=== PATIENT | male | born 1970 | race Caucasian/White ===

== ENCOUNTER 2017-08-25 15:09 | Inpatient (IN) | payer MEDICAID, SELFPAY ==
[2017-08-25] VITALS (14 sets, daily range): BP systolic 84–156; BP diastolic 52–144; PULSE 76–102; RESP 11–27; TEMP 37.2–39.5; O2SAT 93–99; BMI 23.8; BMI 21.6
--- NOTE | 2017-08-25 15:23 | EKG12_ITS ---
Test Reason : REPEAT Blood Pressure : / mmHG Vent. Rate : 080 BPM Atrial Rate : 080 BPM P-R Int : 170 ms QRS Dur : 086 ms QT Int : 336 ms P-R-T Axes : 059 023 054 degrees QTc Int : 387 ms Normal sinus rhythm Normal ECG Confirmed by TEAGAN CHO, ALKA ([id number]), manuscript editor MARGOTH ALVAREZ ([id number]) on 08/26/2017 12:57:05 PM Referred By: ABI Confirmed By:ALKA CANDELARIA MD
--- NOTE | 2017-08-25 15:25 | RAD_ITS ---
STUDY: X-RAY CHEST REASON FOR EXAM: Male, 46 years old. Chest pain. TECHNIQUE: Single AP portable view of the chest. COMPARISON: None. FINDINGS: There are monitoring devices. There are lower lung linear and groundglass opacities. There is no demonstrated pleural abnormality. Normal size heart. Normal mediastinum and loyda. Normal visualized pulmonary arteries. Normal visualized aortic arch and descending thoracic aorta. There is a dextroscoliosis of the thoracic spine. Normal visualized ribs, clavicles, and shoulders. There is no demonstrated abnormality of the visualized soft tissue structures of the upper abdomen. RAD/Chest 1 View (Portable) IMPRESSION: Lower lung infiltrates or atelectasis. Electronically Signed: Nik Khan MD at 16:05 EDT , Service support ,
[2017-08-25] MEDS: 0.9% Normal Saline 1,000 ML 150 ML IV (15:51)
[2017-08-25 16:17] LABS: Absolute Lymphocyte Count 0.95 X10^3/ul (0.83-4.51); Absolute Neutrophil Count 8.8 X10^3/uL (2.0-7.7); Basophil# 0.02 X10^3/uL; Basophil% 0.2 % (0-1); Eosinophil# 0.38 X10^3/uL; Eosinophils% 3.3 % (0-5); Hematocrit 38.8 % (40-54); Hemoglobin 12.7 g/dl (13.0-16.5); Lymphocyte # 0.95 X10^3/ul (4.0); Lymphocyte % 8.2 % (19-41); Mean Corp Hgb Conc 32.7 g/gl (32-36); Mean Corpuscular Hgb 29.3 pg (27.0-32.0); Mean Corpuscular Volume 89.4 fL (80-94); Mean Platelet Vol. 9.4 fl (6.2-12.0); Monocyte# 1.37 X10^3/uL; Monocyte% 11.8 % (0-10); Neutrophil # 8.82 X10^3/uL (2.7-7.7); Neutrophil % 76.2 % (47-70); Platelet Count 172 K/mm3 (150-450); RBC Distribution Width CV 13.9 % (11.6-14.6); RBC Distribution Width SD 45.8 fl (35.1-43.9); Red Blood Count 4.34 M/mm3 (4.6-6.2); White Blood Count 11.6 K/mm3 (4.4-11.0)
[2017-08-25 16:18] LABS: POSITIVE COUNT NO; POSITIVE DIFFERENTIAL NO; POSITIVE MORPHOLOGY NO
[2017-08-25 16:37] LABS: Anion Gap 4 (5-15); BUN 13 mg/dL (7-18); BUN/Creat Ratio 16.7 RATIO (10-20); Calcium,Total 8.8 mg/dL (8.5-10.1); Chloride 101 mmol/L (98-107); Creatinine, Serum 0.78 mg/dL (0.70-1.30); EST Glomerular Filtration Rate 113 mL/min (>60); Est Glom Filt Rate - Afr Amer 137 mL/min (>60); Estimated Creatinine Clearance 90.42 ml/min; Glucose 90 mg/dL (74-106); Lipase 76 U/L (73-393); Potassium 4.2 mmol/L (3.5-5.1); Sodium Level 135 mmol/L (136-145)
--- NOTE | 2017-08-25 16:57 | CT_ITS ---
STUDY: CT CHEST WITHOUT CONTRAST REASON FOR EXAM: Male, 46 years old. Left-sided chest pain. Shortness of breath. RADIATION DOSAGE (If Supplied By Facility): CTDIvol = ( 11.22 ) mGy, DLP = ( 356.00 ) mGycm TECHNIQUE: Transaxial imaging was performed without the administration of intravenous contrast material. Multiplanar coronal and sagittal images were reformatted. Individualized dose optimization techniques were used for this CT. COMPARISON: Chest x-ray FINDINGS: There are lower lung groundglass and linear increased opacities on the left more than the right. There is no demonstrated pleural abnormality. Normal heart and pericardium. Normal mediastinum. Normal hilar regions. Normal unenhanced pulmonary arteries. Normal aorta arch and descending thoracic aorta. There are multi-level degenerative changes of the thoracic spine. There is dextroscoliosis. There is no demonstrated abnormality of the visualized upper abdomen. CT/Chest without Contrast IMPRESSION: Lower lung edema or infiltrates. Electronically Signed: Nik Khan MD at 17:56 EDT , Service support ,
--- NOTE | 2017-08-25 17:02 | ED.DCSUM_ITS ---
- ER Visit Summary Date of Service: 08/25/17 Chief Complaint: [Chest pain] History of Present Illness: The patient is a 46 M [presents to the emergency department complaint of chest pain that started this afternoon around 2:30 PM. Patient was sitting and relaxing and when he got up he stated that he had pain in his chest and flexible he was rubbing his heart out. Patient did feel short of breath with it and described pain radiating down his left arm. Patient department states that he continues to have pain however he is a very poor informant as he does have a history of cognitive impairment/MR. Patient has a hard time describing the pain or word is located. Patient denies any recent illness. He denies fever or cough. Patient denies any abdominal pain. He denies recent travel or surgery. Patient does have a history of hypothyroidism and bipolar disorder.] Physical Examination: [HEENT-PERRLA, EOMI. Cranial nerves II through XII grossly intact. TMs clear. Mucous membranes moist. No adenopathy. Cardiovascular-regular rate and rhythm without murmur or ectopy Lungs-clear to auscultation, chest wall stable without crepitus or subcu emphysema Abdomen-normoactive bowel sounds, soft, nontender, no rebound or rigidity, no peritoneal signs. Skin exam-no rashes noted Extremities-intact ?4, normal range of motion, normal pulses, atraumatic] Test Results: [EKG obtained on arrival showed sinus rhythm with a ventricular rate of 94 bpm with no significant ST changes noted. CBC with differential showed a slightly elevated white blood cell count of 11.6, hemoglobin 12.7, hematocrit 39, platelets 172. Chemistries unremarkable. Troponin was less than 0.015. D-dimer was 0.40. Chest x-ray was read by radiology as left lower lobe infiltrate versus atelectasis due to increased markings in the left lower lobe.] Emergency Department Course and Treatment: [Patient received aspirin and nitroglycerin in the emergency department which did improve his pain. I did order blood cultures and lactate which is pending. Patient was started on Rocephin and Zithromax given his elevated temperature, tachypnea, and chest x- ray findings.] I discussed case with Dr. Bry Crowder who asked that we obtain a CT scan without contrast of the patient's chest to further evaluate for the pneumonia. Treatment Plan: [Admit for further workup and evaluation] Disposition: [Admit] Impression: [Chest pain Pneumonia Sepsis syndrome] This note was generated with [employer] dictation software. It may contain incorrect words, spelling, and punctuation that were not noted in review of the chart prior to signing ED Disposition - Plan for ED Patient: Chief Complaint: Chest Other Referrals: Bry Duran MD [Primary Care Provider] -
[2017-08-25] MEDS: Ceftriaxone 1 GM/50 ML BAG IV (17:09)
[2017-08-25 17:10] LABS: Lactic Acid 2.6 mmol/L (0.4-2.0)
[2017-08-25 19:03] LABS: Mucous, Urine 0 SEEN /hpf (<or=2+)
[2017-08-25 19:20] LABS: Color, Urine Yellow (Yellow); Glucose, Dipstick Normal (Normal); Ketone-Dipstick Negative (Negative); Leukocyte Esterase-Dipstick 500 /ul (Negative); Nitrite-Dipstick Positive (Negative); Occult Blood-Urine 25 /ul (Negative); Protein-Dipstick 15 mg/dl (Negative); Urine Bilirubin Dipstick Negative (Negative); Urine Clarity Cloudy (Clear); Urine Urobilinogen Normal (Normal)
--- NOTE | 2017-08-25 19:30 | EKG12_ITS ---
Test Reason : CP Blood Pressure : / mmHG Vent. Rate : 094 BPM Atrial Rate : 094 BPM P-R Int : 148 ms QRS Dur : 082 ms QT Int : 330 ms P-R-T Axes : 059 050 057 degrees QTc Int : 412 ms Normal sinus rhythm with sinus arrhythmia ST elevation consider inferior injury or acute infarct Abnormal ECG Confirmed by TEAGAN CHO, ALKA ([id number]), order editor MARGOTH ALVAREZ ([id number]) on 08/26/2017 12:57:31 PM Referred By: ABI Confirmed By:ALKA CANDELARIA MD
[2017-08-25 19:35] LABS: Bacteria 2+ /hpf (None Seen); Red Blood Cells-Urine 0-5 SEEN /hpf (0-5); Squamous Epithelial Cells - UA 0-5 SEEN /hpf (0-5); White Blood Cells 50-100 SEEN /hpf (0-5)
--- NOTE | 2017-08-25 19:57 | HP.PCM_ITS ---
Problem List (1) Chest pain Status: Acute Qualifiers: Chest pain type: precordial pain Qualified Code(s): R07.2 - Precordial pain History of Present Illness Date of Admission: 08/25/17 Chief Complaint: Chest pain The patient is a 46 year old M was seen in the emergency room at [facility] after being brought in by family members due to complaints of chest pain. Patient has a history of bipolar disorder, MRDD, and schizophrenia and was unable to provide a review of systems to this examiner, family members and the patient's nurse were present in the room during my examination and aided and obtaining a history from the patient. According to family members, patient stated that his chest pain started this afternoon and it was located over the left side of his chest, patient denied to family members that it radiated anywhere such as into the neck or down the arm. According to family members, patient was not complaining of chills or fever, he had no complaints of cough or sputum production. Evaluation in the emergency room included an EKG which showed a normal sinus rhythm without evidence of ischemic changes, patient's cardiac enzymes were unremarkable, patient's white blood cell count was 11.6, his temp was 100.4, patient's d-dimer was normal. Patient had an elevated lactic acid at 2.6. Chest x-ray revealed bibasilar infiltrates, I requested to the emergency room physician that a CAT scan be obtained and this CAT scan showed the presence of bibasilar infiltrates worse on the left. Patient was given IV antibiotics for community-acquired pneumonia, pulse ox on room air was not below 90%. Patient will be admitted to PCU for severe sepsis from bilateral community-acquired pneumonia, IV Rocephin and Zithromax will be continued, patient will receive aerosol treatments, cardiac enzymes will be cycled and repeat EKG will be obtained in the morning. Past Medical History Past Medical History (Chronic Problems): Chronic Problems Schizophrenia (Chronic) Mental retardation (Chronic) Celiac disease (Chronic) Bacterial pneumonia (Chronic) Bipolar disorder (Chronic) Allergies gluten Adverse Reaction (Verified 08/25/17 15:11) Other Home Medications: Ambulatory Orders Medication Instructions Recorded Acetaminophen [Tylenol] 650 mg PO Q8H PRN PRN 08/25/17 Benztropine [Cogentin] 2 mg PO QHS 08/25/17 Diclofenac [Voltaren] 75 mg PO BIDCM 08/25/17 Divalproex Sodium [Depakote ER] 250 mg PO TID 08/25/17 Levothyroxine Sodium [Synthroid] 50 mcg PO DAILY 08/25/17 Quetiapine Fumarate [Seroquel] 100 mg PO DAILY 08/25/17 Quetiapine Fumarate [Seroquel] 300 tab PO QHS 08/25/17 Valproic Acid 1,250 mg PO QHS 08/25/17 Valproic Acid 250 mg PO LUNCH 08/25/17 Valproic Acid 750 mg PO DAILY 08/25/17 Surgical History: herniorrhaphy, - - 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 Psychiatric History: Bipolar, Schizophrenia, - - MRDD Lives: With Family Smoking Status: Never smoker Tobacco Use: Non-smoker Alcohol: None Drugs: None - *Family History Maternal History Items: No pertinent history Paternal History Items: No pertinent history Review of Systems Comment: Review of systems was unobtainable from the patient due to schizophrenia, bipolar disorder, and mental retardation, history was obtained from family members present at the time of examination VTE Information - Inpt Only VTE Present on Admission: No VTE Mechan Device Prophylaxis: None VTE Pharm Prophylaxis ordered?: No Reason prophylaxis not ordered:: Treatment Not Indicated - low risk for VTE Patient Problems: Active and Suspected Problems Chest pain (Acute) - Physical Exam General: Alert, Cooperative, No apparent distress HEENT: Atraumatic, PERRLA, EOMI, Normocephalic Oral: Moist Mucosa Neck: Supple, No JVD, Negative Carotid Bruits, No Nuchal Rigidity, Trachea Midline, Thyroid Normal Size and Texture Lungs: Clear to auscultation, Normal air movement, No rhonchi, No wheeze, No rales Cardiovascular: Regular rate, Regular Rhythm, Normal S1, Normal S2, No murmurs, No Ectopic Activity, PMI Normal, No rub noted, No Gallop Abdomen: Bowel Sounds Present, Soft, Non Tender, Non-Distended, No hernias noted Extremities: No clubbing, No cyanosis, No edema, Capillary Refill Less than 3 Seconds Skin: No rashes, No breakdown Musculoskeletal: No Tenderness to Palpation of Joints or Extremities Neurological: Cranial nerves II-XII grossly intact, Neuro grossly intact, Sensory exam intact to light touch and pain Psych/Mental Status: Flat Affect, - - Obvious signs of cognitive impairment were noted Vital Signs Temp Pulse Resp BP Pulse Ox 100.4 F H 78 16 121/56 H 95 08/25/17 15:11 08/25/17 18:55 08/25/17 16:10 08/25/17 16:28 08/25/17 16:10 Laboratory Tests Past 24 Hrs 08/25/17 08/25/17 08/25/17 18:50 19:13 19:13 Lactic Acid Pending Troponin I Pending Urine Color Yellow Urine Clarity Cloudy Urine pH 7.0 Ur Specific [place] 1.010 Urine Protein 15 H Urine Glucose (UA) Normal Urine Ketones Negative Urine Occult Blood 25 H Urine Nitrite Positive H Urine Bilirubin Negative Urine Urobilinogen Normal Ur Leukocyte Esterase 500 H Urine RBC 0-5 SEEN Urine WBC 50-100 SEEN Ur Squamous Epith Cells 0-5 SEEN Urine Bacteria 2+ Urine Mucus 0 SEEN Assessment/Plan All Active Problems Chest pain (Acute) #1 Severe sepsis secondary to bilateral community-acquired pneumonia believed to be bacterial in nature-patient will be admitted to PCU, IV antibiotics will be continued, patient will be placed on aerosol treatments, follow-up labs will be obtained, urine will be obtained for Legionella and strep. Patient is not currently coughing or producing any sputum. Lactic acid will be repeated #2 bilateral community-acquired pneumonia-refer to #1 for treatment #3 bipolar disorder-patient will remain on his present medications #4 chest pain-believed to be pleuritic in nature, cardiac enzymes will be cycled , EKG will be repeated in the morning #5 schizophrenia #6 MRDD Code Visit Inpatient E&M: 03649 Init Hosp L3
[2017-08-25 20:16] LABS: Lactic Acid 1.5 mmol/L (0.4-2.0)
[2017-08-25] MEDS: Acetaminophen 325 MG Tablet 650 MG PO (20:21)
[2017-08-25 20:52] LABS: Reflex Lactate? Y
[2017-08-25] MEDS: QUEtiapine 100 MG Tablet 300 MG PO (21:03)
[2017-08-25] MEDS: 0.9% Normal Saline 1,000 ML 125 ML IV (21:03)
[2017-08-25] MEDS: Albuterol 2.5 MG/3 ML VIAL.NEB. INHALATION (23:56)
[2017-08-26] VITALS (16 sets, daily range): BP systolic 87–134; BP diastolic 56–68; PULSE 70–90; RESP 12–18; TEMP 36.6–37.3; O2SAT 93–100
[2017-08-26] MEDS: 0.9% Normal Saline 1,000 ML 999 ML IV ×2 (01:14→07:30)
[2017-08-26] MEDS: 0.9% Normal Saline 1,000 ML 125 ML IV (02:25)
[2017-08-26] MEDS: Acetaminophen 325 MG Tablet 650 MG PO (02:25)
[2017-08-26] MEDS: oxyCODONE 5 MG Tablet PO (03:22)
--- NOTE | 2017-08-26 05:55 | EKG12_ITS ---
Test Reason : AM EKG Blood Pressure : / mmHG Vent. Rate : 083 BPM Atrial Rate : 083 BPM P-R Int : 160 ms QRS Dur : 102 ms QT Int : 376 ms P-R-T Axes : 038 -02 016 degrees QTc Int : 441 ms Normal sinus rhythm Normal ECG When compared with ECG of 25-AUG-2017 19:35, MANUAL COMPARISON REQUIRED, DATA IS UNCONFIRMED Confirmed by CYNTHIA STAHL ([id number]), supervising editor trailer MARGOTH ALVAREZ ([id number]) on 08/30/2017 2:00:54 PM Referred By: DR DEL CID Confirmed By:CYNTHIA STAHL
[2017-08-26] MEDS: Levothyroxine 50 MCG Tablet PO (06:18)
--- NOTE | 2017-08-26 07:01 | NURSING ---
1L NS BOLUS STARTED @ 0701. NEW BAG NOT SCANNED AT THIS TIME. INFUSING CURRENT BAG OF NS FOR INITIAL 425 ML.
[2017-08-26 07:07] LABS: Absolute Lymphocyte Count 3.38 X10^3/ul (0.83-4.51); Absolute Neutrophil Count 7.5 X10^3/uL (2.0-7.7); Basophil# 0.02 X10^3/uL; Basophil% 0.2 % (0-1); Eosinophil# 0.47 X10^3/uL; Eosinophils% 3.6 % (0-5); Hematocrit 32.5 % (40-54); Hemoglobin 10.9 g/dl (13.0-16.5); Lymphocyte # 3.38 X10^3/ul (4.0); Lymphocyte % 25.9 % (19-41); Mean Corp Hgb Conc 33.5 g/gl (32-36); Mean Corpuscular Hgb 29.9 pg (27.0-32.0); Mean Platelet Vol. 8.9 fl (6.2-12.0); Monocyte# 1.67 X10^3/uL; Monocyte% 12.8 % (0-10); Neutrophil # 7.48 X10^3/uL (2.7-7.7); Neutrophil % 57.3 % (47-70); Platelet Count 161 K/mm3 (150-450); Red Blood Count 3.65 M/mm3 (4.6-6.2)
[2017-08-26 07:11] LABS: Differential Indicated SCAN CRITERIA MET; POSITIVE COUNT NO; POSITIVE DIFFERENTIAL YES; POSITIVE MORPHOLOGY NO
[2017-08-26 07:26] LABS: Lactic Acid 2.1 mmol/L (0.4-2.0)
[2017-08-26] MEDS: Albuterol 2.5 MG/3 ML VIAL.NEB. INHALATION ×3 (07:49→18:59)
--- NOTE | 2017-08-26 08:20 | PCM.PROGNOTE ---
Patient Problems: Active and Suspected Problems Chest pain (Acute) Subjective: Mr. Farah is a 46-year-old male with a past medical history of schizophrenia, mental retardation, celiac disease, hypothyroidism and bipolar disorder who presented to the emergency department at [facility] on 08/25/2017 complaining of chest pain. He is a very poor historian and history was provided by family. Vital signs at presentation to the emergency room were temperature 100.4, pulse rate 102, blood pressure 156/144 (recheck was 111/77), respiratory rate of 24 and he was 94% saturated on room air. White blood cell count was elevated at 11.6 with a left shift. Hemoglobin was low at 12.7 and platelets were within normal limits. Sodium was mildly decreased at 135 and the BUN was 13 with a creatinine of 0.78. Lactic acid was 2.6 and troponin was less than 0.015. UA showed 50-100 WBCs per high-power field with 2+ bacteria and positive nitrites. Chest x-ray showed lower lung linear and groundglass opacities. A CT of the chest was done and showed once again lower lung groundglass and linear opacities, left greater than right.. His family stated he had not been coughing and on physical examination the lungs were clear to auscultation. He was admitted to the hospital with a diagnosis of severe sepsis secondary to bilateral pneumonia and urinary tract infection. I suspect the changes in the lungs may be secondary to bacteremic spread from a urinary tract infection. He was started on Rocephin. 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 He has not been having a problem with incontinence. T-max 103.1?F Blood pressure dropped to 84/52 following admission and the patient was bolused with IV fluids with improvement. Blood pressure this a.m. was 87/56 and he was again bolused and current blood pressure is 98/64. Pulse ox is 100% on room air today. Legionella and streptococcal antigens in the urine were negative. Blood cultures are pending. White blood cell count today is 13.0 with an unremarkable differential. Hemoglobin is 10.9 and platelets are within normal limits. Lactic acid was 1.5 on a recheck from the emergency room but today is up to 2.1 again. - Physical Exam General: Alert, Cooperative, No apparent distress, - - he is able to converse with me today and he is appropriate. He tells me he had a mild cough but it has resolved. He says that it vazquez when he uruinates Oral: Moist Mucosa Neck: Supple, No Nodes, Trachea Midline Lungs: Clear to auscultation Cardiovascular: Regular rate, Regular Rhythm, Normal S1, Normal S2, No murmurs, No rub noted, No Gallop Abdomen: Bowel Sounds Present, Soft, Non-Distended, Tender - in the suprapubic area with palpation Extremities: No clubbing, No cyanosis, No edema, Peripheral Pulses Normal Skin: No rashes Psych/Mental Status: Appropriate Vital Signs Temp Pulse Resp BP Pulse Ox 97.8 F 72 16 98/64 100 08/26/17 07:55 08/26/17 07:55 08/26/17 07:55 08/26/17 07:55 08/26/17 07:55 Oxygen Flow Rate (L/min) 2 Oxygen Delivery Method Room Air Weight: 118 lb 6.212 oz Body Mass Index (BMI) 21.6 Intake and Output for Last 24 Hours 08/24/17 08/25/17 08/26/17 23:59 23:59 23:59 Intake Total 1236 / 1236 1779 / 1779 Output Total 425 / 425 250 / 250 Balance 811 / 811 1529 / 1529 Microbiology Past 72 Hours 08/25/17 18:50 Streptococcus pneumoniae Antigen (M - Final Urine, Clean Catch 08/25/17 18:50 Legionella Antigen - Final Urine, Clean Catch Laboratory Tests Past 24 Hrs 08/25/17 08/25/17 08/25/17 18:50 19:13 19:13 WBC RBC Hgb Hct MCV MCH MCHC RDW RDW Differential Plt Count MPV Immature Gran % (Auto) Neut % (Auto) Lymph % (Auto) [place] % (Auto) Eos % (Auto) Baso % (Auto) Absolute Neuts (auto) Absolute Lymphs (auto) Total Counted Lactic Acid 1.5 Troponin I < 0.015 Urine Color Yellow Urine Clarity Cloudy Urine pH 7.0 Ur Specific [place] 1.010 Urine Protein 15 H Urine Glucose (UA) Normal Urine Ketones Negative Urine Occult Blood 25 H Urine Nitrite Positive H Urine Bilirubin Negative Urine Urobilinogen Normal Ur Leukocyte Esterase 500 H Urine RBC 0-5 SEEN Urine WBC 50-100 SEEN Ur Squamous Epith Cells 0-5 SEEN Urine Bacteria 2+ Urine Mucus 0 SEEN 08/25/17 08/26/17 08/26/17 22:03 06:40 06:40 WBC 13.0 H RBC 3.65 L Hgb 10.9 L Hct 32.5 L MCV 89.0 MCH 29.9 MCHC 33.5 RDW 14.0 RDW Differential 45.0 H Plt Count 161 MPV 8.9 Immature Gran % (Auto) 0.200 Neut % (Auto) 57.3 Lymph % (Auto) 25.9 Swisher % (Auto) 12.8 H Eos % (Auto) 3.6 Baso % (Auto) 0.2 Absolute Neuts (auto) 7.5 Absolute Lymphs (auto) 3.38 Total Counted Not Reportable Lactic Acid 2.1 H Troponin I < 0.015 Urine Color Urine Clarity Urine pH Ur Specific [place] Urine Protein Urine Glucose (UA) Urine Ketones Urine Occult Blood Urine Nitrite Urine Bilirubin Urine Urobilinogen Ur Leukocyte Esterase Urine RBC Urine WBC Ur Squamous Epith Cells Urine Bacteria Urine Mucus Medical Necessity - Tobacco Use Smoking Status: Never smoker Tobacco Use: Non-smoker Assessment/Plan All Active Problems Chest pain (Acute) Impressions 1. severe sepsis due to UTI and PNA - suspect the PNA may be due to bacteremic spread 2. schizophrenia 3. Mental retardation 4. Celiac disease 5. Hypothyroidism 6. Bipolar disorder 7. Normochromic normocytic anemia 8. Borderline hyponatremia Add Levaquin and DC the Azithromycin Order a urine culture Increase the IV rate Check a TSH and valproic acid level Check a liver panel PA and lateral chest x-ray today Recheck lab in the a.m. Code Visit Inpatient E&M: 85022 Subs Hosp L3
--- NOTE | 2017-08-26 08:43 | PN_ITS ---
Patient Problems: Active and Suspected Problems Chest pain (Acute) Subjective: Mr. Farah is a 46-year-old male with a past medical history of schizophrenia, mental retardation, celiac disease, hypothyroidism and bipolar disorder who presented to the emergency department at [facility] on 08/25/2017 complaining of chest pain. He is a very poor historian and history was provided by family. Vital signs at presentation to the emergency room were temperature 100.4, pulse rate 102, blood pressure 156/144 ( recheck was 111/77), respiratory rate of 24 and he was 94% saturated on room air. White blood cell count was elevated at 11.6 with a left shift. Hemoglobin was low at 12.7 and platelets were within normal limits. Sodium was mildly decreased at 135 and the BUN was 13 with a creatinine of 0.78. Lactic acid was 2.6 and troponin was less than 0.015. UA showed 50-100 WBCs per high- power field with 2+ bacteria and positive nitrites. Chest x-ray showed lower lung linear and groundglass opacities. A CT of the chest was done and showed once again lower lung groundglass and linear opacities, left greater than right.. His family stated he had not been coughing and on physical examination the lungs were clear to auscultation. He was admitted to the hospital with a diagnosis of severe sepsis secondary to bilateral pneumonia and urinary tract infection. I suspect the changes in the lungs may be secondary to bacteremic spread from a urinary tract infection. He was started on Rocephin. 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 He has not been having a problem with incontinence. T-max 103.1?F Blood pressure dropped to 84/52 following admission and the patient was bolused with IV fluids with improvement. Blood pressure this a.m. was 87/56 and he was again bolused and current blood pressure is 98/64. Pulse ox is 100% on room air today. Legionella and streptococcal antigens in the urine were negative. Blood cultures are pending. White blood cell count today is 13.0 with an unremarkable differential. Hemoglobin is 10.9 and platelets are within normal limits. Lactic acid was 1.5 on a recheck from the emergency room but today is up to 2.1 again. - Physical Exam General: Alert, Cooperative, No apparent distress, - - he is able to converse with me today and he is appropriate. He tells me he had a mild cough but it has resolved. He says that it vazquez when he uruinates Oral: Moist Mucosa Neck: Supple, No Nodes, Trachea Midline Lungs: Clear to auscultation Cardiovascular: Regular rate, Regular Rhythm, Normal S1, Normal S2, No murmurs, No rub noted, No Gallop Abdomen: Bowel Sounds Present, Soft, Non-Distended, Tender - in the suprapubic area with palpation Extremities: No clubbing, No cyanosis, No edema, Peripheral Pulses Normal Skin: No rashes Psych/Mental Status: Appropriate Vital Signs Temp Pulse Resp BP Pulse Ox 97.8 F 72 16 98/64 100 08/26/17 07:55 08/26/17 07:55 08/26/17 07:55 08/26/17 07:55 08/26/17 07:55 Oxygen Flow Rate (L/min) 2 Oxygen Delivery Method Room Air Weight: 118 lb 6.212 oz Body Mass Index (BMI) 21.6 Intake and Output for Last 24 Hours 08/24/17 08/25/17 08/26/17 23:59 23:59 23:59 Intake Total 1236 / 1236 1779 / 1779 Output Total 425 / 425 250 / 250 Balance 811 / 811 1529 / 1529 Microbiology Past 72 Hours 08/25/17 18:50 Streptococcus pneumoniae Antigen (M - Final Urine, Clean Catch 08/25/17 18:50 Legionella Antigen - Final Urine, Clean Catch Laboratory Tests Past 24 Hrs 08/25/17 08/25/17 08/25/17 18:50 19:13 19:13 WBC RBC Hgb Hct MCV MCH MCHC RDW RDW Differential Plt Count MPV Immature Gran % (Auto) Neut % (Auto) Lymph % (Auto) [place] % (Auto) Eos % (Auto) Baso % (Auto) Absolute Neuts (auto) Absolute Lymphs (auto) Total Counted Lactic Acid 1.5 Troponin I < 0.015 Urine Color Yellow Urine Clarity Cloudy Urine pH 7.0 Ur Specific [place] 1.010 Urine Protein 15 H Urine Glucose (UA) Normal Urine Ketones Negative Urine Occult Blood 25 H Urine Nitrite Positive H Urine Bilirubin Negative Urine Urobilinogen Normal Ur Leukocyte Esterase 500 H Urine RBC 0-5 SEEN Urine WBC 50-100 SEEN Ur Squamous Epith Cells 0-5 SEEN Urine Bacteria 2+ Urine Mucus 0 SEEN 08/25/17 08/26/17 08/26/17 22:03 06:40 06:40 WBC 13.0 H RBC 3.65 L Hgb 10.9 L Hct 32.5 L MCV 89.0 MCH 29.9 MCHC 33.5 RDW 14.0 RDW Differential 45.0 H Plt Count 161 MPV 8.9 Immature Gran % (Auto) 0.200 Neut % (Auto) 57.3 Lymph % (Auto) 25.9 [place] % (Auto) 12.8 H Eos % (Auto) 3.6 Baso % (Auto) 0.2 Absolute Neuts (auto) 7.5 Absolute Lymphs (auto) 3.38 Total Counted Not Reportable Lactic Acid 2.1 H Troponin I < 0.015 Urine Color Urine Clarity Urine pH Ur Specific [place] Urine Protein Urine Glucose (UA) Urine Ketones Urine Occult Blood Urine Nitrite Urine Bilirubin Urine Urobilinogen Ur Leukocyte Esterase Urine RBC Urine WBC Ur Squamous Epith Cells Urine Bacteria Urine Mucus Medical Necessity - Tobacco Use Smoking Status: Never smoker Tobacco Use: Non-smoker Assessment/Plan All Active Problems Chest pain (Acute) Impressions 1. severe sepsis due to UTI and PNA - suspect the PNA may be due to bacteremic spread 2. schizophrenia 3. Mental retardation 4. Celiac disease 5. Hypothyroidism 6. Bipolar disorder 7. Normochromic normocytic anemia 8. Borderline hyponatremia Add Levaquin and DC the Azithromycin Order a urine culture Increase the IV rate Check a TSH and valproic acid level Check a liver panel PA and lateral chest x-ray today Recheck lab in the a.m. Code Visit Inpatient E&M: [id number] Subs Hosp L3
[2017-08-26 09:09] LABS: Valproic Acid (Depakene) Level 121 ug/mL (50-100)
[2017-08-26 09:16] LABS: AST(SGOT) 17 U/L (15-37); Alanine Aminotransfer ALT/SGPT 12 U/L (16-61); Albumin, Serum 2.6 g/dL (3.2-5.0); Alkaline Phosphatase 48 U/L (45-117); Bilirubin, Direct 0.09 mg/dL (0.00-0.30); Globulin 3.7 g/dL (2.2-4.2); Protein, Total 6.3 g/dL (6.4-8.2); Thyroid Stim Hormone (TSH) 2.25 uIU/mL (0.358-3.74)
[2017-08-26] MEDS: Ceftriaxone 1 GM/50 ML BAG IV (09:45)
[2017-08-26] MEDS: 0.9% Normal Saline 1,000 ML 200 ML IV ×2 (09:45→16:32)
[2017-08-26] MEDS: levoFLOXacin IV 750 MG/150 ML BAG 100 MG IV (09:45)
[2017-08-26] MEDS: QUEtiapine 100 MG Tablet PO (09:47)
[2017-08-26 10:50] LABS: Reflex Lactate? Y
[2017-08-26 11:40] LABS: Lactic Acid 1.1 mmol/L (0.4-2.0)
--- NOTE | 2017-08-26 12:59 | CASEMGMT ---
This RN CM to room to complete CM assessment and there is no family in room at this time. Pt is alert to person only and unable to answer questions appropriately at this time. This RN CM will attempt again later. SStmaria fernanda RN CM
--- NOTE | 2017-08-26 14:57 | CASEMGMT ---
Face to Face with patient for initial transition planning/care coordination assessment. ROOPA PETERSEN introduced self and role at [facility], pt's CM, Nickie Skaggs, voices understanding and consents to assessment at this time. Pt is sitting up in bed in no distress at this time. Pt is alert to self but unable to answer questions for self at this time. Care providers, pharmacy, and demographics verified. See attached link. CM voices no further concerns/needs except to know physician's plan of care. Dr. Sal states she will be down to speak with CM before she has to leave in the next hour. PLAN: [place] w/ family [place] ROOP[place] PETERSEN
[2017-08-26] MEDS: QUEtiapine 100 MG Tablet 300 MG PO (21:52)
[2017-08-27] VITALS (13 sets, daily range): BP systolic 102–108; BP diastolic 65–77; PULSE 71–97; RESP 16–18; TEMP 36.6–36.9; O2SAT 95–100
[2017-08-27] MEDS: 0.9% Normal Saline 1,000 ML 150 ML IV (01:00)
[2017-08-27] MEDS: Albuterol 2.5 MG/3 ML VIAL.NEB. INHALATION ×3 (01:08→20:02)
[2017-08-27] MEDS: Levothyroxine 50 MCG Tablet PO (06:39)
[2017-08-27 06:54] LABS: Absolute Lymphocyte Count 2.45 X10^3/ul (0.83-4.51); Absolute Neutrophil Count 4.1 X10^3/uL (2.0-7.7); Basophil# 0.03 X10^3/uL; Basophil% 0.4 % (0-1); Eosinophils% 7.4 % (0-5); Hematocrit 33.7 % (40-54); Hemoglobin 11.3 g/dl (13.0-16.5); Lymphocyte # 2.45 X10^3/ul (4.0); Lymphocyte % 30.4 % (19-41); Mean Corp Hgb Conc 33.5 g/gl (32-36); Mean Corpuscular Volume 89.4 fL (80-94); Mean Platelet Vol. 9.1 fl (6.2-12.0); Monocyte# 0.82 X10^3/uL; Monocyte% 10.2 % (0-10); Neutrophil # 4.14 X10^3/uL (2.7-7.7); Neutrophil % 51.2 % (47-70); Platelet Count 172 K/mm3 (150-450); RBC Distribution Width CV 14.3 % (11.6-14.6); RBC Distribution Width SD 46.2 fl (35.1-43.9); Red Blood Count 3.77 M/mm3 (4.6-6.2); White Blood Count 8.1 K/mm3 (4.4-11.0)
[2017-08-27 07:15] LABS: Anion Gap 5 (5-15); BUN 5 mg/dL (7-18); BUN/Creat Ratio 8.3 RATIO (10-20); Calcium,Total 8.3 mg/dL (8.5-10.1); Chloride 112 mmol/L (98-107); EST Glomerular Filtration Rate 153 mL/min (>60); Est Glom Filt Rate - Afr Amer 185 mL/min (>60); Glucose 86 mg/dL (74-106); Phosphorus 2.6 mg/dL (2.5-4.9); Potassium 3.8 mmol/L (3.5-5.1); Sodium Level 143 mmol/L (136-145)
[2017-08-27 07:19] LABS: POSITIVE COUNT NO; POSITIVE DIFFERENTIAL NO; POSITIVE MORPHOLOGY NO
[2017-08-27] MEDS: Ceftriaxone 1 GM/50 ML BAG IV (09:36)
[2017-08-27] MEDS: levoFLOXacin IV 750 MG/150 ML BAG 100 MG IV (09:36)
[2017-08-27] MEDS: QUEtiapine 100 MG Tablet PO (09:37)
--- NOTE | 2017-08-27 13:16 | PCM.PN.HOSP ---
Patient Problems: Active and Suspected Problems Chest pain (Acute) Subjective: Patient is a 46-year-old male with a history of schizophrenia, mental retardation, hypothyroidism, hype bipolar disorder and celiac disease. He was admitted on 08/25/2017 with complaint of chest pain. He was a very poor historian and history was taken from his family. Not much information could be given about chest pain. Vitals in the ED with temperature of 100.4 with pulse rate of 102 respiratory rate of 24 and saturating of 94% on room air with blood pressure of [id number] for recheck of 111/77. UA showed elevated white cell count and 2+ bacteria and positive nitrites. Lactic acid was 2.6 and troponin was normal. Chest x-ray done showed lower lung linear and groundglass opacities in the CT of the chest showed groundglass opacities and linear opacities greater on the left than the right. He has been managed for sepsis due to bilateral pneumonia and UTI. He was started on IV Rocephin. Subsequently temperature went up to 103.1 and blood pressure dropped to 84/52 which responded to IV fluids. Urine antigens for Legionella and strep were negative. Is on IV Rocephin. Patient seen and examined. He was just mumbling to himself and not able to answer any questions. He as alert. Unable to do review of systems. Vitals/I&O's: Vital Signs Temp Pulse Resp BP Pulse Ox 98.1 F 81 16 105/70 100 08/27/17 09:34 08/27/17 11:29 08/27/17 09:34 08/27/17 09:34 08/27/17 09:34 Oxygen Flow Rate (L/min) 2 Oxygen Delivery Method Room Air Weight: 118 lb 6.212 oz Body Mass Index (BMI) 21.6 Intake and Output for Last 24 Hours 08/25/17 08/26/17 08/27/17 23:59 23:59 23:59 Intake Total 1236 / 1236 5299 / 5299 900 / 900 Output Total 425 / 425 250 / 250 700 / 700 Balance 811 / 811 5049 / 5049 200 / 200 General: Alert, Cooperative, No apparent distress HEENT: Atraumatic, PERRLA, EOMI, Normocephalic Oral: Moist Mucosa Neck: Supple, No JVD, Negative Carotid Bruits Lungs: - - decreased breath sounds bibasally. Cardiovascular: Regular rate, Regular Rhythm, Normal S1, Normal S2, No murmurs Abdomen: Bowel Sounds Present, Soft, Non Tender, Non-Distended, No Hepato-splenomegaly Extremities: No clubbing, No cyanosis, No edema, Capillary Refill Less than 3 Seconds Skin: No rashes, No breakdown Musculoskeletal: No Tenderness to Palpation of Joints or Extremities Lymphatic: No Cervical, Supraclavicular, or Inguinal Adenopathy Neurological: Cranial nerves II-XII grossly intact Psych/Mental Status: Impulsive Microbiology Past 72 Hours 08/25/17 18:50 Urine, Random Urine Culture - Preliminary Gram negative dayna 08/26/17 11:00 Mucosa - Nose Respiratory Panel (PCR) - Final 08/25/17 18:50 Urine, Clean Catch Streptococcus pneumoniae Antigen (M - Final 08/25/17 18:50 Urine, Clean Catch Legionella Antigen - Final Laboratory Results 08/27/17 06:38: WBC 8.1, RBC 3.77 L, Hgb 11.3 L, Hct 33.7 L, MCV 89.4, MCH 30.0, MCHC 33.5, RDW 14.3, RDW Differential 46.2 H, Plt Count 172, MPV 9.1, Immature Gran % (Auto) 0.400, Neut % (Auto) 51.2, Lymph % (Auto) 30.4, [place] % (Auto) 10.2 H, Eos % (Auto) 7.4 H, Baso % (Auto) 0.4, Absolute Neuts (auto) 4.1, Absolute Lymphs (auto) 2.45, Total Counted Not Reportable 08/27/17 06:38: Sodium 143, Potassium 3.8, Chloride 112 H, Carbon Dioxide 26.0, Anion Gap 5, BUN 5 L, Creatinine 0.60 L, Estim Creat Clear Calc 115.60, Est GFR (MDRD) Af Amer 185, Est GFR (MDRD) Non-Af 153, BUN/Creatinine Ratio 8.3 L, Glucose 86, Calcium 8.3 L, Phosphorus 2.6, Magnesium 2.0 Current Medications Acetaminophen (Tylenol) 650 mg PO Q6H PRN PRN PRN Reason: Mild Pain (1-3)/Temp > 100.7 F Last Admin: 08/26/17 02:25 Dose: 650 mg Albuterol Sulfate (Ventolin Aerosols) 2.5 mg INHALATION Q6H.RT [facility] Last Admin: 08/27/17 07:12 Dose: 2.5 mg Ceftriaxone Sodium (Rocephin) 1 gm in 50 mls @ 100 mls/hr IV Q24 [facility] Last Admin: 08/27/17 09:36 Dose: 100 mls/hr Levofloxacin (Levaquin Iv) 750 mg in 150 mls @ 100 mls/hr IV Q24 [facility] Last Admin: 08/27/17 09:36 Dose: 100 mls/hr Sodium Chloride () 1,000 mls @ 150 mls/hr IV .Q6H40M [facility] Last Admin: 08/27/17 01:00 Dose: 150 mls/hr Levothyroxine Sodium (Synthroid) 50 mcg PO DAILY@0600 [facility] Last Admin: 08/27/17 06:39 Dose: 50 mcg Nutritional Formula (Lactose Free) (Ensure Enlive) 120 ml PO 4X/DAY [facility] Last Admin: 08/27/17 09:37 Dose: 120 ml Quetiapine Fumarate (Seroquel) 300 mg PO QHS [facility] Last Admin: 08/26/17 21:52 Dose: 300 mg Quetiapine Fumarate (Seroquel) 100 mg PO DAILY [facility] Last Admin: 08/27/17 09:37 Dose: 100 mg Sodium Chloride () 5 - 30 ml IV UD PRN PRN Reason: SALINE FLUSH Valproic Acid (Depakene) 250 mg PO LUNCH [facility] Last Admin: 08/27/17 09:37 Dose: 250 mg Valproic Acid (Depakene) 750 mg PO DAILY@0700 [facility] Last Admin: 08/27/17 06:39 Dose: 750 mg Valproic Acid (Depakene) 1,250 mg PO QHS [facility] Last Admin: 08/26/17 21:53 Dose: 1,250 mg Medical Necessity - Tobacco Use Smoking Status: Never smoker Tobacco Use: Non-smoker Assessment/Plan All Active Problems Chest pain (Acute) 1. Severe sepsis due to UTI and pneumonia fever has resolved. SIRS criteria is 0/4 leucoytosis has resolved. blood cultures pending. on IV ceftriaxone and IV levofloxacin. Will continue. urine cultured gram negative rods 2. Normocytic, normochromic anemia Hb is 11.3. stable. Will monitor 3. Hypothyroidism: on synthroid. TSH is 2.25. Will monitor 4. Bipolar disorder, schizophrenia and mental retardation on seroquel and valproic acid 5. DVT prophylaxis: will start heparin. SCDs Code Visit Inpatient E&M: 73937 Subs Hosp L3
--- NOTE | 2017-08-27 13:26 | PN_ITS ---
Patient Problems: Active and Suspected Problems Chest pain (Acute) Subjective: Patient is a 46-year-old male with a history of schizophrenia, mental retardation, hypothyroidism, hype bipolar disorder and celiac disease. He was admitted on 08/25/2017 with complaint of chest pain. He was a very poor historian and history was taken from his family. Not much information could be given about chest pain. Vitals in the ED with temperature of 100.4 with pulse rate of 102 respiratory rate of 24 and saturating of 94% on room air with blood pressure of [id number] for recheck of 111/77. UA showed elevated white cell count and 2+ bacteria and positive nitrites. Lactic acid was 2.6 and troponin was normal. Chest x-ray done showed lower lung linear and groundglass opacities in the CT of the chest showed groundglass opacities and linear opacities greater on the left than the right. He has been managed for sepsis due to bilateral pneumonia and UTI. He was started on IV Rocephin. Subsequently temperature went up to 103.1 and blood pressure dropped to 84/52 which responded to IV fluids. Urine antigens for Legionella and strep were negative. Is on IV Rocephin. Patient seen and examined. He was just mumbling to himself and not able to answer any questions. He as alert. Unable to do review of systems. Vitals/I&O's: Vital Signs Temp Pulse Resp BP Pulse Ox 98.1 F 81 16 105/70 100 08/27/17 09:34 08/27/17 11:29 08/27/17 09:34 08/27/17 09:34 08/27/17 09:34 Oxygen Flow Rate (L/min) 2 Oxygen Delivery Method Room Air Weight: 118 lb 6.212 oz Body Mass Index (BMI) 21.6 Intake and Output for Last 24 Hours 08/25/17 08/26/17 08/27/17 23:59 23:59 23:59 Intake Total 1236 / 1236 5299 / 5299 900 / 900 Output Total 425 / 425 250 / 250 700 / 700 Balance 811 / 811 5049 / 5049 200 / 200 General: Alert, Cooperative, No apparent distress HEENT: Atraumatic, PERRLA, EOMI, Normocephalic Oral: Moist Mucosa Neck: Supple, No JVD, Negative Carotid Bruits Lungs: - - decreased breath sounds bibasally. Cardiovascular: Regular rate, Regular Rhythm, Normal S1, Normal S2, No murmurs Abdomen: Bowel Sounds Present, Soft, Non Tender, Non-Distended, No Hepato- splenomegaly Extremities: No clubbing, No cyanosis, No edema, Capillary Refill Less than 3 Seconds Skin: No rashes, No breakdown Musculoskeletal: No Tenderness to Palpation of Joints or Extremities Lymphatic: No Cervical, Supraclavicular, or Inguinal Adenopathy Neurological: Cranial nerves II-XII grossly intact Psych/Mental Status: Impulsive Microbiology Past 72 Hours 08/25/17 18:50 Urine, Random Urine Culture - Preliminary Gram negative dayna 08/26/17 11:00 Mucosa - Nose Respiratory Panel (PCR) - Final 08/25/17 18:50 Urine, Clean Catch Streptococcus pneumoniae Antigen (M - Final 08/25/17 18:50 Urine, Clean Catch Legionella Antigen - Final Laboratory Results 08/27/17 06:38: WBC 8.1, RBC 3.77 L, Hgb 11.3 L, Hct 33.7 L, MCV 89.4, MCH 30.0 , MCHC 33.5, RDW 14.3, RDW Differential 46.2 H, Plt Count 172, MPV 9.1, Immature Gran % (Auto) 0.400, Neut % (Auto) 51.2, Lymph % (Auto) 30.4, [place] % ( Auto) 10.2 H, Eos % (Auto) 7.4 H, Baso % (Auto) 0.4, Absolute Neuts (auto) 4.1, Absolute Lymphs (auto) 2.45, Total Counted Not Reportable 08/27/17 06:38: Sodium 143, Potassium 3.8, Chloride 112 H, Carbon Dioxide 26.0, Anion Gap 5, BUN 5 L, Creatinine 0.60 L, Estim Creat Clear Calc 115.60, Est GFR (MDRD) Af Amer 185, Est GFR (MDRD) Non-Af 153, BUN/Creatinine Ratio 8.3 L, Glucose 86, Calcium 8.3 L, Phosphorus 2.6, Magnesium 2.0 Current Medications Acetaminophen (Tylenol) 650 mg PO Q6H PRN PRN PRN Reason: Mild Pain (1-3)/Temp > 100.7 F Last Admin: 08/26/17 02:25 Dose: 650 mg Albuterol Sulfate (Ventolin Aerosols) 2.5 mg INHALATION Q6H.RT REPLACED BY [facility] Last Admin: 08/27/17 07:12 Dose: 2.5 mg Ceftriaxone Sodium (Rocephin) 1 gm in 50 mls @ 100 mls/hr IV Q24 REPLACED BY [facility] Last Admin: 08/27/17 09:36 Dose: 100 mls/hr Levofloxacin (Levaquin Iv) 750 mg in 150 mls @ 100 mls/hr IV Q24 REPLACED BY [facility] Last Admin: 08/27/17 09:36 Dose: 100 mls/hr Sodium Chloride () 1,000 mls @ 150 mls/hr IV .Q6H40M REPLACED BY [facility] Last Admin: 08/27/17 01:00 Dose: 150 mls/hr Levothyroxine Sodium (Synthroid) 50 mcg PO DAILY@0600 REPLACED BY [facility] Last Admin: 08/27/17 06:39 Dose: 50 mcg Nutritional Formula (Lactose Free) (Ensure Enlive) 120 ml PO 4X/DAY REPLACED BY [facility] Last Admin: 08/27/17 09:37 Dose: 120 ml Quetiapine Fumarate (Seroquel) 300 mg PO QHS REPLACED BY [facility] Last Admin: 08/26/17 21:52 Dose: 300 mg Quetiapine Fumarate (Seroquel) 100 mg PO DAILY REPLACED BY [facility] Last Admin: 08/27/17 09:37 Dose: 100 mg Sodium Chloride () 5 - 30 ml IV UD PRN PRN Reason: SALINE FLUSH Valproic Acid (Depakene) 250 mg PO LUNCH REPLACED BY [facility] Last Admin: 08/27/17 09:37 Dose: 250 mg Valproic Acid (Depakene) 750 mg PO DAILY@0700 REPLACED BY [facility] Last Admin: 08/27/17 06:39 Dose: 750 mg Valproic Acid (Depakene) 1,250 mg PO QHS REPLACED BY [facility] Last Admin: 08/26/17 21:53 Dose: 1,250 mg Medical Necessity - Tobacco Use Smoking Status: Never smoker Tobacco Use: Non-smoker Assessment/Plan All Active Problems Chest pain (Acute) 1. Severe sepsis due to UTI and pneumonia * fever has resolved. SIRS criteria is 0/4 * leucoytosis has resolved. * blood cultures pending. * on IV ceftriaxone and IV levofloxacin. Will continue. * urine cultured gram negative rods 2. Normocytic, normochromic anemia * Hb is 11.3. stable. Will monitor * 3. Hypothyroidism: on synthroid. TSH is 2.25. Will monitor 4. Bipolar disorder, schizophrenia and mental retardation * on seroquel and valproic acid 5. DVT prophylaxis: will start heparin. SCDs Code Visit Inpatient E&M: 39082 Subs Hosp L3
[2017-08-27] MEDS: Heparin Injection (Vial) 5,000 UNIT/ML VIAL 5000 UNIT SC (22:57)
[2017-08-27] MEDS: QUEtiapine 100 MG Tablet 300 MG PO (22:57)
[2017-08-28] VITALS (10 sets, daily range): BP systolic 100–110; BP diastolic 62–70; PULSE 78–97; RESP 16–19; TEMP 36.8–37.1; O2SAT 95–96
[2017-08-28] MEDS: Albuterol 2.5 MG/3 ML VIAL.NEB. INHALATION ×3 (01:00→19:47)
[2017-08-28] MEDS: Levothyroxine 50 MCG Tablet PO (06:27)
[2017-08-28 06:52] LABS: Absolute Lymphocyte Count 2.64 X10^3/ul (0.83-4.51); Absolute Neutrophil Count 2.9 X10^3/uL (2.0-7.7); Basophil# 0.03 X10^3/uL; Basophil% 0.4 % (0-1); Eosinophil# 0.83 X10^3/uL; Eosinophils% 11.4 % (0-5); Hematocrit 36.8 % (40-54); Hemoglobin 12.3 g/dl (13.0-16.5); Lymphocyte # 2.64 X10^3/ul (4.0); Lymphocyte % 36.2 % (19-41); Mean Corp Hgb Conc 33.4 g/gl (32-36); Mean Corpuscular Hgb 29.9 pg (27.0-32.0); Mean Corpuscular Volume 89.3 fL (80-94); Mean Platelet Vol. 9.5 fl (6.2-12.0); Monocyte# 0.85 X10^3/uL; Monocyte% 11.7 % (0-10); Neutrophil # 2.88 X10^3/uL (2.7-7.7); Neutrophil % 39.5 % (47-70); Platelet Count 172 K/mm3 (150-450); RBC Distribution Width CV 14.4 % (11.6-14.6); RBC Distribution Width SD 46.6 fl (35.1-43.9); Red Blood Count 4.12 M/mm3 (4.6-6.2); White Blood Count 7.3 K/mm3 (4.4-11.0)
[2017-08-28 06:58] LABS: POSITIVE COUNT NO; POSITIVE DIFFERENTIAL NO; POSITIVE MORPHOLOGY NO
[2017-08-28 07:04] LABS: Anion Gap 8 (5-15); BUN 9 mg/dL (7-18); BUN/Creat Ratio 11.7 RATIO (10-20); Calcium,Total 9.1 mg/dL (8.5-10.1); Chloride 106 mmol/L (98-107); Creatinine, Serum 0.77 mg/dL (0.70-1.30); EST Glomerular Filtration Rate 115 mL/min (>60); Est Glom Filt Rate - Afr Amer 139 mL/min (>60); Estimated Creatinine Clearance 90.08 ml/min; Glucose 88 mg/dL (74-106); Potassium 4.2 mmol/L (3.5-5.1); Sodium Level 142 mmol/L (136-145)
[2017-08-28] MEDS: 0.9% NaCl Peripheral Flush Adult/Peds IV (09:35)
[2017-08-28] MEDS: Heparin Injection (Vial) 5,000 UNIT/ML VIAL 5000 UNIT SC (09:39)
[2017-08-28] MEDS: Ceftriaxone 1 GM/50 ML BAG IV (09:39)
[2017-08-28] MEDS: QUEtiapine 100 MG Tablet PO (09:39)
[2017-08-28] MEDS: levoFLOXacin IV 750 MG/150 ML BAG 100 MG IV (10:52)
--- NOTE | 2017-08-28 11:28 | PCM.DC.SUM ---
Discharge Date and Diagnosis - Problem List Patient Problems: Active and Suspected Problems Chest pain (Acute) Date of Admission: 08/25/17 Date of Discharge: 08/28/17 - Primary Discharge Diagnosis Active and Suspected Problems Chest pain (Acute) - Secondary Discharge Diagnosis Chronic Problems Schizophrenia (Chronic) Mental retardation (Chronic) Celiac disease (Chronic) Bacterial pneumonia (Chronic) Bipolar disorder (Chronic) Hospital Course and Treatment Imaging Results: Microbiology Past 72 Hours 08/25/17 18:50 Urine Culture - Final Urine, Random Klebsiella pneumoniae sp pneum 08/25/17 16:45 Blood Culture - Preliminary Blood Culture (Wb) - Left Hand No growth in 48 hours. 08/25/17 15:56 Blood Culture - Preliminary Blood Culture (Wb) - Left Forearm No growth in 48 hours. 08/26/17 11:00 Respiratory Panel (PCR) - Final Mucosa - Nose 08/25/17 18:50 Streptococcus pneumoniae Antigen (M - Final Urine, Clean Catch 08/25/17 18:50 Legionella Antigen - Final Urine, Clean Catch Laboratory Tests Past 24 Hrs 08/28/17 08/28/17 06:22 06:22 WBC 7.3 RBC 4.12 L Hgb 12.3 L Hct 36.8 L MCV 89.3 MCH 29.9 MCHC 33.4 RDW 14.4 RDW Differential 46.6 H Plt Count 172 MPV 9.5 Immature Gran % (Auto) 0.800 Neut % (Auto) 39.5 L Lymph % (Auto) 36.2 [place] % (Auto) 11.7 H Eos % (Auto) 11.4 H Baso % (Auto) 0.4 Absolute Neuts (auto) 2.9 Absolute Lymphs (auto) 2.64 Total Counted Not Reportable Sodium 142 Potassium 4.2 Chloride 106 Carbon Dioxide 28.0 Anion Gap 8 BUN 9 Creatinine 0.77 Estim Creat Clear Calc 90.08 Est GFR (MDRD) Af Amer 139 Est GFR (MDRD) Non-Af 115 BUN/Creatinine Ratio 11.7 Glucose 88 Calcium 9.1 Diagnostic Data Chest X-Ray 08/25/17 15:25 IMPRESSION: Lower lung infiltrates or atelectasis. Electronically Signed: Nik Khan MD at 16:05 EDT , Service support , Chest CT 08/25/17 16:57 IMPRESSION: Lower lung edema or infiltrates. Electronically Signed: Nik Khan MD at 17:56 EDT , Service support , Operations: None Procedures: None Summary of Care Provided: Patient is a 46-year-old male with a history of schizophrenia, mental retardation, hypothyroidism, hype bipolar disorder and celiac disease. He was admitted on 08/25/2017 with complaint of chest pain. He was a very poor historian and history was taken from his family. Not much information could be given about chest pain. Vitals in the ED with temperature of 100.4 with pulse rate of 102 respiratory rate of 24 and saturating of 94% on room air with blood pressure of [id number] for recheck of 111/77. UA showed elevated white cell count and 2+ bacteria and positive nitrites. Lactic acid was 2.6 and troponin was normal. Chest x-ray done showed lower lung linear and groundglass opacities in the CT of the chest showed groundglass opacities and linear opacities greater on the left than the right. He has been managed for sepsis due to bilateral pneumonia and UTI. He was started on IV Rocephin and azithromycin; azithromycin was subsequently dced and levofloxacin was added. Subsequently temperature went up to 103.1 and blood pressure dropped to 84/52 which responded to IV fluids. Urine antigens for Legionella and strep were negative. He was put on IV Rocephin. Blood pressure normalized with IV fluids and IV fluids were subsequently stopped. Urine culture Klebsiella. Urine for strep pneumonia antigen was negative and urine for Legionella antigen was also negative. Blood cultures were negative respiratory panel was also negative. Patient remained stable and was discharged home on 08/28/2017 on p.o. amoxicillin clavulanic acid for 5 day course. Patient seen and examined prior to discharge. He really had no complaints but was unable to do complains of review of exam as patient just kept mumbling really could not answer questions. Vitals and labs were reviewed and were pretty normal. On examination. General: Alert, Cooperative, No apparent distress HEENT: Atraumatic, PERRLA, EOMI, Normocephalic Oral: Moist Mucosa Neck: Supple, No JVD, Negative Carotid Bruits Lungs: - - decreased breath sounds bibasally. Cardiovascular: Regular rate, Regular Rhythm, Normal S1, Normal S2, No murmurs Abdomen: Bowel Sounds Present, Soft, Non Tender, Non-Distended, No Hepato-splenomegaly Extremities: No clubbing, No cyanosis, No edema, Capillary Refill Less than 3 Seconds Skin: No rashes, No breakdown Musculoskeletal: No Tenderness to Palpation of Joints or Extremities Lymphatic: No Cervical, Supraclavicular, or Inguinal Adenopathy Neurological: Cranial nerves II-XII grossly intact Plan as stated above. He is to follow-up with his PCP in 1 week. [] Discharge Diet: No Restrictions Discharge Activity: Return to Normal Activity Weight Bearing Status: Weight bearing as tolerated Call your doctor if you observe: Fever of 101 or Higher, Shortness of breath Home Medications: Medications to take at Discharge Acetaminophen [Tylenol] 650 mg PO Q8H PRN PRN 08/25/17 Benztropine [Cogentin] 2 mg PO QHS 08/25/17 Diclofenac [Voltaren] 75 mg PO BIDCM 08/25/17 Divalproex Sodium [Depakote ER] 250 mg PO TID 08/25/17 Levothyroxine Sodium [Synthroid] 50 mcg PO DAILY 08/25/17 Quetiapine Fumarate [Seroquel] 100 mg PO DAILY 08/25/17 Quetiapine Fumarate [Seroquel] 300 tab PO QHS 08/25/17 Valproic Acid 1,250 mg PO QHS 08/25/17 Valproic Acid 250 mg PO LUNCH 08/25/17 Valproic Acid 750 mg PO DAILY 08/25/17 Amoxicillin/Potassium Clav [Augmentin 875-125 Tablet] 1 ea PO BID #10 tab 08/28/17 Following Prescrptions Were Given to Patient: Amoxicillin/Potassium Clav [Augmentin 875-125 Tablet] 1 ea PO BID #10 tab Primary Care Physician: Bry Duran MD [Primary Care Provider] - Please follow up with your Primary Care Physician in: one week Disposition: Home Minutes spent on discharge:: 35 Patient Condition:: Stable Medical Necessity - Tobacco Use Smoking Status: Never smoker Tobacco Use: Non-smoker Meaningful Use Info Meaningful Use Diagnoses (Choose all that apply): None applicable Code Visit Inpatient E&M: 35448 Disch Hosp
--- NOTE | 2017-08-28 11:34 | PCM.DC ---
- Discharge Diagnoses Current Active Problems: Current Active and Chronic Problems Chest pain (Acute) You will use the following diet at home:: No restrictions Your food should be the consistency of: Regular Your liquids should be the consistency of: Regular/Thin Discharge Activity: Return to Normal Activity Weight Bearing Status: Weight bearing as tolerated Call your doctor if you observe: Fever of 101 or Higher, Shortness of breath, Chest pain Allergies/Adverse Reactions: Allergies gluten Adverse Reaction (Verified 08/25/17 15:11) Other Medications to take at Discharge Acetaminophen [Tylenol] 650 mg PO Q8H PRN PRN 08/25/17 Benztropine [Cogentin] 2 mg PO QHS 08/25/17 Diclofenac [Voltaren] 75 mg PO BIDCM 08/25/17 Divalproex Sodium [Depakote ER] 250 mg PO TID 08/25/17 Levothyroxine Sodium [Synthroid] 50 mcg PO DAILY 08/25/17 Quetiapine Fumarate [Seroquel] 100 mg PO DAILY 08/25/17 Quetiapine Fumarate [Seroquel] 300 tab PO QHS 08/25/17 Valproic Acid 1,250 mg PO QHS 08/25/17 Valproic Acid 250 mg PO LUNCH 08/25/17 Valproic Acid 750 mg PO DAILY 08/25/17 Amoxicillin/Potassium Clav [Augmentin 875-125 Tablet] 1 ea PO BID #10 tab 08/28/17 The following prescriptions were given: Amoxicillin/Potassium Clav [Augmentin 875-125 Tablet] 1 ea PO BID #10 tab Primary Care Physician: Bry Duran MD [Primary Care Provider] - Please follow up with your Primary Care Physician in: one week Test Results: Test results from this visit will be discussed in further detail at your follow-up appointment, if applicable. Proposed Discharge Date: 08/28/17
--- NOTE | 2017-08-28 11:40 | DCINST_ITS ---
- Discharge Diagnoses Current Active Problems: Current Active and Chronic Problems Chest pain (Acute) You will use the following diet at home:: No restrictions Your food should be the consistency of: Regular Your liquids should be the consistency of: Regular/Thin Discharge Activity: Return to Normal Activity Weight Bearing Status: Weight bearing as tolerated Call your doctor if you observe: Fever of 101 or Higher, Shortness of breath, Chest pain Allergies/Adverse Reactions: Allergies gluten Adverse Reaction (Verified 08/25/17 15:11) Other Medications to take at Discharge Acetaminophen [Tylenol] 650 mg PO Q8H PRN PRN 08/25/17 Benztropine [Cogentin] 2 mg PO QHS 08/25/17 Diclofenac [Voltaren] 75 mg PO BIDCM 08/25/17 Divalproex Sodium [Depakote ER] 250 mg PO TID 08/25/17 Levothyroxine Sodium [Synthroid] 50 mcg PO DAILY 08/25/17 Quetiapine Fumarate [Seroquel] 100 mg PO DAILY 08/25/17 Quetiapine Fumarate [Seroquel] 300 tab PO QHS 08/25/17 Valproic Acid 1,250 mg PO QHS 08/25/17 Valproic Acid 250 mg PO LUNCH 08/25/17 Valproic Acid 750 mg PO DAILY 08/25/17 Amoxicillin/Potassium Clav [Augmentin 875-125 Tablet] 1 ea PO BID #10 tab The following prescriptions were given: Amoxicillin/Potassium Clav [Augmentin 875-125 Tablet] 1 ea PO BID #10 tab Primary Care Physician: Bry Duran MD [Primary Care Provider] - Please follow up with your Primary Care Physician in: one week Test Results: Test results from this visit will be discussed in further detail at your follow- up appointment, if applicable. Proposed Discharge Date: 08/28/17
== END 2017-08-28 18:53 | disposition home or self-care (01) | DRG 416 ==
LOC: ED 16:37 → PCU 18:28
PROVIDERS: Hospitalist; Internal Medicine; Admitting Provider Internal Medicine; Emergency Provider Emergency Medicine; Family Provider Family Medicine; PCP Family Medicine; Visit Provider Student in an Organized Health Care Education/Training Program
DX: A41.9 Sepsis, unspecified organism (principal); J15.9 Unspecified bacterial pneumonia; N30.00 Acute cystitis without hematuria; F20.9 Schizophrenia, unspecified; R65.20 Severe sepsis without septic shock; B96.89 Other specified bacterial agents as the cause of diseases classified elsewhere; G31.84 Mild cognitive impairment of uncertain or unknown etiology; F79 Unspecified intellectual disabilities; E03.9 Hypothyroidism, unspecified; F31.9 Bipolar disorder, unspecified; K90.0 Celiac disease; D64.9 Anemia, unspecified; Z79.899 Other long term (current) drug therapy
CPT/HCPCS: 36415; 71045; 71250; 80048; 80076; 80164; 81001; 83605; 83690; 83735; 84100; 84443; 84484; 85025; 85379; 87040; 87077; 87086; 87088; 87186; 87449; 87633; 93005; 94640; 99285; J7030; A4216

== ENCOUNTER 2018-02-14 14:54 | Emergency (ER) | payer MEDICAID, SELFPAY ==
[2018-02-14 14:55] VITALS: BP 118/61; PULSE 99; RESP 16; TEMP 37.6; O2SAT 95; BMI 21.4
[2018-02-14 15:06] VITALS: BP 118/61; PULSE 99; RESP 15; TEMP 37.6; O2SAT 95
[2018-02-14 15:26] VITALS: PULSE 96; RESP 20
[2018-02-14] MEDS: Ipratropium/Albuterol Sulfate 3 ML AMPUL.NEB INHALATION (15:26)
--- NOTE | 2018-02-14 15:38 | RAD_ITS ---
STUDY: X-RAY CHEST REASON FOR EXAM: Male, 47 years old. Fever. TECHNIQUE: PA and lateral views of the chest. COMPARISON: Comparison is made with prior study dated August 25, 2017. FINDINGS: EKG electrodes are seen. Increased markings are seen in the posterior medial segment of the left lower lobe suggestive of a focal infiltrate. There is no demonstrated pleural abnormality. Normal size heart. Normal mediastinum and loyda. Normal visualized pulmonary arteries. Normal visualized aortic arch and descending thoracic aorta. Normal visualized thoracic spine. Normal visualized ribs, clavicles, and shoulders. There is no demonstrated abnormality of the visualized soft tissue structures of the upper abdomen. RAD/Chest PA and Lateral IMPRESSION: Findings suggestive of focal left lower lobe infiltrate. Electronically Signed: Jose Rosales MD at 15:55 EST Tel [phone], Service support ,
[2018-02-14 15:41] LABS: Absolute Neutrophil Count 11.4 X10^3/uL (2.0-7.7); Basophil# 0.02 X10^3/uL; Basophil% 0.2 % (0-1); Eosinophil# 0.09 X10^3/uL; Eosinophils% 0.7 % (0-5); Hematocrit 36.2 % (40-54); Hemoglobin 11.8 g/dl (13.0-16.5); Mean Corp Hgb Conc 32.6 g/gl (32-36); Mean Corpuscular Hgb 29.4 pg (27.0-32.0); Mean Platelet Vol. 8.4 fl (6.2-12.0); Monocyte# 0.95 X10^3/uL; Monocyte% 7.1 % (0-10); Neutrophil # 11.41 X10^3/uL (2.7-7.7); Neutrophil % 85.7 % (47-70); Platelet Count 275 K/mm3 (150-450); RBC Distribution Width CV 14.5 % (11.6-14.6); Red Blood Count 4.02 M/mm3 (4.6-6.2); White Blood Count 13.3 K/mm3 (4.4-11.0)
[2018-02-14 15:49] LABS: Anion Gap 8 (5-15); BUN 17 mg/dL (7-18); BUN/Creat Ratio 18.1 RATIO (10-20); Calcium,Total 8.8 mg/dL (8.5-10.1); Chloride 107 mmol/L (98-107); Creatinine, Serum 0.94 mg/dL (0.70-1.30); EST Glomerular Filtration Rate 91 mL/min (>60); Est Glom Filt Rate - Afr Amer 110 mL/min (>60); Estimated Creatinine Clearance 74.61 ml/min; Glucose 134 mg/dL (74-106); Potassium 3.9 mmol/L (3.5-5.1); Sodium Level 140 mmol/L (136-145)
[2018-02-14 15:51] LABS: POSITIVE COUNT NO; POSITIVE DIFFERENTIAL NO; POSITIVE MORPHOLOGY NO
[2018-02-14 16:13] VITALS: BP 104/79; PULSE 82; RESP 15; TEMP 37.8; O2SAT 95
--- NOTE | 2018-02-14 16:25 | ED.VISSUMM ---
- ER Visit Summary Date of Service: 02/14/18 Chief Complaint: Fever History of Present Illness: The patient is a 47 M who presents with a fever and headache that was noticed today. Caregiver states that the patient had a fever of 102 earlier today. Patient went to an urgent care and was referred to the emergency department because he had abnormal lung sounds. Patient is currently being treated for urinary tract infection with Cipro. Patient states he is having pain over the right lateral chest area. Patient states pain is worse with movement. Patient admits to some mild shortness of breath. Patient also admits to headache and neck pain. Patient has a history of MRDD. Physical Examination: Vital signs are stable. Patient is afebrile. Patient is in no acute distress. Oral mucosa is pink and moist. Neck is supple. Trachea is midline. There is no JVD noted. Heart was regular rate and rhythm. Lungs showed bibasilar rales. There is good respiratory effort noted. There are no retractions. Abdomen is soft and nontender. Cranial nerves II through XII are intact. There are no focal motor or sensory deficits noted. The remaining physical exam is within normal limits. Test Results: PA and lateral chest x-ray was obtained. There is a left basilar infiltrate. CBC shows a mild leukocytosis of 13.3. Basic metabolic profile is within normal limits. Emergency Department Course and Treatment: Patient was given a dose of Levaquin here. Patient was given a prescription for Levaquin to take instead of Cipro. She was instructed to follow-up with his primary care physician in 5-7 days. Patient and caregiver understood and were agreeable with the plan. All questions were answered. Disposition: Discharge home Impression: Pneumonia This note was generated with [employer] dictation software. It may contain incorrect words, spelling, and punctuation that were not noted in review of the chart prior to signing ED Disposition - Plan for ED Patient: Disposition: Home or Assisted Living Chief Complaint: Fever Diagnosis: Pneumonia Instructions: ED Pneumonia Adult Prescriptions: Levofloxacin [Levaquin] 750 mg PO DAILY #7 tab Referrals: Bry Duran MD [Primary Care Provider] -
[2018-02-14] MEDS: levoFLOXacin 750 MG Tablet PO (16:47)
[2018-02-14 16:51] VITALS: BP 102/68; PULSE 84; RESP 18; O2SAT 99
== END 2018-02-14 16:51 | disposition home or self-care (01) ==
PROVIDERS: Emergency Provider Emergency Medicine; Family Provider Family Medicine; PCP Family Medicine
DX: J18.9 Pneumonia, unspecified organism (principal); F79 Unspecified intellectual disabilities; F31.9 Bipolar disorder, unspecified; E03.9 Hypothyroidism, unspecified; K90.0 Celiac disease; Z79.899 Other long term (current) drug therapy
CPT/HCPCS: 71046; 80048; 85025; 94640; 99285; A4216

== ENCOUNTER → 2018-03-02 12:35 | Outpatient (CLI) | payer MEDICAID, SELFPAY ==
[2018-02-14 14:55] VITALS: BMI 21.4
--- NOTE | 2018-03-02 12:41 | RAD_ITS ---
STUDY: SWALLOWING STUDY REASON FOR EXAM: Male, 47 years old. Elevated risk for aspiration. TECHNIQUE: The examination was performed with Speech Pathology in attendance. Under fluoroscopic observation, the patient ingested thin barium, thick barium, barium pudding, and barium coated cracker. FLUOROSCOPY TIME: 2:39 minutes/seconds. 2297 fluoroscopic images were obtained. RADIOLOGIST INVOLVEMENT: Radiologist was present and providing direct supervision. COMPARISON: None. FINDINGS: The following was observed during swallowing of the various mixtures of barium: Thin Barium: Silent aspiration with thin liquids. Thick Barium: Silent aspiration with nectar thickened liquids and honey thickened liquids. Barium Pudding: There was no evidence of aspiration or laryngeal penetration. Barium Coated Cracker: There was no evidence of aspiration or laryngeal penetration. RAD/Swallowing Function w/Video IMPRESSION: Silent aspiration with thin liquids, nectar thickened liquids and honey thickened liquids. The swallow study findings were discussed with the patient by the speech pathologist at the conclusion of the examination. Please see speech pathology report for more information and recommendations. Electronically Signed: Jose Rosales MD at 15:49 EST , Service support ,
--- NOTE | 2018-03-02 13:00 | SP.MBSS_ITS ---
PRIMARY / SECONDARY DIAGNOSIS: Bacterial Pneumonia; at increased risk for aspiration REFERRING PHYSICIAN: Jeri Farley CNP; Dr. Duran CURRENT DIET: regular textures/thin liquids DENTITION: has poorly fitting upper/lower dentures; did not have dentures for this examination MENTAL STATUS: able to sufficiently follow commands for participation in MBS RESPIRATORY STATUS: oxygenating on room air PREVIOUS MODIFIED BARIUM SWALLOW STUDY: n/a REASON FOR REFERRAL: recurrently pneumonia 2x w/in the past 12 months; pocketing of food MEDICAL HISTORY: mental retardation, Bipolar 1 Disorder, hypothyroidism, celiac disease, recurrent UTIs STUDY FINDINGS: Patient participated in a Modified Barium Swallow (MBS) study on 03/02/2018. Dr. Rosales was the radiologist present for this evaluation. This study was recorded in the lateral view and images were sent to PACs for storage. The following consistencies were presented to this patient for analysis of oropharyngeal swallow function: thin liquid, nectar thickened liquid, honey thickened liquid, pudding, and a regular texture bologna mixed w/ barium (cookie not used d/t celiac disease). Results of the MBS are as follows: PENETRATION / ASPIRATION SCALE (CARRANZA): 1 = does not enter airway 2 = enters airway/above vocal folds/ejected 3 = enters airway/above vocal folds/not ejected 4 = enters airway/contacts vocal folds/ejected 5 = enters airway/contacts vocal folds/not ejected 6 = enters airway/below vocal folds/ejected 7 = enters airway/below vocal folds/not ejected despite effort 8 = enters airway/below vocal folds/no effort PENETRATION / ASPIRATION SCALE (SCORE): 1.Thin liquid teaspoon: 2 = enters airway/above vocal folds/ejected 2.Thin liquid teaspoon: 4 = enters airway/contacts vocal folds/ejected 3.Thin liquid cup: 8 = enters airway/below vocal folds/no effort 4.Thin liquid cup chin tuck: could not view 5.Thin liquid cup chin tuck: 8 = enters airway/below vocal folds/no effort 6.Puddin = does not enter airway 7.Bologna mixed w/ barium: 1 = does not enter airway 8.Ronald thickened liquid cup: 8 = enters airway/below vocal folds/no effort 9.Honey thickened liquid cup: 1 = does not enter airway 10.Ronald thickened liquid teaspoon: 1 = does not enter airway 11.Ronald thickened liquid teaspoon: 8 = enters airway/below vocal folds/no effort IMPRESSION ORAL PHASE CHARACTERIZED BY: LABIAL SEAL: escape progressing to mid-chin TONGUE CONTROL DURING BOLUS MANIPULATION: posterior escape of less than half of bolus BOLUS PREPARATION / MASTICATION: slow prolonged chewing/mashing with complete recollection BOLUS TRANSPORT / LINGUAL MOTION: delayed initiation of tongue motion ORAL RESIDUE: residue collection on oral structures PHARYNGEAL PHASE CHARACTERIZED BY: INITIATION OF PHARYNGEAL SWALLOW: bolus head in pyriforms at first hyoid excursion SOFT PALATE ELEVATION: no bolus between soft palate and pharyngeal wall LARYNGEAL ELEVATION: partial superior movement of thyroid cartilage/partial approximation of arytenoids cartilage to epiglottic petiole ANTERIOR HYOID EXCURSION: partial anterior movement EPIGLOTTIC MOVEMENT: complete epiglottic inversion LARYNGEAL VESTIBULE CLOSURE AT HEIGHT OF SWALLOW: incomplete laryngeal vestibule closure with narrow column of air/contrast in laryngeal vestibule PHARYNGEAL STRIPPING WAVE: pharyngeal stripping wave present / complete PHARYNGOESOPHAGEAL SEGMENT OPENING: partial distension and partial duration; partial obstruction of flow TONGUE BASE RETRACTION: narrow column of contrast between tongue base and posterior pharyngeal wall PHARYNGEAL RESIDUE: collection of residue within or on pharyngeal structures ESOPHAGEAL PHASE CHARACTERIZED BY: ESOPHAGEAL BOLUS CLEARANCE IN THE UPRIGHT POSITION: esophageal retention EFFECTS OF TREATMENT STRATEGIES ATTEMPTED: Chin tuck posture = not effective Cued expectoration = not effective Reduced rate of intake (NTL via tsp) = not effective ? INTERPRETATION OF RESULTS: Patient presents with mild oral dysphagia (R13.11) and moderate to severe pharyngeal dysphagia (R13.13). Oral phase is primarily marked by mild mastication inefficiency d/t lack of dentiton at time of examination w/ reduced lingual control resulting in oral residue retention post deglutition. Oral phase swallow onset delay (premature pharyngeal bolus entry) noted. Pharyngeal phase primarily marked by delayed pharyngeal swallow onset timing resulting in suboptimal bolus location upon swallow onset (bolus head in pyriforms) resulting in penetration/aspiration during the swallow. Reduced closure of the airway during deglutition attributed to incomplete reduced laryngeal elevation and anterior hyoid excursion resulting in poor laryngeal vestibule closure/pressure. Aspiration w/ thin and nectar thickened liquids was SILENT. Significantly decreased/weak and ineffective pressure achieved w/ cued cough that was insufficient to eject aspirate from the trachea/laryngeal vestibule. Compensatory strategies (chin tuck, limiting liquid bolus volume via teaspoon) were ineffective to ameliorate aspiration. Esophageal retention of contrast noted w/ cervical osteophyte at C-6 w/ noted accumulation of contrast below osteophyte (? Diverticulum), although this did not impact swallow function. RECOMMENDATIONS: DIET: Mechanical soft textures, honey thickened liquids COMPENSATORY STRATEGIES RECOMMENDED: Reduced bolus volume, reduced rate of intake, seated upright at 90 degrees during PO intake, NEED FOR ADDITIONAL SKILLED SPEECH THERAPY SERVICES TARGETING DYSPAHGIA: Recommend a referral for HOME HEALTH SPEECH THERAPY, as this patient requires intensive skilled speech-language intervention targeting patient/family education re: diet texture/liquid consistency preparation, oropharyngeal strengthening exercises to facilitate improved swallow function/reduced aspiration risk, and education/implementation of the [place] Free Water Protocol (FFWP), as this patient has had recurrent UTIs and would benefit from the ability to consume water. Would consider implementation of the [place] Free Water Protocol (FFWP) following Patient and family education ONLY if the family demonstrated sufficient comprehension and the Patient has an adequate level of supervision at home. ADDITIONAL COMMENTS/RECOMMENDATIONS: Results and recommendations were discussed with the Patient, brother (POA) and nurse who accompanied him to this appointment immediately following MBS completion. Additional time was spent following MBS completion reviewing images w/ POA to facilitate improved comprehension of silent aspiration, the importance of consistent honey thickened liquid use to reduce risks associated w/ recurrent pneumonia and how to properly thicken liquids. Samples were provided to ensure the ability to immediately implement HTL recommendation w/ instruction on where/how to obtain additional thickener. POA verbalized understanding and agreement w/ all education and recommendations provided. IMAGE COUNT: [id number] G-CODES: SWALLOWING [id number] Current Status: CL SWALLOWING G8997 Goal Status: CJ SWALLOWING G8998 Discharge Status: CJ
== END ==
PROVIDERS: Family Provider Family Medicine; PCP Family Medicine
DX: J15.9 Unspecified bacterial pneumonia (principal); Z91.89 Other specified personal risk factors, not elsewhere classified
CPT/HCPCS: 74230; 92611

== ENCOUNTER 2023-01-26 17:05 | Emergency (ER) | payer MEDICAID, SELFPAY ==
[2023-01-26 17:07] VITALS: BP 109/70; PULSE 87; RESP 22; TEMP 36.7; O2SAT 95; BMI 24.8
--- NOTE | 2023-01-26 17:27 | EX.ED.DYSGE1 ---
HPI History of Present Illness Chief Complaint: Mental Status Change Informant: family Onset/Context/Timing Onset: Days Context: Gradual Onset Timing: Continuous Worsened by: Nothing Relieved by: Nothing Narrative Narrative: Patient presents with abnormal behavior that has been getting worse over the past few days. Family states patient is more agitated than usual. Family states that the patient has acted like this in the past when he has had an infection. Family states he has not had an infection for the past several years. Family denies any fevers or chills. Family denies any nausea or vomiting. EMS reported the patient was complaining of some pain with urination. [facility] Medical History (Updated 01/26/23 @ 20:[address] Dm Patino DO) Bipolar disorder Celiac disease Mental retardation Schizophrenia Home Medications acetaminophen 325 mg tablet (Tylenol) 650 mg PO Q8H PRN PRN Pain 08/25/17 [History Last Taken Unknown] benztropine 2 mg tablet 2 mg PO Q MENTAL HEALTH 08/25/17 [History Last Taken 08/24/17] levothyroxine 50 mcg tablet (Synthroid) 50 mcg PO DAILY THYROID 08/25/17 [History Last Taken 08/25/17] quetiapine 100 mg tablet 100 mg PO DAILY MENTAL HEALTH 08/25/17 [History Last Taken 08/25/17] quetiapine 300 mg tablet (Seroquel) 300 tab PO QHS MENTAL HEALTH 08/25/17 [History Last Taken 08/24/17] divalproex 500 mg tablet,delayed release 500 mg PO BID 02/14/18 [History Last Taken Unknown] docusate sodium 100 mg capsule (DOK) 100 mg PO BID 02/14/18 [History Last Taken Unknown] haloperidol decanoate 100 mg/mL intramuscular solution 75 mg IM QMONTH 02/14/18 [History Last Taken Unknown] tamsulosin 0.4 mg capsule 0.4 mg PO DAILY 02/14/18 [History Last Taken Unknown] cephalexin 500 mg capsule 500 mg PO Q6 #20 CAPSULES 01/26/23 [Rx Last Taken Unknown] Allergy/AdvReac Type Severity Reaction Status Date / Time gluten AdvReac Other Verified 02/14/18 14:58 Surgical History no surgical history no surgical history Social History Smoking Status: Never smoker ROS ROS ED Review of Systems ROS Unobtainable: due to mental condition EXAM Physical Exam Const Vital Signs: 01/26/23 17:07 Temperature 98.1 F Temperature Source Temporal Pulse Rate 87 Respiratory Rate 22 H Blood Pressure 109/70 Blood Pressure Mean 83 Pulse Ox 95 Oxygen Delivery Method Room Air Positive well nourished and well developed General Appearance ED: well developed and NAD HEENT Reports moist mucous membranes Neck supple and no JVD Resp normal respiratory effort GI non-distended Palpation: soft Extremity normal to inspection Neuro CN's II-XII intact bilaterally and no sensory deficits noted Motor Exam: strength 5/5 throughout Psych Attitude: agitated MDM MDM MDM Narrative Medical decision making narrative: Differential diagnosis includes urinary tract infection, pneumonia, sepsis, electrolyte abnormality, and schizophrenia. CBC will be obtained to assess for leukocytosis and anemia. Basic metabolic profile will be obtained to assess for electrolyte abnormality and renal function. Urinalysis will be obtained to assess for urinary tract infection and hematuria. Lactate will be obtained to assess for sepsis. Chest x-ray will be obtained to assess for pneumonia. Lab Data Attestation: I reviewed the patient's lab results. Lab results narrative: CBC was reviewed and was within normal limits. Basic metabolic profile was reviewed and was within normal limits. Urine cyst was reviewed. Leukocyte esterase was 100 with positive nitrates. There was 10-25 white blood cells and 2+ bacteria. Serum alcohol level was reviewed and was negative. Urine tox screen was reviewed and was negative. Labs: Laboratory Results - last 24 hr 01/26/23 01/26/23 17:46 17:55 WBC 7.0 RBC 4.45 L Hgb 13.3 Hct 39.2 L MCV 88.1 MCH 29.9 MCHC 33.9 RDW Std Deviation 43.1 RDW Coeff of Jonathon 13.2 Plt Count 270 MPV 8.8 Immature Gran % (Auto) 0.400 Neut % (Auto) 54.5 Lymph % (Auto) 29.8 [place] % (Auto) 12.3 H Eos % (Auto) 2.6 Baso % (Auto) 0.4 Absolute Neuts (auto) 3.8 Absolute Lymphs (auto) 2.08 Nucleated RBC % 0 Sodium 141 Potassium 3.9 Chloride 112 H Carbon Dioxide 25.0 Anion Gap 4 L BUN 24 H Creatinine 0.81 Estim Creat Clear Calc 91.74 Est GFR (MDRD) Af Amer 128 Est GFR (MDRD) Non-Af 106 BUN/Creatinine Ratio 29.6 H Glucose 103 Calcium 9.4 Urine Color Yellow Urine Clarity Sl. Cloudy Urine pH 6.5 Ur Specific [place] 1.020 Urine Protein 15 H Urine Glucose (UA) Normal Urine Ketones 5 H Urine Occult Blood 10 H Urine Nitrite Positive H Urine Bilirubin Negative Urine Urobilinogen Normal Ur Leukocyte Esterase 100 H Urine RBC 0 SEEN Urine WBC 10-25 SEEN Ur Squamous Epith Cells 0 SEEN Urine Bacteria 2+ Urine Mucus 0 SEEN Urine Opiates Screen NEGATIVE Urine Methadone Screen NEGATIVE Ur Barbiturates Screen NEGATIVE Ur Phencyclidine Scrn NEGATIVE Ur Amphetamines Screen NEGATIVE MDMA (Ecstasy) Screen NEGATIVE U Benzodiazepines Scrn NEGATIVE Urine Cocaine Screen NEGATIVE U Cannabinoids Screen NEGATIVE Ur Drug Screen Comment Ethyl Alcohol < 3.0 Radiography Diagnostic Testing: Clinical Impression(s) from Imaging Studies Chest X-Ray 01/26/23 18:12 IMPRESSION: No acute cardiopulmonary disease. Electronically Signed: Nelda Ramirez MD at 18:56 EST , Portable 1 view chest x-ray was obtained. On my independent interpretation, lung khan are clear. There is normal cardiac silhouette. Bony thorax is normal. There is no acute process noted. Radiologist also interpreted the x-ray and agrees. Treatment and Re-Evaluation :: Patient was given a dose of Ativan. Patient is sleeping on reevaluation. Family was advised of the findings. Family is comfortable taking patient home. Patient was given a dose of Keflex here. Patient was given a prescription for Keflex. Family was instructed to follow-up with the patient's primary care physician in 3 to 5 days. Family was instructed return if worse in any way. Family understands and is agreeable with the plan. All questions were answered. Discharge Plan Triage Chief Complaint: Mental Status Change ED Provider: Dm Patino Dx/Rx/DC Orders Clinical Impression: Urinary tract infection, Celiac disease, Schizophrenia Instructions: ED Bladder Infection, Male (Adult) Prescriptions: New cephalexin [cephalexin] 500 mg capsule 500 mg PO Q6 Qty: 20 0RF No Action quetiapine [Seroquel] 300 MG tablet 300 tab PO QHS quetiapine 100 MG tablet 100 mg PO DAILY levothyroxine [Synthroid] 50 MCG tablet 50 mcg PO DAILY benztropine 2 MG tablet 2 mg PO QHS acetaminophen [Tylenol] 325 MG tablet 650 mg PO Q8H PRN PRN (Reason: Pain) divalproex 500 MG tablet,delayed release (DR/EC) 500 mg PO BID Rx Instructions: ONE TAB IN MORNING, TWO TABS AT NIGHTTIME. tamsulosin 0.4 MG capsule 0.4 mg PO DAILY Patient Comments: Take 1 capsule by mouth daily at bedtime. haloperidol decanoate 100 MG/ML solution 75 mg IM QMONTH docusate sodium [DOK] 100 MG capsule 100 mg PO BID Primary Care Provider: Bry Duran Referrals: Bry Duran MD [Primary Care Provider] - 3-5 Days Disposition Disposition: Home, Self Care
[2023-01-26] MEDS: LORazepam 2 MG/ML Syringe IM (17:37)
--- NOTE | 2023-01-26 17:40 | ED.RN ---
Unable to keep patient in bed. pt. constantly attempting to get out of bed and patient is not oriented.
[2023-01-26 17:56] LABS: Absolute Lymphocyte Count 2.08 X10^3/uL (0.83-4.51); Absolute Neutrophil Count 3.8 X10^3/uL (2.0-7.7); Basophil# 0.03 X10^3/uL; Basophil% 0.4 % (0-1); Eosinophil# 0.18 X10^3/uL; Eosinophils% 2.6 % (0-5); Hematocrit 39.2 % (40-54); Hemoglobin 13.3 g/dL (13.0-16.5); Lymphocyte # 2.08 X10^3/ul (0.83-4.51); Lymphocyte % 29.8 % (19-41); Mean Corp Hgb Conc 33.9 g/dL (32-36); Mean Corpuscular Hgb 29.9 pg (27.0-32.0); Mean Corpuscular Volume 88.1 fL (80-94); Mean Platelet Vol. 8.8 fl (6.2-12.0); Monocyte# 0.86 X10^3/uL; Monocyte% 12.3 % (0-10); NRBC Flagged by Analyzer 0 % (0-5); Neutrophil % 54.5 % (47-70); Platelet Count 270 K/mm3 (150-450); RBC Distribution Width CV 13.2 % (11.6-14.6); RBC Distribution Width SD 43.1 fl (35.1-43.9); Red Blood Count 4.45 M/mm3 (4.6-6.2)
[2023-01-26 18:09] LABS: Anion Gap 4 (5-15); BUN 24 mg/dL (7-18); BUN/Creat Ratio 29.6 RATIO (10-20); Calcium,Total 9.4 mg/dL (8.5-10.1); Chloride 112 mmol/L (98-107); Creatinine, Serum 0.81 mg/dL (0.70-1.30); EST Glomerular Filtration Rate 106 mL/min (>60); Est Glom Filt Rate - Afr Amer 128 mL/min (>60); Estimated Creatinine Clearance 91.74 ml/min; Glucose 103 mg/dL (74-106); Potassium 3.9 mmol/L (3.5-5.1); Sodium Level 141 mmol/L (136-145)
--- NOTE | 2023-01-26 18:12 | RAD_ITS ---
STUDY: X-RAY CHEST REASON FOR EXAM: Male, 52 years old. Cough TECHNIQUE: Single AP portable view of the chest. COMPARISON: 02/14/2018. FINDINGS: The lungs are clear and expanded. There is no demonstrated pleural abnormality. Normal size heart. Normal mediastinum and loyda. Normal visualized pulmonary arteries. Normal visualized aortic arch and descending thoracic aorta. Normal visualized thoracic spine. Normal visualized ribs, clavicles, and shoulders. There is no demonstrated abnormality of the visualized soft tissue structures of the upper abdomen. RAD/Chest 1 View (Portable) IMPRESSION: No acute cardiopulmonary disease. Electronically Signed: Nelda Ramirez MD at 18:56 EST ,
[2023-01-26 18:13] LABS: Color, Urine Yellow (Yellow); Glucose, Dipstick Normal (Normal); Ketone-Dipstick 5 mg/dl (Negative); Leukocyte Esterase-Dipstick 100 /ul (Negative); Mucous, Urine 0 SEEN /hpf (<or=2+); Nitrite-Dipstick Positive (Negative); Occult Blood-Urine 10 /ul (Negative); Protein-Dipstick 15 mg/dl (Negative); Red Blood Cells-Urine 0 SEEN /hpf (0-5); Squamous Epithelial Cells - UA 0 SEEN /hpf (0-5); Urine Bilirubin Dipstick Negative (Negative); Urine Clarity Sl. Cloudy (Clear); Urine Urobilinogen Normal (Normal); Urine pH 6.5 (5.0 - 8.0)
[2023-01-26 18:28] LABS: Alcohol, Blood (Medical)-Serum < 3.0 mg/dL
[2023-01-26 18:29] LABS: Amphetamine Urine VISTA NEGATIVE (<1000 ng/mL); Barbiturate Urine VISTA NEGATIVE (< 200 ng/mL); Benzodiazepine Urine VISTA NEGATIVE (< 200 ng/mL); Cocaine Urine VISTA NEGATIVE (< 300 ng/mL); Ecstacy Urine VISTA NEGATIVE (< 500 ng/mL); Methadone Urine VISTA NEGATIVE (< 300 ng/mL); PCP Urine VISTA NEGATIVE (< 25 ng/mL); THC Urine VISTA NEGATIVE (< 50 ng/mL); Vista UDS pH Range 6
[2023-01-26 18:33] LABS: Bacteria 2+ /hpf (None Seen); White Blood Cells 10-25 SEEN /hpf (0-5)
[2023-01-26] MEDS: Cephalexin 500 MG Capsule PO (19:37)
[2023-01-26 20:06] VITALS: RESP 15
[2023-01-26 20:42] VITALS: BP 109/70; PULSE 87; O2SAT 95
== END 2023-01-26 21:24 | disposition home or self-care (01) ==
PROVIDERS: Emergency Provider Emergency Medicine; PCP Family Medicine; Visit Provider Emergency Medicine
DX: N39.0 Urinary tract infection, site not specified (principal); F20.9 Schizophrenia, unspecified; K90.0 Celiac disease; Z79.899 Other long term (current) drug therapy
CPT/HCPCS: 71045; 80048; 80307; 81001; 82077; 85025; 87077; 87086; 87088; 87186; 96372; 99282

== ENCOUNTER 2023-03-11 09:40 | Inpatient (IN) | payer MEDICAID, SELFPAY ==
[2023-03-11] VITALS (8 sets, daily range): BP systolic 110–135; BP diastolic 71–86; PULSE 50–65; RESP 11–21; TEMP 35.6–36.6; O2SAT 98–100; BMI 22.9; BMI 20.2
--- NOTE | 2023-03-11 10:30 | EX.ED.DYSGE1 ---
HPI History of Present Illness Chief Complaint: Hypotension Informant: other Narrative Narrative: Patient presents via EMS secondary to decreased level of consciousness. Information is provided by staff from [facility] which is at bedside. Patient reportedly was picked up by the shuttle this morning and seemed his normal self. He slept on the shuttle on the way to workshop. When getting off the shuttle patient was doubled over and appeared pale. They state that he was staggering. They state that he had a slight bluish tent to his skin. After getting into the workshop he continued to be more lethargic and to the point of being unresponsive at 1 point. EMS gave IV fluids and did state the patient had perked up by the time they arrived at the ED. Staff does state the patient was complaining of shoulder pain and they note that he has a Band-Aid on his upper arm. He does get a monthly Haldol shot and they believe that was given yesterday. He does have a history of frequent UTIs, but states he typically gets more hyper and combative when he gets an infection. [facility] Medical History Bipolar disorder Celiac disease Hypothyroidism Mental retardation Recurrent UTI Schizophrenia Unsteady gait Home Medications acetaminophen 325 mg tablet (Tylenol) 650 mg PO Q8H PRN PRN Pain 08/25/17 [History Last Taken Unknown] benztropine 2 mg tablet 2 mg PO QHS MENTAL HEALTH 08/25/17 [History Last Taken 08/24/17] levothyroxine 50 mcg tablet (Synthroid) 50 mcg PO DAILY THYROID 08/25/17 [History Last Taken 08/25/17] quetiapine 100 mg tablet 100 mg PO DAILY MENTAL HEALTH 08/25/17 [History Last Taken 08/25/17] quetiapine 300 mg tablet (Seroquel) 300 tab PO QHS MENTAL HEALTH 08/25/17 [History Last Taken 08/24/17] divalproex 500 mg tablet,delayed release 500 mg PO BID 02/14/18 [History Last Taken Unknown] docusate sodium 100 mg capsule (DOK) 100 mg PO BID 02/14/18 [History Last Taken Unknown] haloperidol decanoate 100 mg/mL intramuscular solution 75 mg IM QMONTH 02/14/18 [History Last Taken Unknown] tamsulosin 0.4 mg capsule 0.4 mg PO DAILY 02/14/18 [History Last Taken Unknown] Allergy/AdvReac Type Severity Reaction Status Date / Time gluten AdvReac Other Verified 03/11/23 09:49 Social History Smoking Status: Never smoker ROS ROS ED Review of Systems ROS Unobtainable: due to mental condition Constitutional Constitutional ED: Denies chills or fever(s) ENT ENT ED: Denies sore throat Cardiovascular Cardiovascular: Denies chest pain Respiratory/Chest Respiratory/Chest: Denies cough or dyspnea Gastrointestinal Gastrointestinal: Denies abdominal pain Integumentary Denies Abrasions or rash Neurologic Neurologic: Reports weakness EXAM Physical Exam Const Vital Signs: 03/11/23 09:42 03/11/23 09:51 03/11/23 10:41 Temperature 96.0 F L Temperature Source Temporal Pulse Rate 59 L 61 Respiratory Rate 16 16 Respiratory Effort Normal Non-Labored Respiratory Pattern Normal Blood Pressure 121/72 H 110/71 Blood Pressure Mean 88 84 Pulse Ox 100 98 Oxygen Delivery Method Room Air Room Air 03/11/23 11:00 03/11/23 12:25 Temperature Temperature Source Pulse Rate 54 L 57 L Respiratory Rate 16 21 H Respiratory Effort Respiratory Pattern Blood Pressure 126/81 H 129/80 H Blood Pressure Mean 96 96 Pulse Ox 98 Oxygen Delivery Method Room Air Positive well developed General Appearance ED: well developed HEENT Reports moist mucous membranes Eyes PERRL and EOMs intact bilaterally Chest Wall inspection of chest normal and palpation of chest normal Resp normal respiratory effort and clear to auscultation bilaterally Cardio regular rate and regular rhythm GI non-tender Auscultation: hypoactive bowel sounds Palpation: soft Extremity normal to inspection Neuro Neuro Narrative: Patient alert to voice. Moving all 4 extremities. Limited verbal responses. Skin no rashes or lesions noted MDM MDM MDM Narrative Medical decision making narrative: Patient placed on classroom monitor. IV line initiated. EKG obtained to evaluate for cardiac arrhythmia/ischemia. Labwork obtained to evaluate for leukocytosis, anemia, and electrolyte derangement. Urinalysis obtained to evaluate for infection/hematuria. Chest x-ray obtained to evaluate for acute lung pathology, cardiac size, or mediastinal abnormality. Swab for COVID, influenza, RSV will be obtained. History & Record Review Discussion w/independent historian: EMS personnel, Patient, Family and Other Additional record(s) reviewed:: Prior labs Lab Data Attestation: I reviewed the patient's lab results. Labs: Laboratory Results - last 24 hr 03/11/23 03/11/23 10:40 11:00 WBC 6.4 RBC 4.25 L Hgb 12.4 L Hct 38.2 L MCV 89.9 MCH 29.2 MCHC 32.5 RDW Std Deviation 45.8 H RDW Coeff of Jonathon 14.1 Plt Count 309 MPV 8.6 Immature Gran % (Auto) 1.100 H Neut % (Auto) 42.4 L Lymph % (Auto) 41.5 H [place] % (Auto) 9.9 Eos % (Auto) 4.5 Baso % (Auto) 0.6 Absolute Neuts (auto) 2.7 Absolute Lymphs (auto) 2.65 Nucleated RBC % 0 D-Dimer Quant (PE/DVT) 0.58 H* Sodium 142 Potassium 3.8 Chloride 111 H Carbon Dioxide 28.0 Anion Gap 3 L BUN 16 Creatinine 0.93 Estim Creat Clear Calc 79.91 Est GFR (MDRD) Af Amer 109 Est GFR (MDRD) Non-Af 90 BUN/Creatinine Ratio 17.2 Glucose 84 Calcium 9.3 Total Bilirubin 0.40 Direct Bilirubin 0.11 AST 23 ALT 50 Alkaline Phosphatase 74 Troponin I High Sens < 3 L Total Protein 7.7 Albumin 3.2 Globulin 4.5 H Urine Color Yellow Urine Clarity Sl. Cloudy Urine pH 6.0 Ur Specific [place] 1.015 Urine Protein 15 H Urine Glucose (UA) Normal Urine Ketones 5 H Urine Occult Blood 10 H Urine Nitrite Positive H Urine Bilirubin Negative Urine Urobilinogen 1 H Ur Leukocyte Esterase 500 H Urine RBC 0-5 SEEN Urine WBC 25-50 SEEN Ur Squamous Epith Cells 0-5 SEEN Urine Bacteria 2+ Urine Mucus 0 SEEN Radiography Chest X-Ray - ED: 1 View, Read by ED Physician and No Infiltrates Diagnostic Testing: Clinical Impression(s) from Imaging Studies Chest X-Ray 03/11/23 11:20 IMPRESSION: Normal x-ray examination of the chest. Electronically Signed: Jose Rosales MD at 12:00 EST , Chest CTA 03/11/23 11:30 IMPRESSION: Limited examination due to patient motion artifact. No evidence of pulmonary embolism. Findings suggestive of mild atelectasis at the lung bases. Electronically Signed: Jose Rosales MD at 12:07 EST , EKG Initial EKG: Attestation: I personally reviewed and interpreted this EKG as follows: Interpretation: Sinus Bradycardia (Sinus bradycardia 54 bpm with no acute ischemia.) Treatment and Re-Evaluation :: CBC was normal white count at 6.4 with normal differential. Hemoglobin is 12.4. Chemistry studies unremarkable. Glucose is 84. LFTs unremarkable. Troponin is less than 3. Urinalysis does reveal evidence of UTI with positive nitrites, 25-50 white cells, and 2+ bacteria. D-dimer is slightly elevated at 0.58. Portable chest x-ray per my interpretation reveals no acute findings. Radiology interpretation is reviewed and agrees. CTA of the chest was obtained given the elevated D-dimer. No obvious pulmonary embolism noted. Patient is given a dose of IV Rocephin for UTI and urine culture is sent. Patient continues to be rather sleepy. Parents have now arrived at bedside and states they think he may have taken a double dose of his medications. I am also told that the patient went a week without his medications, but had them refilled a day or 2 ago and is now back on his regular schedule. Discharge Plan Triage Chief Complaint: Hypotension Other Complaint: General Illness ED Provider: Jennifer Klein Dx/Rx/DC Orders Clinical Impression: UTI (urinary tract infection), Weakness Prescriptions: No Action quetiapine [Seroquel] 300 MG tablet 300 tab PO QHS quetiapine 100 MG tablet 100 mg PO DAILY levothyroxine [Synthroid] 50 MCG tablet 50 mcg PO DAILY benztropine 2 MG tablet 2 mg PO QHS acetaminophen [Tylenol] 325 MG tablet 650 mg PO Q8H PRN PRN (Reason: Pain) divalproex 500 MG tablet,delayed release (DR/EC) 500 mg PO BID Rx Instructions: ONE TAB IN MORNING, TWO TABS AT NIGHTTIME. tamsulosin 0.4 MG capsule 0.4 mg PO DAILY Patient Comments: Take 1 capsule by mouth daily at bedtime. haloperidol decanoate 100 MG/ML solution 75 mg IM QMONTH docusate sodium [DOK] 100 MG capsule 100 mg PO BID Primary Care Provider: Bry Duran Referrals: Bry Duran MD [Primary Care Provider] - Disposition Disposition: Acute Care Hospital [facility]
[2023-03-11 10:50] LABS: Absolute Lymphocyte Count 2.65 X10^3/uL (0.83-4.51); Absolute Neutrophil Count 2.7 X10^3/uL (2.0-7.7); Basophil# 0.04 X10^3/uL; Basophil% 0.6 % (0-1); Eosinophil# 0.29 X10^3/uL; Eosinophils% 4.5 % (0-5); Hematocrit 38.2 % (40-54); Hemoglobin 12.4 g/dL (13.0-16.5); Lymphocyte # 2.65 X10^3/ul (0.83-4.51); Lymphocyte % 41.5 % (19-41); Mean Corp Hgb Conc 32.5 g/dL (32-36); Mean Corpuscular Hgb 29.2 pg (27.0-32.0); Mean Corpuscular Volume 89.9 fL (80-94); Mean Platelet Vol. 8.6 fl (6.2-12.0); Monocyte# 0.63 X10^3/uL; Monocyte% 9.9 % (0-10); NRBC Flagged by Analyzer 0 % (0-5); Neutrophil # 2.71 X10^3/uL (2.7-7.7); Neutrophil % 42.4 % (47-70); Platelet Count 309 K/mm3 (150-450); RBC Distribution Width CV 14.1 % (11.6-14.6); RBC Distribution Width SD 45.8 fl (35.1-43.9); Red Blood Count 4.25 M/mm3 (4.6-6.2); White Blood Count 6.4 K/mm3 (4.4-11.0)
[2023-03-11 11:05] LABS: Mucous, Urine 0 SEEN /hpf (<or=2+)
[2023-03-11 11:05] LABS: AST(SGOT) 23 U/L (15-37); Alanine Aminotransfer ALT/SGPT 50 U/L (16-61); Albumin, Serum 3.2 g/dL (3.2-5.0); Alkaline Phosphatase 74 U/L (45-117); Anion Gap 3 (5-15); BUN 16 mg/dL (7-18); BUN/Creat Ratio 17.2 RATIO (10-20); Bilirubin, Direct 0.11 mg/dL (0.00-0.30); Calcium,Total 9.3 mg/dL (8.5-10.1); Chloride 111 mmol/L (98-107); Creatinine, Serum 0.93 mg/dL (0.70-1.30); EST Glomerular Filtration Rate 90 mL/min (>60); Est Glom Filt Rate - Afr Amer 109 mL/min (>60); Estimated Creatinine Clearance 79.91 ml/min; Globulin 4.5 g/dL (2.2-4.2); Glucose 84 mg/dL (74-106); Potassium 3.8 mmol/L (3.5-5.1); Protein, Total 7.7 g/dL (6.4-8.2); Sodium Level 142 mmol/L (136-145); Troponin-I HS < 3 pg/mL (3.0-78.0)
[2023-03-11] MEDS: 0.9% Normal Saline (1000mL) 1,000 ML 150 ML IV ×3 (11:06→23:15)
--- NOTE | 2023-03-11 11:20 | RAD_ITS ---
STUDY: X-RAY CHEST REASON FOR EXAM: Male, 52 years old. sob TECHNIQUE: Single AP portable view of the chest. COMPARISON: Comparison is made with prior study dated October 27, 2022. FINDINGS: EKG electrodes are seen. The lungs are clear and expanded. There is no demonstrated pleural abnormality. Normal size heart. Normal mediastinum and loyda. Normal visualized pulmonary arteries. Normal visualized aortic arch and descending thoracic aorta. Normal visualized thoracic spine. Normal visualized ribs, clavicles, and shoulders. There is no demonstrated abnormality of the visualized soft tissue structures of the upper abdomen. RAD/Chest 1 View (Portable) IMPRESSION: Normal x-ray examination of the chest. Electronically Signed: Jose Rosales MD at 12:00 EST ,
[2023-03-11 11:25] LABS: Color, Urine Yellow (Yellow); Glucose, Dipstick Normal (Normal); Ketone-Dipstick 5 mg/dl (Negative); Leukocyte Esterase-Dipstick 500 /ul (Negative); Nitrite-Dipstick Positive (Negative); Occult Blood-Urine 10 /ul (Negative); Protein-Dipstick 15 mg/dl (Negative); Specific Gravity, Urine 1.015 (1.002-1.030); Urine Bilirubin Dipstick Negative (Negative); Urine Clarity Sl. Cloudy (Clear); Urine Urobilinogen 1 mg/dl (Normal)
[2023-03-11 11:27] LABS: D-Dimer Quantitative (DVT/PE) 0.58 FEU/ug/m (0.27-0.49)
--- NOTE | 2023-03-11 11:30 | CT_ITS ---
STUDY: CTA CHEST REASON FOR EXAM: Male, 52 years old. Sob, elevated d-dimer RADIATION DOSAGE (If Supplied By Facility): CTDIvol = ( 8.86 ) mGy, DLP = ( 212.76 ) mGycm TECHNIQUE: The examination was performed with the intravenous administration of IV 75mL [id number]. Post-processing of the angiographic images was performed, with multiplanar reformation and 3D reconstruction. Individualized dose optimization techniques were used for this CT. COMPARISON: None. FINDINGS: Limited study due to patient motion artifact. Normal enhancement of the main pulmonary artery and right and left pulmonary arteries. Normal enhancement of the bilateral peripheral pulmonary arteries. There is no demonstrated pulmonary embolism. There is a mild degree of atherosclerotic calcification of the aortic arch with tortuosity. There is no demonstrated aortic dissection. Normal heart and pericardium. Normal mediastinum. Normal hilar regions. Normal visualized trachea and bronchi. The lungs are well expanded. Mild increased markings at the lung bases suggestive of atelectasis. Normal pleura. Normal chest wall structures. Normal osseous structures. Normal visualized upper abdomen. CT/CTA Chest W/WO Contrast IMPRESSION: Limited examination due to patient motion artifact. No evidence of pulmonary embolism. Findings suggestive of mild atelectasis at the lung bases. Electronically Signed: Jose Rosales MD at 12:07 EST ,
[2023-03-11 11:52] LABS: Bacteria 2+ /hpf (None Seen); Red Blood Cells-Urine 0-5 SEEN /hpf (0-5); White Blood Cells 25-50 SEEN /hpf (0-5)
[2023-03-11 11:53] LABS: Squamous Epithelial Cells - UA 0-5 SEEN /hpf (0-5)
[2023-03-11] MEDS: Ceftriaxone 1 GM/50 ML BAG IV (12:21)
--- OUTSIDE RECORDS SUMMARY | 2023-03-11 13:20 | XMS RPT_ITS | CCD ---
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 Laborer Name Role Phone Vini Pradhan MD Primary Care Provider Asim Brown Attending Unavailable Asim Brown Referring Unavailable VINI PRADHAN Primary Care Unavailable GRACE BHATT Attending Unavailable AILYN GARCÍA Referring VINI Kim Primary Care Unavailable VINI PRADHAN Primary Care Unavailable KASSIDY JANG Attending Unavailable VINI PRADHAN Primary Care Unavailable KASSIDY JANG Attending Unavailable VINI PRADHAN Primary Care Unavailable JUAN NGUYEN Referring Unavailable VINI PRADHAN Primary Care Unavailable JUAN NGUYEN Attending Unavailable Allergies Allergy Classification Reported Allergen(s) Allergy Type Date of Onset Reaction(s) Facility (12 sources) Wheat gluten extract; Translations: [GLUTEN] Drug Allergy 11-05-2010 Other: See Comments [facility] Medications Completed/Discontinued Medications Medication Drug Class(es) Dates Sig (Normalized) Sig (Original) 8 hr acetaminophen 650 mg extended release oral tablet (11 sources) Start: 11-05-2010 take 1 tablet by mouth every eight hours as needed acetaminophen 650 mg CR tablet Take 1 tablet by mouth every 8 hours as needed. 0 11/05/2010 Active Problems Active Problems Problem Classification Problem Date Documented Da te Episodic/Chronic Developmental disorders (15 sources) Intellectual disability; Translations: [Unspecified intellectual disabilities] Onset: 11-06-2010 08-01-2018 Chronic Diabetes mellitus without complication (2 sources) Increased glucose level; Translations: [Other abnormal glucose] Onset: 12-13-2022 Episodic Disorders of lipid metabolism (1 source) Mixed hyperlipidemia; Translations: [Mixed hyperlipidemia] Onset: 12-13-2022 Chronic Hyperplasia of prostate (2 sources) Benign prostatic hyperplasia; Translations: [Benign prostatic hyperplasia without lower urinary tract symptoms] Chronic Mood disorders (15 sources) Bipolar I disorder; Translations: [Bipolar disorder, unspecified] Onset: 11-06-2010 11-06-2010 Chronic Other aftercare (1 source) Encounter for follow-up examination after completed treatment for conditions other than malignant neoplasm; Translations: [Hospital discharge follow-up] Onset: 02-16-2023 Episodic Other aftercare (1 source) Other director long term care (current) drug therapy; Translations: [Encounter for long-term (current) drug use] Onset: 12-13-2022 Episodic Other gastrointestinal disorders (11 sources) Celiac disease; Translations: [Celiac disease] Onset: 11-06-2010 11-06-2010 Chronic Other male genital disorders (2 sources) H/O: male genital disorder; Translations: [Personal history of other diseases of male genital organs] Episodic Other nervous system disorders (1 source) Impairment of balance; Translations: [Other abnormalities of gait and mobility] Episodic Other nervous system disorders (1 source) Abnormal gait; Translations: [Unspecified abnormalities of gait and mobility] 09-27-2022 Episodic Other screening for suspected conditions (not mental disorders or infectious disease) (1 source) Patient encounter status; Translations: [Encounter for screening for lipoid disorders] Episodic Paralysis (3 sources) Cerebral palsy; Translations: [Cerebral palsy, unspecified] Onset: 09-27-2022 09-27-2022 Chronic Thyroid disorders (16 sources) Hypothyroidism; Translations: [Hypothyroidism, unspecified] Onset: 11-06-2010 11-06-2010 Chronic Urinary tract infections (12 sources) Recurrent urinary tract infection; Translations: [Urinary tract infection, site not specified] Onset: 02-01-2018 02-01-2018 Episodic Past or Other Problems Problem Classification Problem Date Documented Date Episodic/Chronic Other nervous system disorders (1 source) Unspecified abnormalities of gait and mobility; Translations: [Gait difficulty] Onset: 09-27-2022 Episodic Viral infection (2 sources) Viral disease; Translations: [Viral infection, unspecified] Onset: 09-27-2022 09-27-2022 Episodic Results Test Name Value Interpretation Reference Range Facil ity Vital Signs Date Time Vital Sign Value Performing Clinician Sendy oscar 01-11-2023 12:54-0500 Body height 156.2 cm Juan Rambo METALIZING SUPERVISOR.SCRAP SHEAR OPERATOR Work Phone: [facility] 01-11-2023 12:54-0500 Body temperature 96.91 [degF] Juan Rambo METALIZING SUPERVISOR.SCRAP SHEAR OPERATOR Work Phone: [facility] 01-11-2023 12:54-0500 Body weight 54.61 kg Juan Rambo METALIZING SUPERVISOR.SCRAP SHEAR OPERATOR Work Phone: [facility] 01-11-2023 12:54-0500 Diastolic blood pressure 73 mm[Hg] Juan Rambo METALIZING SUPERVISOR.SCRAP SHEAR OPERATOR Work Phone: [facility] 01-11-2023 12:54-0500 Heart rate 84 /min Juan Rambo METALIZING SUPERVISOR.SCRAP SHEAR OPERATOR Work Phone: [facility] 01-11-2023 12:54-0500 Respiratory rate 16 /min Juan Rambo METALIZING SUPERVISOR.SCRAP SHEAR OPERATOR Work Phone: [facility] 01-11-2023 12:54-0500 SaO2% (BldA) [Mass fraction] 97 % Juan Rambo METALIZING SUPERVISOR.SCRAP SHEAR OPERATOR Work Phone: [facility] 01-11-2023 12:54-0500 Systolic blood pressure 107 mm[Hg] Juan Rambo METALIZING SUPERVISOR.SCRAP SHEAR OPERATOR Work Phone: [facility] 12-28-2022 10:03-0500 Body height 152.4 cm Grace Bhatt PA-C Work Phone: [facility] 12-28-2022 10:03-0500 Body temperature 98.01 [degF] Grace Bhatt PA-C Work Phone: [facility] 12-28-2022 10:03-0500 Body weight 54.7 kg Grace Bhatt PA-C Work Phone: [facility] 12-28-2022 10:03-0500 Diastolic blood pressure 78 mm[Hg] Grace Bhatt PA-C Work Phone: [facility] 12-28-2022 10:03-0500 Heart rate 84 /min Grace Bhatt PA-C Work Phone: [facility] 12-28-2022 10:03-0500 Respiratory rate 14 /min Grace Bhatt PA-C Work Phone: [facility] 12-28-2022 10:03-0500 SaO2% (BldA) [Mass fraction] 98 % Grace Bhatt PA-C Work Phone: [facility] 12-28-2022 10:03-0500 Systolic blood pressure 102 mm[Hg] Grace Bhatt PA-C Work Phone: [facility] 09-27-2022 12:41-0400 Body temperature 97.2 [degF] Kassiyd Tannhof METALIZING SUPERVISOR.SCRAP SHEAR OPERATOR Work Phone: [facility] 09-27-2022 12:41-0400 Body weight 50.8 kg Kassidy Tannhof METALIZING SUPERVISOR.SCRAP SHEAR OPERATOR Work Phone: [facility] 09-27-2022 12:41-0400 Diastolic blood pressure 60 mm[Hg] Kassidy Tannhof METALIZING SUPERVISOR.SCRAP SHEAR OPERATOR Work Phone: [facility] 09-27-2022 12:41-0400 Heart rate 77 /min Kassidy Tannhof METALIZING SUPERVISOR.SCRAP SHEAR OPERATOR Work Phone: [facility] 09-27-2022 12:41-0400 Respiratory rate 16 /min Kassidy Tannhof METALIZING SUPERVISOR.SCRAP SHEAR OPERATOR Work Phone: [facility] 09-27-2022 12:41-0400 SaO2% (BldA) [Mass fraction] 94 % Kassidy Tannhof METALIZING SUPERVISOR.SCRAP SHEAR OPERATOR Work Phone: [facility] 09-27-2022 12:41-0400 Systolic blood pressure 90 mm[Hg] Kassidy Tannhof METALIZING SUPERVISOR.SCRAP SHEAR OPERATOR Work Phone: [facility] 12-22-2021 11:06-0500 Body height 149.9 cm Grace Bhatt PA-C Work Phone: [facility] 12-22-2021 11:06-0500 Body temperature 96.91 [degF] Grace Bhatt PA-C Work Phone: [facility] 12-22-2021 11:06-0500 Body weight 53.52 kg Grace Bhatt PA-C Work Phone: [facility] 12-22-2021 11:06-0500 Diastolic blood pressure 70 mm[Hg] Grace Bhatt PA-C Work Phone: [facility] 12-22-2021 11:06-0500 Heart rate 86 /min Grace Bhatt PA-C Work Phone: [facility] 12-22-2021 11:06-0500 Respiratory rate 14 /min Grace Bhatt PA-C Work Phone: [facility] 12-22-2021 11:06-0500 SaO2% (BldA) [Mass fraction] 99 % Grace Bhatt PA-C Work Phone: [facility] 12-22-2021 11:06-0500 Systolic blood pressure 104 mm[Hg] Grace Bhatt PA-C Work Phone: [facility] 12-14-2021 10:02-0500 Body height 152 cm Kassidy Tannhof METALIZING SUPERVISOR.SCRAP SHEAR OPERATOR Work Phone: [facility] 12-14-2021 10:02-0500 Body weight 53.07 kg Kassidy Tannhof METALIZING SUPERVISOR.SCRAP SHEAR OPERATOR Work Phone: [facility] 12-14-2021 10:02-0500 Diastolic blood pressure 70 mm[Hg] Kassidy Tannhof METALIZING SUPERVISOR.SCRAP SHEAR OPERATOR Work Phone: [facility] 12-14-2021 10:02-0500 Heart rate 78 /min Kassidy Tannhof METALIZING SUPERVISOR.SCRAP SHEAR OPERATOR Work Phone: [facility] 12-14-2021 10:02-0500 Respiratory rate 16 /min Kassidy Tannhof METALIZING SUPERVISOR.SCRAP SHEAR OPERATOR Work Phone: [facility] 12-14-2021 10:02-0500 SaO2% (BldA) [Mass fraction] 98 % Kassidy Tannhof METALIZING SUPERVISOR.SCRAP SHEAR OPERATOR Work Phone: [facility] 12-14-2021 10:02-0500 Systolic blood pressure 100 mm[Hg] Kassidy Jang APRN.CNP Work Phone: [facility] Encounters Encounter Date Encounter Type Care Provider Facility Start: 02-16-2023 End: 02-17-2023 ambulatory VINI PRADHAN Facility:[facility] Start: 01-12-2023 Telephone encounter Juan rosa APRN.CNP Work Phone: [facility] Procedures Date Procedure Procedure Detail Performing Clinician Start: 12-29-2022 Haloperidol decanoate inj Asim Brown Start: 12-29-2022 Psysoc rehab svc, pe r 15 min Asim Brown Start: 12-13-2022 Lipid 1996 panel - S miguel or Plasma Juan Nguyen APRN.SCRAP SHEAR OPERATOR Work Phone: Start: 08-01-2018 Adult depression scr eening assessment Vini Pradhan MD Work Phone: Plan of Treatment Date Care Activity Detail Author Start: 12-14-2027 Lipid 1996 panel - S miguel or Plasma Lipid Screening [facility] Start: 08-12-2026 LIPID SCREEN LIPID SCREEN [facility] Start: 12-13-2025 Diabetes Screening Diabetes Screenin g [facility] Start: 05-15-2025 LIPID SCREEN LIPID SCREEN [facility] Start: 08-12-2024 DIABETES SCREEN DIABETES SCREEN [facility] Start: 01-12-2024 Annual PCP Team Distribution Lead inge Disease Visit Annual PCP Team Chronic Disease Visit [facility] Start: 01-12-2024 Covid-19 Vaccine (#1) Covid-19 Vacci ne (#1) [facility] Immunizations Immunization Date Immunization Notes Care Provider Fa cilimolly 12-08-2017 influenza, injectabl e, quadrivalent, contains preservative Vini Pradhan MD Work Phone: [facility] 12-08-2017 influenza virus vaccine, unspecified formulation Juan Nguyen APRN.SCRAP SHEAR OPERATOR Work Phone: [facility] Payers Date Payer Category Payer [place] [id number] 2012-Present [phone] [address] [place] [address] Medicaid [id number] 2012 [place] [id number] 2012-Present [phone] [address] [place] [id number] Medicaid [id number] 2012 Medicaid [id number] 1970 Unknown [id number] Social History Date Type Detail Facility Start: 05-02-2017 End: 12-14-2021 Tobacco smoking status NHIS Never smoked tobacco [facility] Start: 08-13-2020 End: 09-27-2022 Alcohol intake Current non-drinker of alcohol (finding) [facility] Start: 1970 Sex Assigned At Not on file [facility] Start: 05-02-2017 End: 12-14-2021 Tobacco use and exposure Smokeless tobacco non-user [facility] Start: 12-04-2021 End: 12-22-2021 Exposure to SARS-CoV-2 (event) Not sure [facility] Start: 09-27-2022 End: 01-11-2023 History of Social function [facility] Start: 09-27-2022 End: 01-11-2023 Tobacco use panel [facility] Adult Depression Scr eening Assessment 0 [facility] Start: 12-28-2022 End: 01-11-2023 Alcohol intake Ex-drinker (finding) [facility] Clinical Notes 07-23-2021 to 02-16-2023 Telephone Encounter - Tram Suarez RN - 01/12/2023 8:56 AM ESTTelephone Encounter - Juan Nguyen APRN.CNP - 01/12/2023 8:25 AM Juan Arriola APRN.SCRAP SHEAR OPERATOR - 01/11/2023 1:00 PM EST Note Date & Type Note Facility 01-10-2024 Note HNO ID: [id number] Author: KASSIDY JANG APRN.SCRAP SHEAR OPERATOR Service: ? Author Type: Nurse Practitioner Type: Progress Notes Filed: 02/16/2023 11:02 Note Text: This is a 52 year old male who presents today with: Patient presents with: Follow Up: Hospital follow up HISTORY OF PRESENT ILLNESS: Saad Alvarez is a 52 year old male. 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 Testing done: CBC, BMP normal. UA, leukocyte Estrace and nitrates were present. +2 bacteria. Serum alcohol was negative. Urine tox screen was negative. Chest x-ray was normal. Treatment given: Ativan and 1 dose of Keflex. Given prescription for Keflex. Current symptoms: Symptoms resolved, behavior now normal. Refers that prior to UTI RX Flomax was sent to wrong pharmacy. No dysuria, hematuria, abdominal pain, or fever. Staying well hydrated. Follows with urology annually. Over all feels well. PAST MEDICAL HISTORY: PAST MEDICAL HISTORY Diagnosis Date Bipolar 1 disorder (HCC) Celiac disease Mental retardation Unspecified hypothyroidism PAST SURGICAL HISTORY Procedure Laterality Date CYSTOSCOPY 2005 EXC CSTIC HYGROMA AX/CRV W/O DP NEUROVASC DSJ 1971 Left cheek RPR 1ST INGUN HRNA AGE 4 YRS/> REDUCIBLE Hernia repair, inguinal ALLERGIES Gluten MEDICATIONS Current Outpatient Medications Medication Sig levothyroxine (SYNTHROID) 50 mcg tablet Take 1 tablet by mouth every morning. tamsulosin (FLOMAX) 0.4 mg Take 1 capsule by mouth daily at bedtime. maltodextrin-xanthan gum (THICKEN UP CLEAR) powd Use with any liquids docusate sodium (COLACE) 100 mg capsule Take 1 capsule by mouth twice daily as needed for Constipation. QUEtiapine 100 mg tablet Take 1 tablet by mouth once daily. quetiapine (SEROQUEL) 300 mg ORAL tablet Take 1 tablet by mouth daily at bedtime. divalproex DR 500 mg ORAL EC tablet Take one tablet in the AM, two tablets in the evening benztropine 2 mg ORAL tablet Take 1 tablet by mouth daily at bedtime. haloperidol decanoate (HALDOL DECANOATE) 100 mg/mL INTRAMUSC. injection 0.75 mg every 4 weeks acetaminophen 650 mg CR tablet Take 1 tablet by mouth every 8 hours as needed. No current facility-administered medications for this visit. FAMILY HISTORY Problem Relation Age of Onset Heart Mother Colon Cancer Father No Known Problems Sister Developmental problem Brother Developmental problem Brother Social History Tobacco Use Smoking status: Never Smokeless tobacco: Never Vaping Use Vaping Use: Never used Substance Use Topics Alcohol use: Not Currently Drug use: Never REVIEW OF SYSTEMS GENERAL: No weight loss, malaise or fevers/chills HEENT: Negative for frequent or significant headaches, No changes in hearing or vision. NECK: Negative for lumps, goiter, pain and significant neck swelling RESPIRATORY: Negative for cough, hemoptysis, wheezing, dyspnea or shortness of breath CARDIOVASCULAR: Negative for chest pain, leg swelling, orthopnea, or palpitations GI: No nausea, vomiting, or diarrhea/constipation. No hematochezia/melena. No heartburn or reflux symptoms. : No history of dysuria, frequency or incontinence MUSCULOSKELETAL: Negative for joint pain or swelling. SKIN: Negative for lesions, rash, and itching ENDOCRINE: Negative for cold or heat intolerance, polyuria, polydipsia and goiter NEURO: No history of headaches, syncope, paralysis, seizures or tremors MOOD: Negative for depression, anxiety, or suicidal ideation. EXAM: BP 100/76 Pulse 76 Resp 16 Wt 53.5 kg (118 lb) SpO2 97% BMI 21.93 kg/m? PHYSICAL EXAM: General Appearance: Well appearing, alert, in no acute distress, well-hydrated, well nourished. Skin: Skin color, texture, turgor normal, no suspicious rashes or lesions. Head: Normocephalic, no masses, lesions, tenderness or abnormalities. Eyes: Anicteric sclera. Extraocular movements are intact. Lungs: Lungs clear to auscultation. No wheezing, rhonchi, rales. Heart: RRR without murmur, gallop, or rubs. No ectopy. Abdomen: Normal abdominal exam, Abdomen soft, non-tender. Bowel sounds normal. No masses, organomegaly, Negative CVA tenderness. Extremities: No deformities, edema, skin discoloration, clubbing or cyanosis. Good capillary refill. Peripheral Pulses: Normal, Capillary refill <2secs, strong peripheral pulses, Pulses palpable. Neurologic: Gait normal. Sensation grossly intact. ASSESSMENT/PLAN: 1. Hospital discharge follow-up - ICD9: V67.59, ICD10: Z09 (primary diagnosis) - Doing well since hospital discharge. 2. Acute cystitis without hematuria - ICD9: 595.0, ICD10: N30.00 - Resolved - Instructed to stay well hydrated - Follow up if urinary or behavioral changes are noted. Follow-up as needed Discussed treatment plan and (more content not included)... [facility] 01-12-2023 Miscellaneous Notes Pts director employee communications Mikie was called and is notified of providers results and instructions. She voices understanding. Tram Suarez RN Please let the patient/caregiver know that his TSH was normal. I sent in a refill of his levothyroxine for a year. Juan Nguyen APRN.LUIS MANUEL documented in this encounter [facility] 01-11-2023 Note HNO ID: [id number] Author: Juan Nguyen APRN.LUIS MANUEL Service: ? Author Type: Nurse Practitioner Type: Progress Notes Filed: 01/11/2023 1:15 PM Note Text: Chief Complaint Patient presents with: Physical HPI Saad Alvarez is a 52 year old male who presents here today for extensive exam. Patient here with caregiver. History of mental retardation, bipolar 1 disorder, celiac disease, hypothyroidism, and cerebral palsy. Following with psych for bipolar disorder. Prescribed levothyroxine 50 mcg once daily for hypothyroidism. Uses thickened up powder for all liquids. Following with urology for BPH. Recent encounter on 12/28. Had labs completed recently in December. TSH was not drawn. Glucose was normal. Hemoglobin A1c was normal. Cholesterol panel was okay. He is of healthy weight. 10 point ROS is negative. Depression Screening PHQ-2 Score 01/11/2023 0 Depression screening tool completed and reviewed. Based on score and interview, patient is not at risk for depression. Screening tool discussed with patient, and I recommended no further intervention at this time Past medical history, appointments, medications, allergies reviewed. Previous Medical History PAST MEDICAL HISTORY Diagnosis Date Bipolar 1 disorder (HCC) Celiac disease Mental retardation Unspecified hypothyroidism Previous Surgical History PAST SURGICAL HISTORY Procedure Laterality Date CYSTOSCOPY 2005 EXC CSTIC HYGROMA AX/CRV W/O DP NEUROVASC DSJ 1971 Left cheek RPR 1ST INGUN HRNA AGE 4 YRS/> REDUCIBLE Hernia repair, inguinal Family History FAMILY HISTORY Problem Relation Age of Onset Heart Mother Colon Cancer Father No Known Problems Sister Developmental problem Brother Developmental problem Brother Patient Allergies ALLERGIES Allergen Reactions Gluten Other: See Comments Celiac disease Current Medications Current Outpatient Medications on File Prior to Visit Medication Sig tamsulosin (FLOMAX) 0.4 mg Take 1 capsule by mouth daily at bedtime. levothyroxine (SYNTHROID) 50 mcg tablet Take 1 tablet by mouth every morning. maltodextrin-xanthan gum (THICKEN UP CLEAR) powd Use with any liquids docusate sodium (COLACE) 100 mg capsule Take 1 capsule by mouth twice daily as needed for Constipation. QUEtiapine 100 mg tablet Take 1 tablet by mouth once daily. quetiapine (SEROQUEL) 300 mg ORAL tablet Take 1 tablet by mouth daily at bedtime. divalproex DR 500 mg ORAL EC tablet Take one tablet in the AM, two tablets in the evening benztropine 2 mg ORAL tablet Take 1 tablet by mouth daily at bedtime. haloperidol decanoate (HALDOL DECANOATE) 100 mg/mL INTRAMUSC. injection 0.75 mg every 4 weeks acetaminophen 650 mg CR tablet Take 1 tablet by mouth every 8 hours as needed. No current facility-administered medications on file prior to visit. Social History Social History Tobacco Use Smoking status: Never Smokeless tobacco: Never Vaping Use Vaping Use: Never used Substance Use Topics Alcohol use: Not Currently Drug use: Never REVIEW OF SYSTEMS: as above Reviewed relevant PMHx, PSHx, Social Hx, current medications and allergies. EXAM: BP 107/73 Pulse 84 Temp 36.1 ?C (96.9 ?F) (Left Tympanic) Resp 16 Ht 156.2 cm (5' 1.5 ) Wt 54.6 kg (120 lb 6.4 oz) SpO2 97% BMI 22.38 kg/m? General Appearance: Well appearing, alert, in no acute distress, well-hydrated, well nourished.. Head: Normocephalic, no masses, lesions, tenderness or abnormalities. Eyes: Anicteric sclera. Pupils are equally round and reactive to light. Extraocular movements are intact. . Ears: External ears normal, canals clear. Nose/Sinuses: Nares normal, septum midline, mucosa normal, no drainage or sinus tenderness. Oropharynx: Lips, mucosa, and tongue normal, teeth and gums normal, oropharynx normal. Neck: Supple, no adenopathy; thyroid symmetric, normal size Lungs: Lungs clear to auscultation. No wheezing, rhonchi, rales.. Heart: RRR without murmur, gallop, or rubs. No ectopy. Extremities: No deformities, edema Health Maintenance List Hepatitis B Vaccine(1 of 3 - 3-dose series) Never done Covid-19 Vaccine(1) Never done Hepatitis C Screening Never done HIV Screening Never done DTaP,Tdap,Td Vaccine(1 - Tdap) Never done Colorectal Cancer Screening Never done Shingrix Vaccine(1 of 2) Never done Depression Assessment Never done Influenza Vaccine(1) due on 10/08/2022 Annual PCP Team Chronic Disease Visit due on 09/28/2023 Diabetes Screening due on 12/13/2025 Lipid Screening due on 12/14/2027 Data reviewed Component Latest Ref Rng AND Units 12/13/2022 Protein, Total 6.3 - 8.0 g/dL 7.8 Albumin 3.9 - 4.9 g/dL 4.1 Calcium 8.5 - 10.2 mg/dL 9.9 Bilirubin, Total 0.2 - 1.3 mg/dL 0.5 Alkaline Phosphatase 38 - 113 U/L 61 AST 14 - 40 U/L 35 ALT 10 - 54 U/L 13 Glucose 74 - 99 mg/dL 78 BUN 9 - 24 mg/dL 15 Creatinine 0.73 - 1.22 mg/dL 0.68 (L) Sodium 136 - 144 mmol/L (more content not included)... [facility] 01-11-2023 History of Presen t illness Narrative Chief Complaint Patient presents with: Physical HPI Saad Alvarez is a 52 year old male who presents here today for extensive exam. Patient here with caregiver. History of mental retardation, bipolar 1 disorder, celiac disease, hypothyroidism, and cerebral palsy. Following with psych for bipolar disorder. Prescribed levothyroxine 50 mcg once daily for hypothyroidism. Uses thickened up powder for all liquids. Following with urology for BPH. Recent encounter on 12/28. Had labs completed recently in December. TSH was not drawn. Glucose was normal. Hemoglobin A1c was normal. Cholesterol panel was okay. He is of healthy weight. 10 point ROS is negative. Depression Screening PHQ-2 Score 01/11/2023 0 Depression screening tool completed and reviewed. Based on score and interview, patient is not at risk for depression. Screening tool discussed with patient, and I recommended no further intervention at this time Past medical history, appointments, medications, allergies reviewed. Previous Medical History PAST MEDICAL HISTORY Diagnosis Date Bipolar 1 disorder (HCC) Celiac disease Mental retardation Unspecified hypothyroidism Previous Surgical History PAST SURGICAL HISTORY Procedure Laterality Date CYSTOSCOPY 2005 EXC CSTIC HYGROMA AX/CRV W/O DP NEUROVASC DSJ 1971 Left cheek RPR 1ST INGUN HRNA AGE 4 YRS/> REDUCIBLE Hernia repair, inguinal Family History FAMILY HISTORY Problem Relation Age of Onset Heart Mother Colon Cancer Father No Known Problems Sister Developmental problem Brother Developmental problem Brother Patient Allergies ALLERGIES Allergen Reactions Gluten Other: See Comments Celiac disease Current Medications Current Outpatient Medications on File Prior to Visit Medication Sig tamsulosin (FLOMAX) 0.4 mg Take 1 capsule by mouth daily at bedtime. levothyroxine (SYNTHROID) 50 mcg tablet Take 1 tablet by mouth every morning. maltodextrin-xanthan gum (THICKEN UP CLEAR) powd Use with any liquids docusate sodium (COLACE) 100 mg capsule Take 1 capsule by mouth twice daily as needed for Constipation. QUEtiapine 100 mg tablet Take 1 tablet by mouth once daily. quetiapine (SEROQUEL) 300 mg ORAL tablet Take 1 tablet by mouth daily at bedtime. divalproex DR 500 mg ORAL EC tablet Take one tablet in the AM, two tablets in the evening benztropine 2 mg ORAL tablet Take 1 tablet by mouth daily at bedtime. haloperidol decanoate (HALDOL DECANOATE) 100 mg/mL INTRAMUSC. injection 0.75 mg every 4 weeks acetaminophen 650 mg CR tablet Take 1 tablet by mouth every 8 hours as needed. No current facility-administered medications on file prior to visit. Social History Social History Tobacco Use Smoking status: Never Smokeless tobacco: Never Vaping Use Vaping Use: Never used Substance Use Topics Alcohol use: Not Currently Drug use: Never REVIEW OF SYSTEMS: as above Reviewed relevant PMHx, PSHx, Social Hx, current medications and allergies. EXAM: BP 107/73 Pulse 84 Temp 36.1 C (96.9 F) (Left Tympanic) Resp 16 Ht 156.2 cm (5' 1.5 ) Wt 54.6 kg (120 lb 6.4 oz) SpO2 97% BMI 22.38 kg/m General Appearance: Well appearing, alert, in no acute distress, well-hydrated, well nourished.. Head: Normocephalic, no masses, lesions, tenderness or abnormalities. Eyes: Anicteric sclera. Pupils are equally round and reactive to light. Extraocular movements are intact. . Ears: External ears normal, canals clear. Nose/Sinuses: Nares normal, septum midline, mucosa normal, no drainage or sinus tenderness. Oropharynx: Lips, mucosa, and tongue normal, teeth and gums normal, oropharynx normal. Neck: Supple, no adenopathy; thyroid symmetric, normal size Lungs: Lungs clear to auscultation. No wheezing, rhonchi, rales.. Heart: RRR without murmur, gallop, or rubs. No ectopy. Extremities: No deformities, edema Health Maintenance List Hepatitis B Vaccine(1 of 3 - 3-dose series) Never done Covid-19 Vaccine(1) Never done Hepatitis C Screening Never done HIV Screening Never done DTaP,Tdap,Td Vaccine(1 - Tdap) Never done Colorectal Cancer Screening Never done Shingrix Vaccine(1 of 2) Never done Depression Assessment Never done Influenza Vaccine(1) due on 10/08/2022 Annual PCP Team Chronic Disease Visit due on 09/28/2023 Diabetes Screening due on 12/13/2025 Lipid Screening due on 12/14/2027 Data reviewed Component Latest Ref Rng & Units 12/13/2022 Protein, Total 6.3 - 8.0 g/dL 7.8 Albumin 3.9 - 4.9 g/dL 4.1 Calcium 8.5 - 10.2 mg/dL 9.9 Bilirubin, Total 0.2 - 1.3 mg/dL 0.5 Alkaline Phosphatase 38 - 113 U/L 61 AST 14 - 40 U/L 35 ALT 10 - 54 U/L 13 Glucose 74 - 99 mg/dL 78 BUN 9 - 24 mg/dL 15 Creatinine 0.73 - 1.22 mg/dL 0.68 (L) Sodium 136 - 144 mmol/L 139 Potassium 3.7 - 5.1 mmol/L 4.5 Chloride 97 - 105 mmol/L 104 CO2 22 - 30 mmol/L 23 Anion Gap 9 - 18 mmol/L 12 eGFR >=60 mL/min/1.73m 111 Cholesterol, Total <200 mg/dL 180 Triglyceride <150 mg/dL 49 HDL Cholesterol >39 mg/dL 58 Non HDL Cholesterol <130 mg/dL 122 Fasting Time hrs 1 VLDL Cholesterol <30 mg/dL 10 TC:HDL Ratio <5.10 3.10 LDL Cholesterol <100 mg/dL 112 (H) LDL:HDL Ratio <2.54 1.93 Hemoglobin A1C 4.3 - 5.6 % 5.4 Estimated Average Glucose mg/dL 108 Valproic Acid 50.0 - 100.0 ug/mL 85.6 Glucose, Fasting 74 - 99 mg/dL 89 Bilirubin, Conjug <0.2 mg/dL <0.2 ASSESSMENT/PLAN: 1. Wellness examination - ICD9: V70.0, ICD10: Z00.00 (primary diagnosis) - Counseled on healthy diet and regular exercise - Follow up for annual exam in one year -Declined colon cancer screening, vaccinations today. 2. Hypothyroidism, unspecified type - ICD9: 244.9, ICD10: E03.9 - Instructed patient on importance of taking on an empty stomach either first thing in the morning or at bedtime. - check TSH today - TSH BLD 3. Bipolar 1 disorder (HCC) - ICD9: 296.7, ICD10: F31.9 -Continue following with psych 4. Intellectual disability - ICD9: 319, ICD10: F79 5. Cerebral palsy, unspecified type (HCC) - ICD9: 343.9, ICD10: G80.9 6. History of BPH - ICD9: V13.89, ICD10: Z87.438 -Continue following with urology Juan Nguyen APRN.SCRAP SHEAR OPERATOR RTO in 12 months, sooner if needed. This note was partly generated using Gen[employer]ault voice recognition dictation and may contain some misspelled or inaccurate words missed on review. documented in this encounter [facility] 12-28-2022 Note HNO ID: [id number] Author: Grace Bhatt PA-C Service: ? Author Type: Physician Dean Of Graduate Studies Type: Progress Notes Filed: 12/28/2022 10:30 AM Note Text: [facility] ESTABLISHED PATIENT CLINIC NOTE Some elements copied from his previous note, which have been updated where appropriate, and all reflect current medical decision making from date of this visit. SERVICE DATE: 12/28/2022 SERVICE TIME: 10:24 AM NAME: Saad Alvarez CHIEF COMPLAINT: Annual Follow-up HISTORY OF PRESENT ILLNESS: Saad Alvarez is a 52 year old male an established patient following up for his Annual Follow-up for BPH The patient reports taking Flomax daily and is doing well no new c/o's or concerns Recommend he continue Flomax as is and renewed Rx to [facility] today LUTS: No new LUTS per caregiver , has been doing well on Flomax Other symptoms: LABS: Hematocrit (%) Date Value 08/12/2021 40.7 05/15/2020 43.4 11/29/2018 44.3 12/09/2017 40.3 05/02/2017 41.0 No results found for: PSA No results found for: TESTOST No results found for: PSA Creatinine Date Value Ref Range Status 12/13/2022 0.68 (L) 0.73 - 1.22 mg/dL Final 12/09/2017 0.61 (L) 0.73 - 1.22 mg/dL Final 05/02/2017 0.82 0.73 - 1.22 mg/dL Final 11/20/2013 0.80 0.70 - 1.40 mg/dL Final MEDICATIONS: levothyroxine (SYNTHROID) 50 mcg tablet Take 1 tablet by mouth every morning. maltodextrin-xanthan gum (THICKEN UP CLEAR) powd Use with any liquids docusate sodium (COLACE) 100 mg capsule Take 1 capsule by mouth twice daily as needed for Constipation. QUEtiapine 100 mg tablet Take 1 tablet by mouth once daily. quetiapine (SEROQUEL) 300 mg ORAL tablet Take 1 tablet by mouth daily at bedtime. divalproex DR 500 mg ORAL EC tablet Take one tablet in the AM, two tablets in the evening benztropine 2 mg ORAL tablet Take 1 tablet by mouth daily at bedtime. haloperidol decanoate (HALDOL DECANOATE) 100 mg/mL INTRAMUSC. injection 0.75 mg every 4 weeks acetaminophen 650 mg CR tablet Take 1 tablet by mouth every 8 hours as needed. tamsulosin (FLOMAX) 0.4 mg Take 1 capsule by mouth daily at bedtime. PAST MEDICAL HISTORY: PAST MEDICAL HISTORY Diagnosis Date Bipolar 1 disorder (HCC) Celiac disease Mental retardation Unspecified hypothyroidism REVIEW OF SYSTEMS: GENERAL: No fever, chills, weight loss, or fatigue. All other systems reviewed and are negative PHYSICAL EXAMINATION: Blood pressure 102/78, pulse 84, temperature 36.7 ?C (98 ?F), temperature source Temporal, resp. rate 14, height 152.4 cm (5'), weight 54.7 kg (120 lb 9.6 oz), SpO2 98 %. GENERAL: WNL nutrition, no deformities, healthy appearing PROBLEM LIST REVIEW: Yes LABS: Not able to give urine sample today PROCEDURES: PVR: 4 ml IMPRESSION/PLAN: 52 year old male with 1. Benign prostatic hyperplasia, unspecified whether lower urinary tract symptoms present - ICD9: 600.00, ICD10: N40.0 > Continue Flomax as prescribed > Flomax refills sent to [facility] > 1 year Appt w/ BMONICA Richardson MT, FCO for annual follow-up and refills. MONICA Zee MT, FCO [facility] 12-28-2022 Note HNO ID: [id number] Author: Mariam Lin LPN Service: ? Author Type: ? Type: Progress Notes Filed: 12/28/2022 10:30 AM Note Text: Verified name and date of . CC Post Void Residual HPI: Saad Alvarez is a 52 year old male. The patient is here now for an appointment with MONICA Zee MT, ODALIS. Procedure: Explained procedure to patient and verbalizes understanding. Performed a PVR. Patient unable to urinate at this time. States he went to bathroom just prior to leaving workshop. Spend a lengthy time in the bathroom trying. Mikie Lomas, social group worker for patient, states he often takes a long time to go. Results of scan: 4 mL The patient tolerated the procedure well. Plan: Appointment with Grace. [facility] 12-28-2022 Instructions Grace Bhatt PA-C - 12/28/2022 10:29 AM EST > 1 year Appt w/ B. MONICA Bhatt, MTFCO for annual follow-up and refills. documented in this encounter [facility] 12-28-2022 History of Presen t illness Narrative Images from the original note were not included. [facility] ESTABLISHED PATIENT CLINIC NOTE Some elements copied from his previous note, which have been updated where appropriate, and all reflect current medical decision making from date of this visit. SERVICE DATE: 12/28/2022 SERVICE TIME: 10:24 AM NAME: Saad Alvarez CHIEF COMPLAINT: Annual Follow-up HISTORY OF PRESENT ILLNESS: Saad Alvarez is a 52 year old male an established patient following up for his Annual Follow-up for BPH The patient reports taking Flomax daily and is doing well no new c/o's or concerns Recommend he continue Flomax as is and renewed Rx to [facility] today LUTS: No new LUTS per caregiver , has been doing well on Flomax Other symptoms: LABS: Hematocrit (%) Date Value 08/12/2021 40.7 05/15/2020 43.4 11/29/2018 44.3 12/09/2017 40.3 05/02/2017 41.0 No results found for: PSA No results found for: TESTOST No results found for: PSA Creatinine Date Value Ref Range Status 12/13/2022 0.68 (L) 0.73 - 1.22 mg/dL Final 12/09/2017 0.61 (L) 0.73 - 1.22 mg/dL Final 05/02/2017 0.82 0.73 - 1.22 mg/dL Final 11/20/2013 0.80 0.70 - 1.40 mg/dL Final MEDICATIONS: levothyroxine (SYNTHROID) 50 mcg tablet Take 1 tablet by mouth every morning. maltodextrin-xanthan gum (THICKEN UP CLEAR) powd Use with any liquids docusate sodium (COLACE) 100 mg capsule Take 1 capsule by mouth twice daily as needed for Constipation. QUEtiapine 100 mg tablet Take 1 tablet by mouth once daily. quetiapine (SEROQUEL) 300 mg ORAL tablet Take 1 tablet by mouth daily at bedtime. divalproex DR 500 mg ORAL EC tablet Take one tablet in the AM, two tablets in the evening benztropine 2 mg ORAL tablet Take 1 tablet by mouth daily at bedtime. haloperidol decanoate (HALDOL DECANOATE) 100 mg/mL INTRAMUSC. injection 0.75 mg every 4 weeks acetaminophen 650 mg CR tablet Take 1 tablet by mouth every 8 hours as needed. tamsulosin (FLOMAX) 0.4 mg Take 1 capsule by mouth daily at bedtime. PAST MEDICAL HISTORY: PAST MEDICAL HISTORY Diagnosis Date Bipolar 1 disorder (HCC) Celiac disease Mental retardation Unspecified hypothyroidism REVIEW OF SYSTEMS: GENERAL: No fever, chills, weight loss, or fatigue. All other systems reviewed and are negative PHYSICAL EXAMINATION: Blood pressure 102/78, pulse 84, temperature 36.7 C (98 F), temperature source Temporal, resp. rate 14, height 152.4 cm (5'), weight 54.7 kg (120 lb 9.6 oz), SpO2 98 %. GENERAL: WNL nutrition, no deformities, healthy appearing PROBLEM LIST REVIEW: Yes LABS: Not able to give urine sample today PROCEDURES: PVR: 4 ml IMPRESSION/PLAN: 52 year old male with 1. Benign prostatic hyperplasia, unspecified whether lower urinary tract symptoms present - ICD9: 600.00, ICD10: N40.0 > Continue Flomax as prescribed > Flomax refills sent to [facility] > 1 year Appt w/ BMONICA Richardson, CIRO, FCO for annual follow-up and refills. MONICA Zee MT, FCO Verified name and date of . CC Post Void Residual HPI: Saad Alvarez is a 52 year old male. The patient is here now for an appointment with MONICA Zee, MT, PA-COV. Procedure: Explained procedure to patient and verbalizes understanding. Performed a PVR. Patient unable to urinate at this time. States he went to bathroom just prior to leaving workshop. Spend a lengthy time in the bathroom trying. Mikie Lomas, social group worker for patient, states he often takes a long time to go. Results of scan: 4 mL The patient tolerated the procedure well. Plan: Appointment with Grace. documented in this encounter [facility] 12-24-2022 Miscellaneous Notes Spoke with Mikie, career technical education instructor, and given provider's message below with verbalized understanding. Mikie re-scheduled patient's physical and states he will get the TSH done that day also. Please let the patient know that his cholesterol panel looks okay. His other labs including kidney function and liver enzymes are normal. His hemoglobin A1c is normal. For some reason the lab did not draw all a TSH. Patient is on levothyroxine, and has been over a year since last TSH. Likely needs to return to get his TSH drawn. Juan Nguyen APRN.SCRAP SHEAR OPERATOR documented in this encounter [facility] 09-27-2022 Note HNO ID: [id number] Author: Kassidy Jang APRN.LUIS MANUEL Service: ? Author Type: Nurse Practitioner Type: Progress Notes Filed: 09/27/2022 1:25 PM Note Text: This is a 52 year old male who presents today with: Patient presents with: Acute Visit: Sore throat HISTORY OF PRESENT ILLNESS: Saad Alvarez is a 52 year old male. Patient presents with: Acute Visit: Sore throat Sore throat for 2 weeks. No Difficulty swallowing, Fever or chills, cough, or Ear pain. Symptoms improved this past weekend. Refers he is feeling better. Attends work shop. Would like a consult to PT to work on his gait. Using a cane as neeed. PAST MEDICAL HISTORY: PAST MEDICAL HISTORY Diagnosis Date Bipolar 1 disorder (HCC) Celiac disease Mental retardation Unspecified hypothyroidism PAST SURGICAL HISTORY Procedure Laterality Date CYSTOSCOPY 2005 EXC CSTIC HYGROMA AX/CRV W/O DP NEUROVASC DSJ 1971 Left cheek RPR 1ST INGUN HRNA AGE 5 YRS/> REDUCIBLE Hernia repair, inguinal ALLERGIES Gluten MEDICATIONS Current Outpatient Medications Medication Sig levothyroxine (SYNTHROID) 50 mcg tablet Take 1 tablet by mouth every morning. tamsulosin (FLOMAX) 0.4 mg Take 1 capsule by mouth daily at bedtime. maltodextrin-xanthan gum (THICKEN UP CLEAR) powd Use with any liquids docusate sodium (COLACE) 100 mg capsule Take 1 capsule by mouth twice daily as needed for Constipation. QUEtiapine 100 mg tablet Take 1 tablet by mouth once daily. quetiapine (SEROQUEL) 300 mg ORAL tablet Take 1 tablet by mouth daily at bedtime. divalproex DR 500 mg ORAL EC tablet Take one tablet in the AM, two tablets in the evening benztropine 2 mg ORAL tablet Take 1 tablet by mouth daily at bedtime. haloperidol decanoate (HALDOL DECANOATE) 100 mg/mL INTRAMUSC. injection 0.75 mg every 4 weeks acetaminophen 650 mg CR tablet Take 1 tablet by mouth every 8 hours as needed. No current facility-administered medications for this visit. FAMILY HISTORY Problem Relation Age of Onset Heart Mother Colon Cancer Father No Known Problems Sister Developmental problem Brother Developmental problem Brother Social History Tobacco Use Smoking status: Never Smokeless tobacco: Never Vaping Use Vaping Use: Never used Substance Use Topics Alcohol use: No Drug use: Never REVIEW OF SYSTEMS GENERAL: No weight loss, malaise or fevers/chills HEENT: + Sore Throat NECK: Negative for lumps, goiter, pain and significant neck swelling RESPIRATORY: Negative for cough, hemoptysis, wheezing, dyspnea or shortness of breath CARDIOVASCULAR: Negative for chest pain, leg swelling, orthopnea, or palpitations GI: No nausea, vomiting, or diarrhea/constipation. No hematochezia/melena. No heartburn or reflux symptoms. : No history of dysuria, frequency or incontinence MUSCULOSKELETAL: Negative for joint pain or swelling. SKIN: Negative for lesions, rash, and itching ENDOCRINE: Negative for cold or heat intolerance, polyuria, polydipsia and goiter NEURO: No history of headaches, syncope, paralysis, seizures or tremors MOOD: Negative for depression, anxiety, or suicidal ideation. EXAM: BP 90/60 Pulse 77 Temp 36.2 ?C (97.2 ?F) Resp 16 Wt 50.8 kg (112 lb) SpO2 94% BMI 22.62 kg/m? PHYSICAL EXAM: General Appearance: Well appearing, alert, in no acute distress, well-hydrated, well nourished. Skin: Skin color, texture, turgor normal, no suspicious rashes or lesions. Head: Normocephalic, no masses, lesions, tenderness or abnormalities. Eyes: Anicteric sclera. Pupils are equally round and reactive to light. Extraocular movements are intact. Ears: External ears normal, canals clear. TMs pearly alan. Oropharynx: Lips, mucosa, and tongue normal, teeth and gums normal, oropharynx normal. Neck: Supple, no adenopathy; thyroid symmetric, normal size, no bruits. Lungs: Lungs clear to auscultation. No wheezing, rhonchi, rales.. Heart: RRR without murmur, gallop, or rubs. No ectopy. Extremities: No deformities, edema, skin discoloration, clubbing or cyanosis. Good capillary refill. Peripheral Pulses: Normal, Capillary refill <2secs, strong peripheral pulses, Pulses palpable. Neurologic: Gait normal. Sensation grossly intact. ASSESSMENT/PLAN: 1. Viral illness - ICD9: 079.99, ICD10: B34.9 (primary diagnosis) - Discussed viral etiology and rationale for treatment. - Symptomatic treatment with prn analgesia - Supportive care with fluids and rest 2. Cerebral palsy, unspecified type (HCC) - ICD9: 343.9, ICD10: G80.9 - CONSULT TO PHYSICAL THERAPY 3. Gait difficulty - ICD9: 781.2, ICD10: R26.9 - CONSULT TO PHYSICAL THERAPY Follow-up if no improvement. Discussed treatment plan and patient voices understanding. Patient's questions answered appropriately. Medications and potential side effects were discussed and patient voices understanding. Kassidy Jang APRN.SCRAP SHEAR OPERATOR This note was partially generated using GenVault (more content not included)... [facility] 09-27-2022 Instructions Kassidy aJng APRN.SCRAP SHEAR OPERATOR - 09/27/2022 1:15 PM EDT Symptoms consistent with viral illness, continue supportive care at home. Stay well hydrated. Consult placed for physical therapy to help with gait. Follow up as needed. documented in this encounter [facility] 09-27-2022 History of Presen t illness Narrative This is a 52 year old male who presents today with: Patient presents with: Acute Visit: Sore throat HISTORY OF PRESENT ILLNESS: Saad Alvarez is a 52 year old male. Patient presents with: Acute Visit: Sore throat Sore throat for 2 weeks. No Difficulty swallowing, Fever or chills, cough, or Ear pain. Symptoms improved this past weekend. Refers he is feeling better. Attends work shop. Would like a consult to PT to work on his gait. Using a cane as neeed. PAST MEDICAL HISTORY: PAST MEDICAL HISTORY Diagnosis Date Bipolar 1 disorder (HCC) Celiac disease Mental retardation Unspecified hypothyroidism PAST SURGICAL HISTORY Procedure Laterality Date CYSTOSCOPY 2005 EXC CSTIC HYGROMA AX/CRV W/O DP NEUROVASC DSJ 1971 Left cheek RPR 1ST INGUN HRNA AGE 5 YRS/> REDUCIBLE Hernia repair, inguinal ALLERGIES Gluten MEDICATIONS Current Outpatient Medications Medication Sig levothyroxine (SYNTHROID) 50 mcg tablet Take 1 tablet by mouth every morning. tamsulosin (FLOMAX) 0.4 mg Take 1 capsule by mouth daily at bedtime. maltodextrin-xanthan gum (THICKEN UP CLEAR) powd Use with any liquids docusate sodium (COLACE) 100 mg capsule Take 1 capsule by mouth twice daily as needed for Constipation. QUEtiapine 100 mg tablet Take 1 tablet by mouth once daily. quetiapine (SEROQUEL) 300 mg ORAL tablet Take 1 tablet by mouth daily at bedtime. divalproex DR 500 mg ORAL EC tablet Take one tablet in the AM, two tablets in the evening benztropine 2 mg ORAL tablet Take 1 tablet by mouth daily at bedtime. haloperidol decanoate (HALDOL DECANOATE) 100 mg/mL INTRAMUSC. injection 0.75 mg every 4 weeks acetaminophen 650 mg CR tablet Take 1 tablet by mouth every 8 hours as needed. No current facility-administered medications for this visit. FAMILY HISTORY Problem Relation Age of Onset Heart Mother Colon Cancer Father No Known Problems Sister Developmental problem Brother Developmental problem Brother Social History Tobacco Use Smoking status: Never Smokeless tobacco: Never Vaping Use Vaping Use: Never used Substance Use Topics Alcohol use: No Drug use: Never REVIEW OF SYSTEMS GENERAL: No weight loss, malaise or fevers/chills HEENT: + Sore Throat NECK: Negative for lumps, goiter, pain and significant neck swelling RESPIRATORY: Negative for cough, hemoptysis, wheezing, dyspnea or shortness of breath CARDIOVASCULAR: Negative for chest pain, leg swelling, orthopnea, or palpitations GI: No nausea, vomiting, or diarrhea/constipation. No hematochezia/melena. No heartburn or reflux symptoms. : No history of dysuria, frequency or incontinence MUSCULOSKELETAL: Negative for joint pain or swelling. SKIN: Negative for lesions, rash, and itching ENDOCRINE: Negative for cold or heat intolerance, polyuria, polydipsia and goiter NEURO: No history of headaches, syncope, paralysis, seizures or tremors MOOD: Negative for depression, anxiety, or suicidal ideation. EXAM: BP 90/60 Pulse 77 Temp 36.2 C (97.2 F) Resp 16 Wt 50.8 kg (112 lb) SpO2 94% BMI 22.62 kg/m PHYSICAL EXAM: General Appearance: Well appearing, alert, in no acute distress, well-hydrated, well nourished. Skin: Skin color, texture, turgor normal, no suspicious rashes or lesions. Head: Normocephalic, no masses, lesions, tenderness or abnormalities. Eyes: Anicteric sclera. Pupils are equally round and reactive to light. Extraocular movements are intact. Ears: External ears normal, canals clear. TMs pearly alan. Oropharynx: Lips, mucosa, and tongue normal, teeth and gums normal, oropharynx normal. Neck: Supple, no adenopathy; thyroid symmetric, normal size, no bruits. Lungs: Lungs clear to auscultation. No wheezing, rhonchi, rales.. Heart: RRR without murmur, gallop, or rubs. No ectopy. Extremities: No deformities, edema, skin discoloration, clubbing or cyanosis. Good capillary refill. Peripheral Pulses: Normal, Capillary refill <2secs, strong peripheral pulses, Pulses palpable. Neurologic: Gait normal. Sensation grossly intact. ASSESSMENT/PLAN: 1. Viral illness - ICD9: 079.99, ICD10: B34.9 (primary diagnosis) - Discussed viral etiology and rationale for treatment. - Symptomatic treatment with prn analgesia - Supportive care with fluids and rest 2. Cerebral palsy, unspecified type (HCC) - ICD9: 343.9, ICD10: G80.9 - CONSULT TO PHYSICAL THERAPY 3. Gait difficulty - ICD9: 781.2, ICD10: R26.9 - CONSULT TO PHYSICAL THERAPY Follow-up if no improvement. Discussed treatment plan and patient voices understanding. Patient's questions answered appropriately. Medications and potential side effects were discussed and patient voices understanding. Kassidy Jang APRN.CNP This note was partially generated using [employer] voice recognition system. Note was reviewed for accuracy. There may be minor misspellings or grammar miscues with [employer] voice recognition. documented in this encounter [facility] 03-26-2022 Miscellaneous Notes The following approved medication requests have been transmitted electronically. Requested Prescriptions Signed Prescriptions Disp Refills levothyroxine (SYNTHROID) 50 mcg tablet 30 tablet 11 Sig: Take 1 tablet by mouth every morning. Authorizing Provider: KASSIDY JANG APRN.CNP Patient has been identified by name and date of : Pharmacy phones for refill(s): Requested Prescriptions Pending Prescriptions Disp Refills levothyroxine (SYNTHROID) 50 mcg tablet 28 tablet 11 Sig: Take 1 tablet by mouth every morning. Date of last office visit in primary care: 12/14/2021, no future appt scheduled Last 2 Encounter Wt Readings: Date: Wt: 12/22/2021 53.5 kg (118 lb) 12/14/2021 53.1 kg (117 lb) Previous labs/tests for medication: Thyroid: TSH (uU/mL) Date Value 08/13/2020 1.390 Please advise. Thank you. Barby Gunn LPN documented in this encounter [facility] 01-25-2022 Miscellaneous Notes Order sent to Tony Pradhan MD Sully from [facility] calls and states that patient is needing a new Quad Cane. Sully asking if provider can write an order for Quad Cane? Patient uses [facility]. Please review and advise, Akila Payan RN documented in this encounter [facility] 12-22-2021 History of Presen t illness Narrative Images from the original note were not included. [facility] ESTABLISHED PATIENT CLINIC NOTE Some elements copied from his previous note, which have been updated where appropriate, and all reflect current medical decision making from date of this visit. SERVICE DATE: 12/22/2021 SERVICE TIME: 11:29 AM NAME: Sada Alvarez CHIEF COMPLAINT: BPH followup HISTORY OF PRESENT ILLNESS: Saad Alvarez is a 51 year old Male with PMH including UTI and Hypothyroid presenting with BPH and mild urine symptoms The patient reports he is doing well , and is having some prostate enlargement LUTS: DYSURIA: no URGENCY: Yes FREQUENCY:6 per day NOCTURIA: 2 per night STRAINING TO VOID: Yes Other symptoms: LABS: Hematocrit (%) Date Value 08/12/2021 40.7 05/15/2020 43.4 11/29/2018 44.3 12/09/2017 40.3 05/02/2017 41.0 No results found for: PSA No results found for: TESTOST MEDICATIONS: tamsulosin (FLOMAX) 0.4 mg Take 1 capsule by mouth daily at bedtime. levothyroxine (SYNTHROID) 50 mcg tablet TAKE 1 TABLET BY MOUTH EVERY MORNING maltodextrin-xanthan gum (THICKEN UP CLEAR) powd Use with any liquids docusate sodium (COLACE) 100 mg capsule Take 1 capsule by mouth twice daily as needed for Constipation. QUEtiapine 100 mg tablet Take 1 tablet by mouth once daily. quetiapine (SEROQUEL) 300 mg ORAL tablet Take 1 tablet by mouth daily at bedtime. divalproex DR 500 mg ORAL EC tablet Take one tablet in the AM, two tablets in the evening benztropine 2 mg ORAL tablet Take 1 tablet by mouth daily at bedtime. haloperidol decanoate (HALDOL DECANOATE) 100 mg/mL INTRAMUSC. injection 0.75 mg every 4 weeks acetaminophen 650 mg CR tablet Take 1 tablet by mouth every 8 hours as needed. PAST MEDICAL HISTORY: PAST MEDICAL HISTORY Diagnosis Date Bipolar 1 disorder (HCC) Celiac disease Mental retardation Unspecified hypothyroidism PAST SURGICAL HISTORY: PAST SURGICAL HISTORY Procedure Laterality Date CYSTOSCOPY 2005 EXC CSTIC HYGROMA AX/CRV W/O DP NEUROVASC DSJ 1971 Left cheek RPR 1ST INGUN HRNA AGE 5 YRS/> REDUCIBLE Hernia repair, inguinal FAMILY HISTORY: FAMILY HISTORY Problem Relation Age of Onset Heart Mother Colon Cancer Father No Known Problems Sister Developmental problem Brother Developmental problem Brother SOCIAL HISTORY: Social Connections: Not on file REVIEW OF SYSTEMS: GENERAL: No fever, chills, weight loss, or fatigue. All other systems reviewed and are negative PHYSICAL EXAMINATION: Blood pressure 104/70, pulse 86, temperature 36.1 C (96.9 F), temperature source Temporal, resp. rate 14, height 149.9 cm (4' 11 ), weight 53.5 kg (118 lb), SpO2 99 %. GENERAL: WNL nutrition, no deformities, healthy appearing NEURO: Awake, alert and oriented x 3 and Normal gait PSYCH: No signs of depression, anxiety, or agitation ENMT (Ear, Nose, Mouth, Throat): No masses, adenopathy, icterus. Thyroid nonpalpable RESP: NL effort, no retractions or purse-lip breathing. CV: No extremity swelling, varices, edema, pallor, erythema GASTROINTESTINAL: Soft, nontender, nondistended, no masses. HERNIAS: None SKIN: No rash, lesions No palpable lymphadenopathy MUSCULOSKELETAL: Extremities normal. No deformities, edema, clubbing or skin discoloration. PROBLEM LIST REVIEW: Yes LABS: Results for orders placed or performed in visit on 08/12/21 GLUCOSE RANDOM BLD Result Value Ref Range Glucose 77 74 - 99 mg/dL HGB A1C Result Value Ref Range Hemoglobin A1C 5.8 (H) 4.3 - 5.6 % Estimated Average Glucose 120 mg/dL CBC + DIFF Result Value Ref Range WBC 6.17 3.70 - 11.00 k/uL RBC 4.46 4.20 - 6.00 m/uL Hemoglobin 13.6 13.0 - 17.0 g/dL Hematocrit 40.7 39.0 - 51.0 % MCV 91.3 80.0 - 100.0 fL MCH 30.5 26.0 - 34.0 pg MCHC 33.4 30.5 - 36.0 g/dL RDW-CV 13.7 11.5 - 15.0 % Platelet Count 228 150 - 400 k/uL MPV 10.7 9.0 - 12.7 fL Neut% 49.3 % Abs Neut 3.04 1.45 - 7.50 k/uL Lymph% 36.0 % Abs Lymph 2.22 1.00 - 4.00 k/uL [facility]% 10.7 % Abs [facility] 0.66 <0.87 k/uL Eosin% 3.1 % Abs Eosin 0.19 <0.46 k/uL Baso% 0.3 % Abs Baso <0.03 <0.11 k/uL Immature Gran % 0.6 % Abs Immature Gran 0.04 <0.10 k/uL NRBC 0.0 /100 WBC Absolute nRBC <0.01 <0.01 k/uL Diff Type Auto VALPROIC A/DEPAKENE Result Value Ref Range Valproic Acid 73.7 50.0 - 100.0 ug/mL LIPID PANEL BASIC Result Value Ref Range Cholesterol, Total 157 <200 mg/dL Triglyceride 90 <150 mg/dL HDL Cholesterol 41 >39 mg/dL Non HDL Cholesterol 116 <130 mg/dL Fasting Time 5 hrs VLDL Cholesterol 18 <30 mg/dL TC:HDL Ratio 3.83 <5.10 LDL Cholesterol 98 <100 mg/dL LDL:HDL Ratio 2.39 <2.54 HEPATIC FUNCTION PNL Result Value Ref Range Albumin 3.9 3.9 - 4.9 g/dL Bilirubin, Total 0.4 0.2 - 1.3 mg/dL Bilirubin, Conjugated <0.2 <0.2 mg/dL Alkaline Phosphatase 59 38 - 113 U/L AST 23 14 - 40 U/L ALT 12 10 - 54 U/L Protein, Total 7.2 6.3 - 8.0 g/dL PROCEDURES: PVR: 52 ml IMAGING: IMPRESSION/PLAN: 51 year old male with . 1. Benign prostatic hyperplasia, unspecified whether lower urinary tract symptoms present - ICD9: 600.00, ICD10: N40.0 > PVR -52 ml >refilled his Flomax already > 1 year Appt w/ MONICA Muir MT, PA-C for annual follow-up. And refills on Flomax MONICA Zee MT, PA-C Verified name and date of . CC Post Void Residual- unable to urinate HPI: Saad Alvarez is a 51 year old male. The patient is here now for an appointment with MONICA Zee MT, PA-COV. Procedure: Explained procedure to patient. Performed a PVR. Patient unable to urinate and instructed to empty bladder as much as possible just prior to having PVR done using bladder ultrasound scanner. Patient spent great length of time in bathroom but caregiver, Mikie Lomas, states patient always takes a long time to go to restroom. Results of scan: 52 mL The patient tolerated the procedure well. Plan: Appointment with Grace. documented in this encounter [facility] 12-14-2021 Instructions Kassidy Jang APRN.LUIS MANUEL - 12/14/2021 10:15 AM EST Get repeat labs in 1 year prior to next visit. Keep up coming appointments with specialists. Continue to take all medication as prescribed. Follow up in 1 year or sooner as needed. Health Promotion: - Eat healthy -- go to [employer] to get started - Have a yearly physical - Get at least 30 minutes of physical activity daily - Get at least 7 to 8 hours of sleep each night - Reach and maintain a healthy weight - Get help to quit or don't start smoking - Limit alcohol use to one drink or less - Do not use illegal drugs or misuse prescription drugs - Wear a helmet when riding a bike and wear protective gear for sports - Wear a seatbelt in cars and not text and drive - Wear sunscreen documented in this encounter [facility] 12-14-2021 History of Presen t illness Narrative This is a 51 year old male who presents today with: Patient presents with: Physical HISTORY OF PRESENT ILLNESS: Saad Alvarez is a 51 year old male. Patient presents with: Physical Here in the office for wellness exam. Polisher [employer] Sander Mikie present today. Diet: Eating a well balanced diet. 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 Vision:Due this year, wears glasses. Dental: No teeth. Sleep: Sleeps well no complaints. Thyroid: Takign Synthroid 50 mcg daily. Denies any difficulty swallowing, palpitations, heat/cold intolerances. BPH/UTI?: Taking Flomax 0.4 mg at bedtime. Following with urology, Grace Bhatt PA-C in [place]. Next appt next week. Bipolar: Going through [facility] psychiat[facility], taking Seroquel 300 mg at bedtime, Divalproex DR 500 mg 1 tablet in the morning and 2 tablets in evening. Benztropine 2 mg QHS. Haldol 0.75 mh IM once every month. Colonoscopy: Has never had completed. Denies wanting at this time. Vaccines: Denies wanting any vaccines. Labs completed in August, A1C 5.8 , lipids WNL. Would like to wait a year for repeat labs. PAST MEDICAL HISTORY: PAST MEDICAL HISTORY Diagnosis Date Bipolar 1 disorder (HCC) Celiac disease Mental retardation Unspecified hypothyroidism PAST SURGICAL HISTORY Procedure Laterality Date CYSTOSCOPY 2005 REMOVAL CYST HYGROMA 1971 Left cheek REPAIR ING HERNIA,5+Y/O,REDUCIBL Hernia repair, inguinal ALLERGIES Gluten MEDICATIONS Current Outpatient Medications Medication Sig levothyroxine (SYNTHROID) 50 mcg tablet TAKE 1 TABLET BY MOUTH EVERY MORNING tamsulosin (FLOMAX) 0.4 mg Take 1 capsule by mouth daily at bedtime. maltodextrin-xanthan gum (THICKEN UP CLEAR) powd Use with any liquids docusate sodium (COLACE) 100 mg capsule Take 1 capsule by mouth twice daily as needed for Constipation. QUEtiapine 100 mg tablet Take 1 tablet by mouth once daily. quetiapine (SEROQUEL) 300 mg ORAL tablet Take 1 tablet by mouth daily at bedtime. divalproex DR 500 mg ORAL EC tablet Take one tablet in the AM, two tablets in the evening benztropine 2 mg ORAL tablet Take 1 tablet by mouth daily at bedtime. haloperidol decanoate (HALDOL DECANOATE) 100 mg/mL INTRAMUSC. injection 0.75 mg every 4 weeks Acetaminophen (TYLENOL 8 HOUR) 650 mg ORAL CR tablet Take 1 tablet by mouth every 8 hours as needed. No current facility-administered medications for this visit. FAMILY HISTORY Problem Relation Age of Onset Colon Cancer Father Heart Mother Developmental problem Brother Developmental problem Brother Social History Tobacco Use Smoking status: Never Smokeless tobacco: Never Vaping Use Vaping Use: Never used Substance Use Topics Alcohol use: No REVIEW OF SYSTEMS GENERAL: No weight loss, malaise or fevers/chills HEENT: Negative for frequent or significant headaches, No changes in hearing or vision. NECK: Negative for lumps, goiter, pain and significant neck swelling RESPIRATORY: Negative for cough, hemoptysis, wheezing, dyspnea or shortness of breath CARDIOVASCULAR: Negative for chest pain, leg swelling, orthopnea, or palpitations GI: No nausea, vomiting, or diarrhea/constipation. No hematochezia/melena. No heartburn or reflux symptoms. : No history of dysuria, frequency or incontinence MUSCULOSKELETAL: Negative for joint pain or swelling. SKIN: Negative for lesions, rash, and itching ENDOCRINE: Negative for cold or heat intolerance, polyuria, polydipsia and goiter NEURO: No history of headaches, syncope, paralysis, seizures or tremors MOOD: Negative for depression, anxiety, or suicidal ideation. EXAM: BP 100/70 Pulse 78 Resp 16 Ht 152 cm (4' 11.84 ) Wt 53.1 kg (117 lb) SpO2 98% BMI 22.97 kg/m PHYSICAL EXAM: General Appearance: Well appearing, alert, in no acute distress, well-hydrated, well nourished. Skin: Skin color, texture, turgor normal, no suspicious rashes or lesions. Head: Normocephalic, no masses, lesions, tenderness or abnormalities. Eyes: Anicteric sclera. Pupils are equally round and reactive to light. Extraocular movements are intact. Ears: External ears normal, canals clear. TM's pearly alan. Neck: Supple, no adenopathy; thyroid symmetric, normal size, no bruits. Lungs: Lungs clear to auscultation. No wheezing, rhonchi, rales. Heart: RRR without murmur, gallop, or rubs. No ectopy. Abdomen: Normal abdominal exam, Abdomen soft, non-tender. Bowel sounds normal. No masses, organomegaly, Negative CVA tenderness. Extremities: No deformities, edema, skin discoloration, clubbing or cyanosis. Good capillary refill. Musculoskeletal: No joint swelling, deformity, or tenderness. Peripheral Pulses: Normal, Capillary refill <2secs, strong peripheral pulses, Pulses palpable. Neurologic: Gait normal. Reflexes normal and symmetric. Sensation grossly intact. Mood: Pleasant, engaged. ASSESSMENT/PLAN: 1. Wellness examination - ICD9: V70.0, ICD10: Z00.00 (primary diagnosis) - Counseled on healthy diet and regular exercise - Colorectal cancer screening recommended - screening declined - Depression screening tool completed and reviewed with patient. Based on score and interview, patient is not at risk for depression and recommended continuing current plan of care. - Follow up for annual exam in one year - COMP METABOLIC PANEL 2. Hypothyroidism, unspecified type - ICD9: 244.9, ICD10: E03.9 - Instructed patient on importance of taking on an empty stomach either first thing in the morning or at bedtime. Stable - Continue current medications 3. Intellectual disability - ICD9: 319, ICD10: F79 - Stable, continue with workshop. 4. Bipolar 1 disorder (HCC) - ICD9: 296.7, ICD10: F31.9 - Continue to take all medication as prescribed. - Keep scheduled appointments with Psychiatry. 5. Elevated glucose - ICD9: 790.29, ICD10: R73.09 - Repeat labs in 1 year prior to next OV. - HGB A1C 6. History of BPH - ICD9: V13.89, ICD10: Z87.438 - Continue with Flomax - Keep scheduled appointments with Urology. 7. Screening cholesterol level - ICD9: V77.91, ICD10: Z13.220 - LIPID PANEL, NONFASTING Follow-up in 1 year or sooner as needed. Discussed treatment plan and patient voices understanding. Patient's questions answered appropriately. Medications and potential side effects were discussed and patient voices understanding. Kassidy Jang APRN.SCRAP SHEAR OPERATOR This note was partially generated using [employer] voice recognition system. Note was reviewed for accuracy. There may be minor misspellings or grammar miscues with Dragon voice recognition. documented in this encounter [facility] 12-02-2021 Miscellaneous Notes Mikie Lomas with Outreach called. Verified name and date of of patient. Per Mikie patient is completely out of Flomax. Informed of need for appointment and scheduled for December 22, 2021. Requested Prescriptions Pending Prescriptions Disp Refills tamsulosin (FLOMAX) 0.4 mg 30 capsule 1 Sig: Take 1 capsule by mouth daily at bedtime. Please review and advise. Mariam Lin LPN documented in this encounter [facility] 07-23-2021 Miscellaneous Notes This has been completed and faxed back to number below. Tatyana Carter Ma Letter printed Vini Pradhan MD Type of letter/form/fax request - celiac/gluten free diet order Form received from fax on 1 floor and placed on MD desk () for completion. Completed form needs to be faxed to [place] [employer] services [employer] support Admin at [phone]. Route to [place] when form completed for processing documented in this encounter [facility] Diagnosis Benign prostatic hyperplasia, unspecified whether lower urinary tract symptoms present- Primary documented in this encounter [facility] note* Diagnosis Intellectual disability- Primary Unspecified intellectual disabilities Balance disorder Other symptoms involving nervous and musculoskeletal systems documented in this encounter [facility] note* Diagnosis Hypothyroidism, unspecified type- Primary documented in this encounter [facility] note* Diagnosis Viral illness- Primary Unspecified viral infection, in conditions classified elsewhere and of unspecified site Cerebral palsy, unspecified type (HCC) Gait difficulty Abnormality of gait documented in this encounter [facility] note* Diagnosis Benign prostatic hyperplasia, unspecified whether lower urinary tract symptoms present- Primary documented in this encounter [facility] note* Diagnosis Wellness examination- Primary Hypothyroidism, unspecified type Bipolar 1 disorder (HCC) Bipolar I disorder, most recent episode (or current) unspecified Intellectual disability Unspecified intellectual disabilities Cerebral palsy, unspecified type (HCC) History of BPH Personal history of other specified diseases documented in this encounter [facility] note* Diagnosis Hypothyroidism, unspecified type documented in this encounter [facility] Reason for Referral Specialty Diagnoses / Procedures Referred By Moe campos Referred To Contact [facility] Diagnoses Cerebral palsy, unspecified type (HCC) Gait difficulty Procedures CONSULT TO PHYSICAL THERAPY PHYSICAL THERAPY EVALUATION HIGH COMPLEX 45 MINS Kassidy Jang, CECILY.SCRAP SHEAR OPERATOR [address] [place] [address] [facility] [place] [address] [place] [id number] Referral ID Status Reason Start Date Expiration Date Visits Requested Visits Authorized [id number] Pending Review Auto-Generat ed Referral 09/27/2022 09/27/2023 1 1 Summary Purpose Family History No Family History Records FoundNo Family History Records Found Advance Directives No Advanced Directives Records FoundNo Advanced Directives Records Found Additional Source Comments Source Comments (unrecognize d section and content) In the event this informatio n is protected by the Federal Confidentiality of Alcohol and Drug Abuse Patient Records regulations: The Federal rules restrict any use of the information to criminally investigate or prosecute any alcohol or drug abuse patient.[facility] the event this information is protected by the Federal Confidentiality of Alcohol and Drug Abuse Patient Records regulations: The Federal rules restrict any use of the information to criminally investigate or prosecute any alcohol or drug abuse patient.[facility] the event this information is protected by the Federal Confidentiality of Alcohol and Drug Abuse Patient Records regulations: The Federal rules restrict any use of the information to criminally investigate or prosecute any alcohol or drug abuse patient.[facility] the event this information is protected by the Federal Confidentiality of Alcohol and Drug Abuse Patient Records regulations: The Federal rules restrict any use of the information to criminally investigate or prosecute any alcohol or drug abuse patient.[facility] the event this information is protected by the Federal Confidentiality of Alcohol and Drug Abuse Patient Records regulations: The Federal rules restrict any use of the information to criminally investigate or prosecute any alcohol or drug abuse patient.[facility] the event this information is protected by the Federal Confidentiality of Alcohol and Drug Abuse Patient Records regulations: The Federal rules restrict any use of the information to criminally investigate or prosecute any alcohol or drug abuse patient.[facility] the event this information is protected by the Federal Confidentiality of Alcohol and Drug Abuse Patient Records regulations: The Federal rules restrict any use of the information to criminally investigate or prosecute any alcohol or drug abuse patient.[facility] the event this information is protected by the Federal Confidentiality of Alcohol and Drug Abuse Patient Records regulations: The Federal rules restrict any use of the information to criminally investigate or prosecute any alcohol or drug abuse patient.[facility] the event this information is protected by the Federal Confidentiality of Alcohol and Drug Abuse Patient Records regulations: The Federal rules restrict any use of the information to criminally investigate or prosecute any alcohol or drug abuse patient.[facility] Hospital[facility] the event this information is protected by the [facility] Confidentiality of Alcohol and Drug Abuse Patient Records regulations: The Federal rules restrict any use of the information to criminally investigate or prosecute any alcohol or drug abuse patient.[facility] the event this information is protected by the Federal Confidentiality of Alcohol and Drug Abuse Patient Records regulations: The Federal rules restrict any use of the information to criminally investigate or prosecute any alcohol or drug abuse patient.[facility] Reason for Visit (unrecogniz ed section and content) Reason Comments Physical Reason Onset Date Comments Refill Request 12/02/2021 Reason Comments Follow Up Reason Comments Orders Reason Onset Date Comments Refill Request 03/26/2022 Reason Comments Acute Visit Sore throat Reason Comments Results Reason Comments Follow Up Benign Prostatic Hypertrophy Care Teams (unrecognized sec tion and content) Oven Laborer Relationship Specialty Start Date End Date Vini Pradhan MD [address], [place] [id number] PCP - General Family Medicine 11/05/10 Oven Laborer Relationship Specialty Start Date End Date Vini Pradhan MD [address] [place] [address] PCP - General Family Medicine 11/05/10 Oven Laborer Relationship Specialty Start Date End Date Vini Pradhan MD [address] [place] [address] PCP - General Family Medicine 11/05/10 Oven Laborer Relationship Specialty Start Date End Date Vini Pradhan MD [address] [place] [address] PCP - General Family Medicine 11/05/10 Oven Laborer Relationship Specialty Start Date End Date Vini Pradhan MD [address] [place] [address] PCP - General Family Medicine 11/05/10 Oven Laborer Relationship Specialty Start Date End Date Vini Pradhan MD [address] [place] [address] PCP - General Family Medicine 11/05/10 Oven Laborer Relationship Specialty Start Date End Date Vini Pradhan MD [address] [place] [address] PCP - General Family Medicine 11/05/10 Oven Laborer Relationship Specialty Start Date End Date Vini Pradhan MD [address] [place] [address] PCP - General Family Medicine 11/05/10 Oven Laborer Relationship Specialty Start Date End Date Vini Pradhan MD [address] [place] [address] PCP - General Family Medicine 11/05/10 (unrecognized sect ion and content) No Status Records FoundNo Status Records Found INFORMATION SOURCE (unrecogn ized section and content) DATE CREATED AUTHOR AUTHOR'S ORGANIZ ATION 02/20/2023 [facility] FOR RECORDS PERTAINING TO PATIENTS WHO ARE OR HAVE BEEN ENROLLED IN A CHEMICAL DEPENDENCY/SUBSTANCEABUSE PROGRAM, SOME INFORMATION MAY BE OMITTED. This clinical summary was aggregated from multiple sources. Caution should be exercised in using it in the provision of clinical care. This summary normalizes information from multiple sources, and as a consequence, information in this document may materially change the coding, format and clinical context of patient data. In addition, data may be omitted in some cases. CLINICAL DECISIONS SHOULD BE BASED ON THE PRIMARY CLINICAL RECORDS. [facility] [employer] provides no warranty or guarantee of the accuracy or completeness of information in this document.
--- NOTE | 2023-03-11 14:16 | PCM.HP.STD ---
HPI - General General Date of Admission: 03/11/23 Date of Service: 03/11/23 Chief Complaint: Decreased LOC HPI Narrative SAAD ALVAREZ, is a 52-year-old [place] gentleman with history of MR, bipolar disorder, celiac disease, hypothyroidism, recurrent UTIs who presented to [facility] ED 03/11/2023 with decreased level consciousness and low blood pressure. Patient had been in his usual health however was out of his medications for 1 week and they were picked up and resumed last night including his monthly Haldol injection. This morning he was picked up by staff to take to his daytime program and was tired and sleeping on the shuttle on the way to the workshop however that was not necessarily unusual but when he got there patient was doubled over and pale and staggering. Blood pressure was 80s over 50s and EMS was called, EMS gave fluids and that did start to improve patient but he remained very tired. Family presented and reported he may have accidentally taken double his medication, patient also found to have UA concerning for UTI. Given patient's mental status and UTI with unsteady gait hospitalist contacted for admission. History obtained primarily from checkout given patient's inability to consistently answer questions, family at bedside endorse history as above and said he had not been complaining of anything leading up to this. Patient said he has been of a headache but was unable to give any further [facility]ATED [facility]IN [facility] Medical History (Updated 03/11/23 @ 14:[address] Radha Saleh MD) Bipolar disorder Celiac disease Hypothyroidism Mental retardation Recurrent UTI Schizophrenia Unsteady gait Home Medications benztropine 2 mg tablet 2 mg PO QHS MENTAL HEALTH 08/25/17 [History Last Taken 03/10/23] levothyroxine 50 mcg tablet (Synthroid) 50 mcg PO DAILY THYROID 08/25/17 [History Last Taken 08/25/17] quetiapine 100 mg tablet 100 mg PO DAILY MENTAL HEALTH 08/25/17 [History Last Taken 03/11/23] quetiapine 300 mg tablet (Seroquel) 300 tab PO QHS MENTAL HEALTH 08/25/17 [History Last Taken 03/10/23] divalproex 500 mg tablet,delayed release 1,000 mg PO QHS 02/14/18 [History Last Taken 03/10/23] docusate sodium 100 mg capsule (DOK) 100 mg PO BID 02/14/18 [History Last Taken Unknown] haloperidol decanoate 100 mg/mL intramuscular solution 75 mg IM QMONTH 02/14/18 [History Last Taken 03/09/23] tamsulosin 0.4 mg capsule 0.4 mg PO QHS 02/14/18 [History Last Taken 03/10/23] divalproex 250 mg tablet,delayed release 250 mg PO BID bipolar 03/11/23 [History Last Taken 03/11/23] Allergy/AdvReac Type Severity Reaction Status Date / Time gluten AdvReac Other Verified 03/11/23 09:49 Social History Smoking Status: Never smoker ROS ROS Narrative Patient reported bit of a headache but was unable to answer any further ROS, unclear if this was largely due to baseline mental status or patient still just 2 out of it, family did report he is not back to baseline Vital Signs Vital Signs Vital Signs: 03/11/23 09:42 03/11/23 09:51 03/11/23 10:41 Temperature 96.0 F L Temperature Source Temporal Pulse Rate 59 L 61 Respiratory Rate 16 16 Respiratory Effort Normal Non-Labored Respiratory Pattern Normal Blood Pressure 121/72 H 110/71 Blood Pressure Mean 88 84 Pulse Ox 100 98 Oxygen Delivery Method Room Air Room Air 03/11/23 11:00 03/11/23 12:25 Temperature Temperature Source Pulse Rate 54 L 57 L Respiratory Rate 16 21 H Respiratory Effort Respiratory Pattern Blood Pressure 126/81 H 129/80 H Blood Pressure Mean 96 96 Pulse Ox 98 Oxygen Delivery Method Room Air Weight Weight: 62.5 kg Body Mass Index (BMI) 22.9 Physical Exam Narrative General: Tired but awake, has difficulty answering questions directly HEENT: Atraumatic Eyes: Anicteric, normal conjunctiva, extraocular movements grossly intact Neck: Supple Respiratory: Clear to auscultation bilaterally, normal respiratory effort Cardiovascular: Regular rate and rhythm GI: Soft, nontender, nondistended Extremities: No edema Musculoskeletal: Moving all extremities Neuro: No overt focal neurological deficits Skin: No rashes appreciated Psych: Cooperative Results Lab / Micro Data 03/11/23 10:40 03/11/23 10:40 Labs: Laboratory Results - last 24 hr 03/11/23 10:40: WBC 6.4, RBC 4.25 L, Hgb 12.4 L, Hct 38.2 L, MCV 89.9, MCH 29.2, MCHC 32.5, RDW Std Deviation 45.8 H, RDW Coeff of Jonathon 14.1, Plt Count 309, MPV 8.6, Immature Gran % (Auto) 1.100 H, Neut % (Auto) 42.4 L, Lymph % (Auto) 41.5 H, [place] % (Auto) 9.9, Eos % (Auto) 4.5, Baso % (Auto) 0.6, Absolute Neuts (auto) 2.7, Absolute Lymphs (auto) 2.65, Nucleated RBC % 0, D-Dimer Quant (PE/DVT) 0.58 H*, Sodium 142, Potassium 3.8, Chloride 111 H, Carbon Dioxide 28.0, Anion Gap 3 L, BUN 16, Creatinine 0.93, Estim Creat Clear Calc 79.91, Est GFR (MDRD) Af Amer 109, Est GFR (MDRD) Non-Af 90, BUN/Creatinine Ratio 17.2, Glucose 84, Calcium 9.3, Total Bilirubin 0.40, Direct Bilirubin 0.11, AST 23, ALT 50, Alkaline Phosphatase 74, Troponin I High Sens < 3 L, Total Protein 7.7, Albumin 3.2, Globulin 4.5 H 03/11/23 11:00: Urine Color Yellow, Urine Clarity Sl. Cloudy, Urine pH 6.0, Ur Specific [place] 1.015, Urine Protein 15 H, Urine Glucose (UA) Normal, Urine Ketones 5 H, Urine Occult Blood 10 H, Urine Nitrite Positive H, Urine Bilirubin Negative, Urine Urobilinogen 1 H, Ur Leukocyte Esterase 500 H, Urine RBC 0-5 SEEN, Urine WBC 25-50 SEEN, Ur Squamous Epith Cells 0-5 SEEN, Urine Bacteria 2+, Urine Mucus 0 SEEN Micro: Microbiology 03/11/23 10:44 Mucosa - Nasopharyngeal SARS-CoV-2, Influenza & RSV (PCR) - Final Imaging Radiology Impression Chest X-Ray 03/11/23 11:20 IMPRESSION: Normal x-ray examination of the chest. Electronically Signed: Jose Rosales MD at 12:00 EST , Chest CTA 03/11/23 11:30 IMPRESSION: Limited examination due to patient motion artifact. No evidence of pulmonary embolism. Findings suggestive of mild atelectasis at the lung bases. Electronically Signed: Jose Rosales MD at 12:07 EST , Assessment & Plan Assessment/Plan (1) UTI (urinary tract infection): (2) Weakness: (3) Hypotension: (4) Bipolar disorder: (5) Unsteady gait: (6) Hypothyroidism: PLAN: Plan # Decreased level consciousness and low blood pressure -Possibly secondary to accidental doubling up of home medications, multiple which are sedating -Will monitor on telemetry and continue gentle hydration -Obtain Depakote level, LFTs, ammonia -Usually when patient has UTI he is hyper and combative so unclear if this is contributing to current mental status or unrelated -BP did improve with fluids but further workup did include CTA which was negative, suspect this may be medication related as well -Also check TSH, family unsure if he is taking Synthroid # Concern for UTI -UA suggestive of UTI -Urine culture -Continue antibiotics -IV fluids -Supportive care # Bipolar disorder -On monthly injections of Haldol, last dose last night -Also takes Seroquel and Depakote -Will continue these at appropriate doses with instructions to hold for sedation #BPH -continue tamsulosin #Hypothyroidism -Continue Synthroid -Family unsure if he is taking his Synthroid, will check TSH #DVT ppx: Lovenox subcu Radha Saleh MD Time spent in the patient's overall evaluation,decision-making process, review of diagnostic data, adjustment of management, discussion with other providers, nursing nursing and ancillary staff involved in patient's care documentation, 56 Minutes Charges/Coding Visit Charges Inpatient E&M: 24897 Init Hosp L2
[2023-03-11 16:32] LABS: Ammonia < 10.0 umol/L (11-32)
[2023-03-11 16:33] LABS: Valproic Acid (Depakene) Level 91 ug/mL (50-100)
--- OUTSIDE RECORDS SUMMARY | 2023-03-11 17:28 | XMS RPT_ITS | CCD ---
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 therapy; Translations: [Encounter for long-term [...] 12:54-0500 Body height 156.2 cm Juan Rambo CRUSHER FEEDER.MILL OILER Work Phone: [facility] 01-11-2023 12:54-0500 Body temperature 96.91 [degF] Juan Rambo CRUSHER FEEDER.MILL OILER Work Phone: [facility] 01-11-2023 12:54-0500 Body weight 54.61 kg Juan Rambo CRUSHER FEEDER.MILL OILER Work Phone: [facility] 01-11-2023 12:54-0500 Diastolic blood pressure 73 mm[Hg] Juan Rambo CRUSHER FEEDER.MILL OILER Work Phone: [facility] 01-11-2023 12:54-0500 Heart rate 84 /min Juan Rambo CRUSHER FEEDER.MILL OILER Work Phone: [facility] 01-11-2023 12:54-0500 Respiratory rate 16 /min Juan Rambo CRUSHER FEEDER.MILL OILER Work Phone: [facility] 01-11-2023 12:54-0500 SaO2% (BldA) [Mass fraction] 97 % Juan Rambo CRUSHER FEEDER.MILL OILER Work Phone: [facility] 01-11-2023 12:54-0500 Systolic blood pressure 107 mm[Hg] Juan Rambo CRUSHER FEEDER.MILL OILER Work Phone: [facility] 12-28-2022 10:03-0500 Body height 152.4 cm Grace Bhatt PA-C Work Phone: [facility] 12-28-2022 10:03-0500 Body temperature 98.01 [degF] Grace Bhatt PA-C Work Phone: [facility] 12-28-2022 10:03-0500 Body weight 54.7 kg Grace Bhatt PA-C Work Phone: [facility] 12-28-2022 10:03-0500 Diastolic blood pressure 78 mm[Hg] Grace Bhatt PA-C Work Phone: [facility] 12-28-2022 10:03-0500 Heart rate 84 /min Grace Bhatt PA-C Work Phone: [facility] 12-28-2022 10:03-0500 Respiratory rate 14 /min Grace Bhatt PA-C Work Phone: [facility] 12-28-2022 10:03-0500 SaO2% (BldA) [Mass fraction] 98 % Grace Bhatt PA-C Work Phone: [facility] 12-28-2022 10:03-0500 Systolic blood pressure 102 mm[Hg] Grace Bhatt PA-C Work Phone: [facility] 09-27-2022 12:41-0400 Body temperature 97.2 [degF] Kassidy Tannhof CRUSHER FEEDER.MILL OILER Work Phone: [facility] 09-27-2022 12:41-0400 Body weight 50.8 kg Kassidy Tannhof CRUSHER FEEDER.MILL OILER Work Phone: [facility] 09-27-2022 12:41-0400 Diastolic blood pressure 60 mm[Hg] Kassidy Tannhof CRUSHER FEEDER.MILL OILER Work Phone: [facility] 09-27-2022 12:41-0400 Heart rate 77 /min Kassidy Tannhof CRUSHER FEEDER.MILL OILER Work Phone: [facility] 09-27-2022 12:41-0400 Respiratory rate 16 /min Kassidy Tannhof CRUSHER FEEDER.MILL OILER Work Phone: [facility] 09-27-2022 12:41-0400 SaO2% (BldA) [Mass fraction] 94 % Kassidy Tannhof CRUSHER FEEDER.MILL OILER Work Phone: [facility] 09-27-2022 12:41-0400 Systolic blood pressure 90 mm[Hg] Kassidy Tannhof CRUSHER FEEDER.MILL OILER Work Phone: [facility] 12-22-2021 11:06-0500 Body height 149.9 cm Grace Bhatt PA-C Work Phone: [facility] 12-22-2021 11:06-0500 Body temperature 96.91 [degF] Grace Bhatt PA-C Work Phone: [facility] 12-22-2021 11:06-0500 Body weight 53.52 kg Grace Bhatt PA-C Work Phone: [facility] 12-22-2021 11:06-0500 Diastolic blood pressure 70 mm[Hg] Grace Bhatt PA-C Work Phone: [facility] 12-22-2021 11:06-0500 Heart rate 86 /min Grace Bhatt PA-C Work Phone: [facility] 12-22-2021 11:06-0500 Respiratory rate 14 /min Grace Bhatt PA-C Work Phone: [facility] 12-22-2021 11:06-0500 SaO2% (BldA) [Mass fraction] 99 % Grace Bhatt PA-C Work Phone: [facility] 12-22-2021 11:06-0500 Systolic blood pressure 104 mm[Hg] Grace Bhatt PA-C Work Phone: [facility] 12-14-2021 10:02-0500 Body height 152 cm Kassidy Tannhof CRUSHER FEEDER.MILL OILER Work Phone: [facility] 12-14-2021 10:02-0500 Body weight 53.07 kg Kassidy Tannhof CRUSHER FEEDER.MILL OILER Work Phone: [facility] 12-14-2021 10:02-0500 Diastolic blood pressure 70 mm[Hg] Kassidy Tannhof CRUSHER FEEDER.MILL OILER Work Phone: [facility] 12-14-2021 10:02-0500 Heart rate 78 /min Kassidy Tannhof CRUSHER FEEDER.MILL OILER Work Phone: [facility] 12-14-2021 10:02-0500 Respiratory rate 16 /min Kassidy Tannhof CRUSHER FEEDER.MILL OILER Work Phone: [facility] 12-14-2021 10:02-0500 SaO2% (BldA) [Mass fraction] 98 % Kassidy Tannhof CRUSHER FEEDER.MILL OILER Work Phone: [facility] 12-14-2021 10:02-0500 Systolic blood pressure 100 mm[Hg] Kassidy Jang APRN.CNP Work Phone: [facility] Encounters Encounter Date Encounter Type Care Provider Facility Start: 02-16-2023 End: 02-17-2023 ambulatory VINI PRADHAN Facility:[facility] Start: 01-12-2023 Telephone encounter Juan rosa APRN.CNP Work Phone: [facility] Procedures Date Procedure Procedure Detail Performing Clinician Start: 12-29-2022 Haloperidol decanoate inj Asim Brown Start: 12-29-2022 Psysoc rehab svc, pe r 15 min Asim Brown Start: 12-13-2022 Lipid 1996 panel - S miguel or Plasma Juan Nguyen APRN.MILL OILER Work Phone: Start: 08-01-2018 Adult depression scr eening assessment Vini Pradhan MD Work Phone: Plan of Treatment Date Care Activity Detail Author Start: 12-14-2027 Lipid 1996 panel - S miguel or Plasma Lipid Screening [facility] Start: 08-12-2026 LIPID SCREEN LIPID SCREEN [facility] Start: 12-13-2025 Diabetes Screening Diabetes Screenin g [facility] Start: 05-15-2025 LIPID SCREEN LIPID SCREEN [facility] Start: 08-12-2024 DIABETES SCREEN DIABETES SCREEN [facility] Start: 01-12-2024 Annual PCP Team [employer] Membership Sales Agent inge Disease Visit Annual PCP Team Chronic Disease Visit [facility] Start: 01-12-2024 Covid-19 Vaccine (#1) Covid-19 Vacci ne (#1) [facility] Immunizations Immunization Date Immunization Notes Care Provider Fa cilimolly 12-08-2017 influenza, injectabl e, quadrivalent, contains preservative Vini Pradhan MD Work Phone: [facility] 12-08-2017 influenza virus vaccine, unspecified formulation Juan Nguyen APRN.MILL OILER Work Phone: [facility] Payers Date Payer Category Payer Medicaid [place] [id number] 2012-Present [phone] [address] [place] [address] Medicaid [id number] 2012 [place] [id number] 2012-Present [phone] [address] [place] [id number] Medicaid [id number] 2012 Medicaid [id number] 1970 Unknown [id number] Social History Date Type Detail Facility Start: 05-02-2017 End: 12-14-2021 Tobacco smoking status NHIS Never smoked tobacco [facility] Start: 08-13-2020 End: 09-27-2022 Alcohol intake Current non-drinker of alcohol (finding) [facility] Start: 1970 Sex Assigned At Not on file [facility] Start: 05-02-2017 End: 12-14-2021 Tobacco use and exposure Smokeless tobacco non-user [facility] Start: 12-04-2021 End: 12-22-2021 Exposure to SARS-CoV-2 (event) Not sure [facility] Start: 09-27-2022 End: 01-11-2023 History of Social function [facility] Start: 09-27-2022 End: 01-11-2023 Tobacco use panel [facility] Adult Depression Scr eening Assessment 0 [facility] Start: 12-28-2022 End: 01-11-2023 Alcohol intake Ex-drinker (finding) [facility] Clinical Notes 07-23-2021 to 02-16-2023 Telephone Encounter - Tram Suarez RN - 01/12/2023 8:56 AM ESTTelephone Encounter - Juan Nguyen APRN.CNP - 01/12/2023 8:25 AM Juan Arriola APRN.MILL OILER - 01/11/2023 1:00 PM EST Note Date & Type Note Facility 01-10-2024 Note HNO ID: [id number] Author: KASSIDY JANG APRN.MILL OILER Service: ? Author Type: Nurse Practitioner Type: Progress Notes Filed: 02/16/2023 11:02 Note Text: This is a 52 year old male who presents today with: Patient presents with: Follow Up: Hospital follow up HISTORY OF PRESENT ILLNESS: Saad Alvarez is a 52 year old male. Patient presents with: Follow Up: Hospital follow up HOSPITAL/ER FOLLOW UP: mall plant caretaker present Reason for visit: Agitation Which facility: [facility] Date of visit: 01/08/23 Diagnosis: [...] treatment plan and (more content not included)... [facility] 01-12-2023 Miscellaneous Notes Pts cane flume watcher Mikie was called and is notified of providers results and instructions. She voices understanding. Tram Suarez RN Please let the patient/caregiver know that his TSH was normal. I sent in a refill of his levothyroxine for a year. Juan Nguyen APRN.LUIS MANUEL documented in this encounter [facility] 01-11-2023 Note HNO ID: [id number] Author: Juan Nguyen APRN.LUIS MANUEL Service: ? [...] - 144 mmol/L (more content not included)... [facility] 01-11-2023 History of Presen t illness Narrative Chief Complaint Patient presents with: Physical HPI aSad Alvarez is a 52 year old male [...] Z87.438 -Continue following with urology Juan Nguyen APRN.MILL OILER RTO in 12 months, sooner if needed. This note was partly generated using Cmxtwenty voice recognition dictation and may contain some misspelled or inaccurate words missed on review. documented in this encounter [facility] 12-28-2022 Note HNO ID: [id number] Author: Grace Bhatt PA-C Service: ? Author Type: Physician Lamp Mechanic Type: Progress Notes Filed: 12/28/2022 10:30 AM Note Text: [facility] ESTABLISHED PATIENT CLINIC NOTE [...] as prescribed > Flomax refills sent to [facility] > 1 year Appt w/ BMONICA Richardson MT, FCO for annual follow-up and refills. MONICA Zee MT, FCO [facility] 12-28-2022 Note HNO ID: [id number] Author: Mariam Lin LPN Service: ? Author [...] in the bathroom trying. Mikie Lomas, social worker health services for patient, states he often takes a long time to go. Results of scan: 4 mL The patient tolerated the procedure well. Plan: Appointment with Grace. [facility] 12-28-2022 Instructions Grace Bhatt PA-C - 12/28/2022 10:29 AM EST > 1 year Appt w/ B. MONICA Bhatt, MTFCO for annual follow-up and refills. documented in this encounter [facility] 12-28-2022 History of Presen t illness Narrative Images from the original note were not included. [facility] [...] as prescribed > Flomax refills sent to [facility] > 1 year Appt w/ BMONICA [...] in the bathroom trying. Mikie Lomas, social worker health services for patient, states he often takes a long time to go. Results of scan: 4 mL The patient tolerated the procedure well. Plan: Appointment with Grace. documented in this encounter [facility] 12-24-2022 Miscellaneous Notes Spoke with Mikie, customer care associate, and given provider's message below with verbalized [...] to get his TSH drawn. Juan Nguyen APRN.MILL OILER documented in this encounter [facility] 09-27-2022 Note HNO ID: [id number] Author: Kassidy Jang APRN.LUIS MANUEL Service: ? [...] discussed and patient voices understanding. Kassidy Jang APRN.MILL OILER This note was partially generated using Cmxtwenty (more content not included)... [facility] 09-27-2022 Instructions Kassidy Jang APRN.MILL OILER - 09/27/2022 1:15 PM EDT Symptoms consistent with viral illness, continue supportive care at home. Stay well hydrated. Consult placed for physical therapy to help with gait. Follow up as needed. documented in this encounter [facility] 09-27-2022 History of Presen t illness Narrative [...] APRN.CNP This note was partially generated using Cmxtwenty voice recognition system. Note was reviewed for accuracy. There may be minor misspellings or grammar miscues with Cmxtwenty voice recognition. documented in this encounter [facility] 03-26-2022 Miscellaneous Notes The following approved medication [...] Barby Gunn LPN documented in this encounter [facility] 01-25-2022 Miscellaneous Notes Order sent to Tony Pradhan MD Sully from [facility] calls and states that patient is needing a new Quad Cane. Sully asking if provider can write an order for Quad Cane? Patient uses [facility]. Please review and advise, Akila Payan RN documented in this encounter [facility] 12-22-2021 History of Presen t illness Narrative Images from the original note were not included. [facility] ESTABLISHED PATIENT CLINIC NOTE Some elements copied from his previous note, which have been updated where appropriate, and all reflect current medical decision making from date of this visit. SERVICE DATE: 12/22/2021 SERVICE TIME: 11:29 AM NAME: Saad Alvarez CHIEF COMPLAINT: BPH followup HISTORY OF [...] Abs Lymph 2.22 1.00 - 4.00 k/uL Barton% 10.7 % Abs Barton 0.66 <0.87 k/uL Eosin% 3.1 % Abs [...] Appointment with Grace. documented in this encounter [facility] 12-14-2021 Instructions Kassidy Jang APRN.LUIS MANUEL - 12/14/2021 10:15 AM EST Get repeat labs in 1 year prior to next visit. Keep up coming appointments with specialists. Continue to take all medication as prescribed. Follow up in 1 year or sooner as needed. Health Promotion: - Eat healthy -- go to [email or web address] to get started - Have a yearly [...] - Wear sunscreen documented in this encounter [facility] 12-14-2021 History of Presen t illness Narrative This is a 51 year old male who presents today with: Patient presents with: Physical HISTORY OF PRESENT ILLNESS: Saad Alvarez is a 51 year old male. Patient presents with: Physical Here in the office for wellness exam. Auto Glass Installer Mikie present today. Diet: Eating a well balanced diet. 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 Vision:Due this year, wears glasses. Dental: No teeth. Sleep: Sleeps well no complaints. Thyroid: Takign Synthroid 50 mcg daily. Denies any difficulty swallowing, palpitations, heat/cold intolerances. BPH/UTI?: Taking Flomax 0.4 mg at bedtime. Following with urology, Grace Bhatt PA-C in [place]. Next appt next week. Bipolar: Going through [facility] psychiatry, taking Seroquel 300 mg at bedtime, [...] discussed and patient voices understanding. Kassidy Jang APRN.MILL OILER This note was partially generated using Cmxtwenty voice recognition system. Note was reviewed for accuracy. There may be minor misspellings or grammar miscues with Dragon voice recognition. documented in this encounter [facility] 12-02-2021 Miscellaneous Notes Mikie Lomas with [facility] [...] Mariam Lin LPN documented in this encounter [facility] 07-23-2021 Miscellaneous Notes This has been completed and faxed back to number below. Tatyana Carter Ma Letter printed Vini Pradhan MD Type of letter/form/fax request - celiac/gluten free diet order Form received from fax on 1 floor and placed on MD desk () for completion. Completed form needs to be faxed to [place] [employer] Developmental disabilities services & support Admin at [phone]. Route to [place] when form completed for processing documented in this encounter [facility] documented [facility] encounter [facility] Diagnosis Benign prostatic hyperplasia, unspecified whether lower urinary tract symptoms present- Primary documented in [facility] encounter [facility]* Diagnosis Intellectual disability- Primary Unspecified intellectual disabilities Balance disorder Other symptoms involving nervous and musculoskeletal systems documented in this encounter [facility] note* Diagnosis Hypothyroidism, unspecified type- Primary documented in this encounter [facility] note* Diagnosis Viral illness- Primary Unspecified viral infection, in conditions classified elsewhere and of unspecified site Cerebral palsy, unspecified type (HCC) Gait difficulty Abnormality of gait documented in this encounter [facility] note* Diagnosis Benign prostatic hyperplasia, unspecified whether lower urinary tract symptoms present- Primary documented in this encounter [facility] note* Diagnosis Wellness examination- Primary Hypothyroidism, unspecified type Bipolar 1 disorder (HCC) Bipolar I disorder, most recent episode (or current) unspecified Intellectual disability Unspecified intellectual disabilities Cerebral palsy, unspecified type (HCC) History of BPH Personal history of other specified diseases documented in this encounter [facility] note* Diagnosis Hypothyroidism, unspecified type documented in this encounter [facility] Reason for Referral Specialty Diagnoses / Procedures Referred By Moe campos Referred To Contact [facility] Diagnoses Cerebral palsy, unspecified type (HCC) Gait difficulty Procedures CONSULT TO PHYSICAL THERAPY PHYSICAL THERAPY EVALUATION HIGH COMPLEX 45 MINS Kassidy Jang, CECILY.MILL OILER [address] [place] [address] [facility] [place] [address] [place] [id number] Referral ID Status Reason Start Date Expiration Date Visits Requested Visits Authorized [id number] Pending Review Auto-Generat ed Referral 09/27/2022 09/27/2023 [...] or prosecute any alcohol or drug abuse patient.[facility] the event this information is protected by the Federal Confidentiality of Alcohol and Drug Abuse Patient Records regulations: The Federal rules restrict any use of the information to criminally investigate or prosecute any alcohol or drug abuse patient.[facility] the event this information is protected by the Federal Confidentiality of Alcohol and Drug Abuse Patient Records regulations: The Federal rules restrict any use of the information to criminally investigate or prosecute any alcohol or drug abuse patient.[facility] the event this information is protected by the Federal Confidentiality of Alcohol and Drug Abuse Patient Records regulations: The Federal rules restrict any use of the information to criminally investigate or prosecute any alcohol or drug abuse patient.[facility] the event this information is protected by the Federal Confidentiality of Alcohol and Drug Abuse Patient Records regulations: The Federal rules restrict any use of the information to criminally investigate or prosecute any alcohol or drug abuse patient.[facility] the event this information is protected by the Federal Confidentiality of Alcohol and Drug Abuse Patient Records regulations: The Federal rules restrict any use of the information to criminally investigate or prosecute any alcohol or drug abuse patient.[facility] Center[facility] the event this information is protected by the Federal Confidentiality of Alcohol and Drug Abuse Patient Records regulations: The Federal rules restrict any use of the information to criminally investigate or prosecute any alcohol or drug abuse patient.[facility] Center[facility] the event this information is protected by the Federal Confidentiality of Alcohol and Drug Abuse Patient Records regulations: The Federal rules restrict any use of the information to criminally investigate or prosecute any alcohol or drug abuse patient.[facility] Center[facility] the event this information is protected by the Federal Confidentiality of Alcohol and Drug Abuse Patient Records regulations: The Federal rules restrict any use of the information to criminally investigate or prosecute any alcohol or drug abuse patient.[facility] Center[facility] the event this information is protected by the [facility] Confidentiality of Alcohol and Drug Abuse Patient Records regulations: The Federal rules restrict any use of the information to criminally investigate or prosecute any alcohol or drug abuse patient.[facility] CenterIn the event this information is protected by the Federal Confidentiality of Alcohol and Drug Abuse Patient Records regulations: The Federal rules restrict any use of the information to criminally investigate or prosecute any alcohol or drug abuse patient.[facility] Reason for Visit (unrecogniz ed section and content) Reason Comments Physical Reason Onset Date Comments Refill Request 12/02/2021 Reason Comments Follow Up Reason Comments Orders Reason Onset Date Comments Refill Request 03/26/2022 Reason Comments Acute Visit Sore throat Reason Comments Results Reason Comments Follow Up Benign Prostatic Hypertrophy Care Teams (unrecognized sec tion and content) Bridges And Buildings Supervisor Relationship Specialty Start Date End Date Vini Pradhan MD [address] [place], [place] [id number] PCP - General Family Medicine 11/05/10 Bridges And Buildings Supervisor Relationship Specialty Start Date End Date Vini Pradhan MD [address] [place] [address] PCP - General Family Medicine 11/05/10 Bridges And Buildings Supervisor Relationship Specialty Start Date End Date Vini Pradhan MD [address] [place] [address] PCP - General Family Medicine 11/05/10 Bridges And Buildings Supervisor Relationship Specialty Start Date End Date Vini Pradhan MD [address] [place] [address] PCP - General Family Medicine 11/05/10 Bridges And Buildings Supervisor Relationship Specialty Start Date End Date Vini Pradhan MD [address] [place] [address] PCP - General Family Medicine 11/05/10 Bridges And Buildings Supervisor Relationship Specialty Start Date End Date Vini Pradhan MD [address] [place] [address] PCP - General Family Medicine 11/05/10 Bridges And Buildings Supervisor Relationship Specialty Start Date End Date Vini Pradhan MD [address] [place] [address] PCP - General Family Medicine 11/05/10 [employer] Supervisor Relationship Specialty Start Date End Date Vini Pradhan MD [address] [place] [address] PCP - General Family Medicine 11/05/10 [employer] Build[employer] Supervisor Relationship Specialty Start Date End Date Vini Pradhan MD [address] [place] [address] PCP - General Family Medicine 11/05/10 (unrecognized sect ion and content) No Status Records FoundNo Status Records Found INFORMATION SOURCE (unrecogn ized section and content) DATE CREATED AUTHOR AUTHOR'S ORGANIZ ATION 02/20/2023 [facility] FOR RECORDS PERTAINING TO PATIENTS WHO ARE [...] BE BASED ON THE PRIMARY CLINICAL RECORDS. [facility] [employer] provides no warranty or guarantee of the accuracy or completeness of information in this document.
[2023-03-11] MEDS: Divalproex Sodium 250 MG Tablet PO (17:38)
--- OUTSIDE RECORDS SUMMARY | 2023-03-11 17:38 | XMS RPT_ITS | CCD ---
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; Translations: [Encounter for long-term [...] 12:54-0500 Body height 156.2 cm Juan Rambo SLIP INJECTOR AND APPLICATOR.CHAMFERING MACHINE OPERATOR Work Phone: [facility] 01-11-2023 12:54-0500 Body temperature 96.91 [degF] Juan Rambo SLIP INJECTOR AND APPLICATOR.CHAMFERING MACHINE OPERATOR Work Phone: [facility] 01-11-2023 12:54-0500 Body weight 54.61 kg Juan Rambo SLIP INJECTOR AND APPLICATOR.CHAMFERING MACHINE OPERATOR Work Phone: [facility] 01-11-2023 12:54-0500 Diastolic blood pressure 73 mm[Hg] Juan Rambo SLIP INJECTOR AND APPLICATOR.CHAMFERING MACHINE OPERATOR Work Phone: [facility] 01-11-2023 12:54-0500 Heart rate 84 /min Juan Rambo SLIP INJECTOR AND APPLICATOR.CHAMFERING MACHINE OPERATOR Work Phone: [facility] 01-11-2023 12:54-0500 Respiratory rate 16 /min Juan Rambo SLIP INJECTOR AND APPLICATOR.CHAMFERING MACHINE OPERATOR Work Phone: [facility] 01-11-2023 12:54-0500 SaO2% (BldA) [Mass fraction] 97 % Juan Rambo SLIP INJECTOR AND APPLICATOR.CHAMFERING MACHINE OPERATOR Work Phone: [facility] 01-11-2023 12:54-0500 Systolic blood pressure 107 mm[Hg] Juan Rambo SLIP INJECTOR AND APPLICATOR.CHAMFERING MACHINE OPERATOR Work Phone: [facility] 12-28-2022 10:03-0500 Body height 152.4 cm Grace Bhatt PA-C Work Phone: [facility] 12-28-2022 10:03-0500 Body temperature 98.01 [degF] Grace Bhatt PA-C Work Phone: [facility] 12-28-2022 10:03-0500 Body weight 54.7 kg Grace Bhatt PA-C Work Phone: [facility] 12-28-2022 10:03-0500 Diastolic blood pressure 78 mm[Hg] Grace Bhatt PA-C Work Phone: [facility] 12-28-2022 10:03-0500 Heart rate 84 /min Grace Bhtat PA-C Work Phone: [facility] 12-28-2022 10:03-0500 Respiratory rate 14 /min Grace Bhatt PA-C Work Phone: [facility] 12-28-2022 10:03-0500 SaO2% (BldA) [Mass fraction] 98 % Grace Bhatt PA-C Work Phone: [facility] 12-28-2022 10:03-0500 Systolic blood pressure 102 mm[Hg] Grace Bhatt PA-C Work Phone: [facility] 09-27-2022 12:41-0400 Body temperature 97.2 [degF] Kassidy Tannhof SLIP INJECTOR AND APPLICATOR.CHAMFERING MACHINE OPERATOR Work Phone: [facility] 09-27-2022 12:41-0400 Body weight 50.8 kg Kassidy Tannhof SLIP INJECTOR AND APPLICATOR.CHAMFERING MACHINE OPERATOR Work Phone: [facility] 09-27-2022 12:41-0400 Diastolic blood pressure 60 mm[Hg] Kassidy Tannhof SLIP INJECTOR AND APPLICATOR.CHAMFERING MACHINE OPERATOR Work Phone: [facility] 09-27-2022 12:41-0400 Heart rate 77 /min Kassidy Tannhof SLIP INJECTOR AND APPLICATOR.CHAMFERING MACHINE OPERATOR Work Phone: [facility] 09-27-2022 12:41-0400 Respiratory rate 16 /min Kassidy Tannhof SLIP INJECTOR AND APPLICATOR.CHAMFERING MACHINE OPERATOR Work Phone: [facility] 09-27-2022 12:41-0400 SaO2% (BldA) [Mass fraction] 94 % Kassidy Tannhof SLIP INJECTOR AND APPLICATOR.CHAMFERING MACHINE OPERATOR Work Phone: [facility] 09-27-2022 12:41-0400 Systolic blood pressure 90 mm[Hg] Kassidy Tannhof SLIP INJECTOR AND APPLICATOR.CHAMFERING MACHINE OPERATOR Work Phone: [facility] 12-22-2021 11:06-0500 Body height 149.9 cm Grace Bhatt PA-C Work Phone: [facility] 12-22-2021 11:06-0500 Body temperature 96.91 [degF] Grace Bhatt PA-C Work Phone: [facility] 12-22-2021 11:06-0500 Body weight 53.52 kg Grace Bhatt PA-C Work Phone: [facility] 12-22-2021 11:06-0500 Diastolic blood pressure 70 mm[Hg] Grace Bhatt PA-C Work Phone: [facility] 12-22-2021 11:06-0500 Heart rate 86 /min Grace Bhatt PA-C Work Phone: [facility] 12-22-2021 11:06-0500 Respiratory rate 14 /min Grace Bhatt PA-C Work Phone: [facility] 12-22-2021 11:06-0500 SaO2% (BldA) [Mass fraction] 99 % Grace Bhatt PA-C Work Phone: [facility] 12-22-2021 11:06-0500 Systolic blood pressure 104 mm[Hg] Grace Bhatt PA-C Work Phone: [facility] 12-14-2021 10:02-0500 Body height 152 cm Kassidy Tannhof SLIP INJECTOR AND APPLICATOR.CHAMFERING MACHINE OPERATOR Work Phone: [facility] 12-14-2021 10:02-0500 Body weight 53.07 kg Kassidy Tannhof SLIP INJECTOR AND APPLICATOR.CHAMFERING MACHINE OPERATOR Work Phone: [facility] 12-14-2021 10:02-0500 Diastolic blood pressure 70 mm[Hg] Kassidy Tannhof SLIP INJECTOR AND APPLICATOR.CHAMFERING MACHINE OPERATOR Work Phone: [facility] 12-14-2021 10:02-0500 Heart rate 78 /min Kassidy Tannhof SLIP INJECTOR AND APPLICATOR.CHAMFERING MACHINE OPERATOR Work Phone: [facility] 12-14-2021 10:02-0500 Respiratory rate 16 /min Kassidy Tannhof SLIP INJECTOR AND APPLICATOR.CHAMFERING MACHINE OPERATOR Work Phone: [facility] 12-14-2021 10:02-0500 SaO2% (BldA) [Mass fraction] 98 % Kassidy Tannhof SLIP INJECTOR AND APPLICATOR.CHAMFERING MACHINE OPERATOR Work Phone: [facility] 12-14-2021 10:02-0500 Systolic blood pressure 100 mm[Hg] Kassidy Jang APRN.CNP Work Phone: [facility] Encounters Encounter Date Encounter Type Care Provider Facility Start: 02-16-2023 End: 02-17-2023 ambulatory VINI PRADHAN Facility:[facility] Start: 01-12-2023 Telephone encounter Juan rosa APRN.CNP Work Phone: [facility] [place] Procedures Date Procedure Procedure Detail Performing Clinician Start: 12-29-2022 Haloperidol decanoate inj Asim Brown Start: 12-29-2022 Psysoc rehab svc, pe r 15 min Asim Brown Start: 12-13-2022 Lipid 1996 panel - S miguel or Plasma Juan Nguyen APRN.CHAMFERING MACHINE OPERATOR Work Phone: Start: 08-01-2018 Adult depression scr eening assessment Vini Pradhan MD Work Phone: Plan of Treatment Date Care Activity Detail Author Start: 12-14-2027 Lipid 1996 panel - S miguel or Plasma Lipid Screening [facility] Start: 08-12-2026 LIPID SCREEN LIPID SCREEN [facility] Start: 12-13-2025 Diabetes Screening Diabetes Screenin g [facility] Start: 05-15-2025 LIPID SCREEN LIPID SCREEN [facility] Start: 08-12-2024 DIABETES SCREEN DIABETES SCREEN [facility] Start: 01-12-2024 Annual PCP Team Stem Shaper inge Disease Visit Annual PCP Team Chronic Disease Visit [facility] Start: 01-12-2024 Covid-19 Vaccine (#1) Covid-19 Vacci ne (#1) [facility] Immunizations Immunization Date Immunization Notes Care Provider Fa cilimolly 12-08-2017 influenza, injectabl e, quadrivalent, contains preservative Vini Pradhan MD Work Phone: [facility] 12-08-2017 influenza virus vaccine, unspecified formulation Juan Nguyen APRN.CHAMFERING MACHINE OPERATOR Work Phone: [facility] Payers Date Payer Category Payer Medicaid [place] [id number] 2012-Present [phone] [address] [place] [address] Medicaid [id number] 2012 [place] [id number] 2012-Present [phone] [address] [place] [id number] Medicaid [id number] 2012 Medicaid [id number] 1970 Unknown [id number] Social History Date Type Detail Facility Start: 05-02-2017 End: 12-14-2021 Tobacco smoking status NHIS Never smoked tobacco [facility] Start: 08-13-2020 End: 09-27-2022 Alcohol intake Current non-drinker of alcohol (finding) [facility] Start: 1970 Sex Assigned At Not on file [facility] Start: 05-02-2017 End: 12-14-2021 Tobacco use and exposure Smokeless tobacco non-user [facility] Start: 12-04-2021 End: 12-22-2021 Exposure to SARS-CoV-2 (event) Not sure [facility] Start: 09-27-2022 End: 01-11-2023 History of Social function [facility] Start: 09-27-2022 End: 01-11-2023 Tobacco use panel [facility] Adult Depression Scr eening Assessment 0 [facility] Start: 12-28-2022 End: 01-11-2023 Alcohol intake Ex-drinker (finding) [facility] Clinical Notes 07-23-2021 to 02-16-2023 Telephone Encounter - Tram Suarez RN - 01/12/2023 8:56 AM ESTTelephone Encounter - Juan Nguyen APRN.CNP - 01/12/2023 8:25 AM Juan Arriola APRN.CHAMFERING MACHINE OPERATOR - 01/11/2023 1:00 PM EST Note Date & Type Note Facility 01-10-2024 Note HNO ID: [id number] Author: KASSIDY JANG APRN.CHAMFERING MACHINE OPERATOR Service: ? Author Type: Nurse Practitioner Type: Progress Notes Filed: 02/16/2023 11:02 Note Text: This is a 52 year old male who presents today with: Patient presents with: Follow Up: Hospital follow up HISTORY OF PRESENT ILLNESS: Saad Alvarez is a 52 year old male. Patient presents with: Follow Up: Hospital follow up HOSPITAL/ER FOLLOW UP: manager hris present Reason for visit: Agitation Which facility: [...] treatment plan and (more content not included)... [facility] 01-12-2023 Miscellaneous Notes Pts oil and gas field technician Mikie was called and is notified of providers results and instructions. She voices understanding. Tram Suarez RN Please let the patient/caregiver know that his TSH was normal. I sent in a refill of his levothyroxine for a year. Juan Nguyen APRN.LUIS MANUEL documented in this encounter [facility] 01-11-2023 Note HNO ID: [id number] Author: Juan Nguyen APRN.LUIS MANUEL Service: ? [...] - 144 mmol/L (more content not included)... [facility] 01-11-2023 History of Presen t illness [...] Z87.438 -Continue following with urology Juan Nguyen APRN.CHAMFERING MACHINE OPERATOR RTO in 12 months, sooner if needed. This note was partly generated using Compass voice recognition dictation and may contain some misspelled or inaccurate words missed on review. documented in this encounter [facility] 12-28-2022 Note HNO ID: [id number] Author: Grace Bhatt PA-C Service: ? Author Type: Physician Recycling Attendant Type: Progress Notes Filed: 12/28/2022 10:30 AM Note Text: [facility] ESTABLISHED PATIENT CLINIC NOTE [...] as prescribed > Flomax refills sent to [facility] > 1 year Appt w/ BMONICA Richardson MT, FCO for annual follow-up and refills. MONICA Zee MT, FCO [facility] 12-28-2022 Note HNO ID: [id number] Author: Mariam Lin LPN Service: ? Author [...] in the bathroom trying. Mikie Lomas, social security assessor for patient, states he often takes a long time to go. Results of scan: 4 mL The patient tolerated the procedure well. Plan: Appointment with Grace. [facility] 12-28-2022 Instructions Grace Bhatt PA-C - 12/28/2022 10:29 AM EST > 1 year Appt w/ B. MONICA Bhatt, MTFCO for annual follow-up and refills. documented in this encounter [facility] 12-28-2022 History of Presen t illness Narrative Images from the original note were not included. [facility] [...] as prescribed > Flomax refills sent to [facility] > 1 year Appt w/ BMONICA Richardson, ICRO, FCO for annual follow-up and refills. MONICA [...] in the bathroom trying. Mikie Lomas, social security assessor for patient, states he often takes a long time to go. Results of scan: 4 mL The patient tolerated the procedure well. Plan: Appointment with Grace. documented in this encounter [facility] 12-24-2022 Miscellaneous Notes Spoke with Mikie, patient care technician instructor, and given provider's message below with [...] to get his TSH drawn. Juan Nguyen APRN.CHAMFERING MACHINE OPERATOR documented in this encounter [facility] 09-27-2022 Note HNO ID: [id number] Author: Kassidy Jang APRN.LUIS MANUEL Service: ? [...] discussed and patient voices understanding. Kassidy Jang APRN.CHAMFERING MACHINE OPERATOR This note was partially generated using Compass (more content not included)... [facility] 09-27-2022 Instructions Kassidy Jang APRN.CHAMFERING MACHINE OPERATOR - 09/27/2022 1:15 PM EDT Symptoms consistent with viral illness, continue supportive care at home. Stay well hydrated. Consult placed for physical therapy to help with gait. Follow up as needed. documented in this encounter [facility] 09-27-2022 History of Presen t illness [...] APRN.CNP This note was partially generated using Compass voice recognition system. Note was reviewed for accuracy. There may be minor misspellings or grammar miscues with Compass voice recognition. documented in this encounter [facility] 03-26-2022 Miscellaneous Notes The following approved [...] Barby Gunn LPN documented in this encounter [facility] 01-25-2022 Miscellaneous Notes Order sent to Tony Pradhan MD Sully from [facility] calls and states that patient is needing a new Quad Cane. Sully asking if provider can write an order for Quad Cane? Patient uses [facility]. Please review and advise, Akila Payan RN documented in this encounter [facility] 12-22-2021 History of Presen t illness Narrative Images from the original note were not included. [facility] [...] Abs Lymph 2.22 1.00 - 4.00 k/uL Iroquois% 10.7 % Abs Iroquois 0.66 <0.87 k/uL Eosin% 3.1 % Abs [...] Appointment with Grace. documented in this encounter [facility] 12-14-2021 Instructions Kassidy Jang APRN.LUIS MANUEL - 12/14/2021 10:15 AM EST Get repeat labs in 1 year prior to next visit. Keep up coming appointments with specialists. Continue to take all medication as prescribed. Follow up in 1 year or sooner as needed. Health Promotion: - Eat healthy -- go to [employer]gov to get started - Have a yearly [...] - Wear sunscreen documented in this encounter [facility] 12-14-2021 History of Presen t illness Narrative This is a 51 year old male who presents today with: Patient presents with: Physical HISTORY OF PRESENT ILLNESS: Saad Alvarez is a 51 year old male. Patient presents with: Physical Here in the office for wellness exam. Weed Thinner Mikie present today. Diet: Eating a well balanced diet. 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 Vision:Due this year, wears glasses. Dental: No teeth. Sleep: Sleeps well no complaints. Thyroid: Takign Synthroid 50 mcg daily. Denies any difficulty swallowing, palpitations, heat/cold intolerances. BPH/UTI?: Taking Flomax 0.4 mg at bedtime. Following with urology, Grace Bhatt PA-C in [place]. Next appt next week. Bipolar: Going through [facility] psychiatry, taking Seroquel 300 mg at [...] discussed and patient voices understanding. Kassidy Jang APRN.CHAMFERING MACHINE OPERATOR This note was partially generated using Compass voice recognition system. Note was reviewed for accuracy. There may be minor misspellings or grammar miscues with Dragon voice recognition. documented in this encounter [facility] 12-02-2021 Miscellaneous Notes Mikie Lomas with [...] Mariam Lin LPN documented in this encounter [facility] 07-23-2021 Miscellaneous Notes This has been [...] Developmental disabilities services & support Admin at [phone]. Route to [place] when form completed for processing documented in this encounter [facility] Diagnosis Benign prostatic hyperplasia, unspecified whether lower urinary tract symptoms present- Primary documented in this encounter [facility] note* Diagnosis Intellectual disability- Primary Unspecified intellectual disabilities Balance disorder Other symptoms involving nervous and musculoskeletal systems documented in this encounter [facility] note* Diagnosis Hypothyroidism, unspecified type- Primary documented in this encounter [facility] note* Diagnosis Viral illness- Primary Unspecified viral infection, in conditions classified elsewhere and of unspecified site Cerebral palsy, unspecified type (HCC) Gait difficulty Abnormality of gait documented in this encounter [facility] note* Diagnosis Benign prostatic hyperplasia, unspecified whether lower urinary tract symptoms present- Primary documented in this encounter [facility] note* Diagnosis Wellness examination- Primary Hypothyroidism, unspecified type Bipolar 1 disorder (HCC) Bipolar I disorder, most recent episode (or current) unspecified Intellectual disability Unspecified intellectual disabilities Cerebral palsy, unspecified type (HCC) History of BPH Personal history of other specified diseases documented in this encounter [facility] note* Diagnosis Hypothyroidism, unspecified type documented in this encounter [facility] Reason for Referral Specialty Diagnoses / Procedures Referred By Moe campos Referred To Contact [facility] Diagnoses Cerebral palsy, unspecified type (HCC) Gait difficulty Procedures CONSULT TO PHYSICAL THERAPY PHYSICAL THERAPY EVALUATION HIGH COMPLEX 45 MINS Kassidy Jang, CECILY.CHAMFERING MACHINE OPERATOR [address] [place] [address] [facility] [address] [place] [id number] Referral ID Status Reason Start Date Expiration Date Visits Requested Visits Authorized [id number] Pending Review Auto-Generat ed Referral 09/27/2022 09/27/2023 [...] or prosecute any alcohol or drug abuse patient.[facility] the event this information is protected by the Federal Confidentiality of Alcohol and Drug Abuse Patient Records regulations: The Federal rules restrict any use of the information to criminally investigate or prosecute any alcohol or drug abuse patient.[facility] the event this information is protected by the Federal Confidentiality of Alcohol and Drug Abuse Patient Records regulations: The Federal rules restrict any use of the information to criminally investigate or prosecute any alcohol or drug abuse patient.[facility] the event this information is protected by the Federal Confidentiality of Alcohol and Drug Abuse Patient Records regulations: The Federal rules restrict any use of the information to criminally investigate or prosecute any alcohol or drug abuse patient.[facility] HospitalIn the event this information is protected by the Federal Confidentiality of Alcohol and Drug Abuse Patient Records regulations: The Federal rules restrict any use of the information to criminally investigate or prosecute any alcohol or drug abuse patient.[facility] the event this information is protected by the Federal Confidentiality of Alcohol and Drug Abuse Patient Records regulations: The Federal rules restrict any use of the information to criminally investigate or prosecute any alcohol or drug abuse patient.[facility] HospitalIn the event this information is protected by the Federal Confidentiality of Alcohol and Drug Abuse Patient Records regulations: The Federal rules restrict any use of the information to criminally investigate or prosecute any alcohol or drug abuse patient.[facility] the event this information is protected by the Federal Confidentiality of Alcohol and Drug Abuse Patient Records regulations: The Federal rules restrict any use of the information to criminally investigate or prosecute any alcohol or drug abuse patient.[facility] Hospital[facility] the event this information is protected by the Federal Confidentiality of Alcohol and Drug Abuse Patient Records regulations: The Federal rules restrict any use of the information to criminally investigate or prosecute any alcohol or drug abuse patient.[facility] HospitalIn the event this information is protected by the [facility] Confidentiality of Alcohol and Drug Abuse Patient Records regulations: The Federal rules restrict any use of the information to criminally investigate or prosecute any alcohol or drug abuse patient.[facility] Hospital[facility] the event this information is protected by the Federal Confidentiality of Alcohol and Drug Abuse Patient Records regulations: The Federal rules restrict any use of the information to criminally investigate or prosecute any alcohol or drug abuse patient.[facility] Reason for Visit (unrecogniz ed section and content) Reason Comments Physical Reason Onset Date Comments Refill Request 12/02/2021 Reason Comments Follow Up Reason Comments Orders Reason Onset Date Comments Refill Request 03/26/2022 Reason Comments Acute Visit Sore throat Reason Comments Results Reason Comments Follow Up Benign Prostatic Hypertrophy Care Teams (unrecognized sec tion and content) Dna Analyst Relationship Specialty Start Date End Date Vini Pradhan MD [address] [place], [place] [id number] PCP - General Family Medicine 11/05/10 Dna Analyst Relationship Specialty Start Date End Date Vini Pradhan MD [address] [place] [address] PCP - General Family Medicine 11/05/10 Dna Analyst Relationship Specialty Start Date End Date Vini Pradhan MD [address] [place] [address] PCP - General Family Medicine 11/05/10 Dna Analyst Relationship Specialty Start Date End Date Vini Pradhan MD [address] [place] [address] PCP - General Family Medicine 11/05/10 Dna Analyst Relationship Specialty Start Date End Date Vini Pradhan MD [address] [place] [address] PCP - General Family Medicine 11/05/10 Dna Analyst Relationship Specialty Start Date End Date Vini Pradhan MD [address] [place] [address] PCP - General Family Medicine 11/05/10 Dna Analyst Relationship Specialty Start Date End Date Vini Pradhan MD [address] [place] [address] PCP - General Family Medicine 11/05/10 Dna Analyst Relationship Specialty Start Date End Date Vini Pradhan MD [address] [place] [address] PCP - General Family Medicine 11/05/10 Dna Analyst Relationship Specialty Start Date End Date Vini Pradhan MD [address] [place] [address] PCP - General Family Medicine 11/05/10 (unrecognized sect ion and content) No Status Records FoundNo Status Records Found INFORMATION SOURCE (unrecogn ized section and content) DATE CREATED AUTHOR AUTHOR'S ORGANIZ ATION 02/20/2023 [facility] FOR RECORDS PERTAINING TO PATIENTS WHO [...] BE BASED ON THE PRIMARY CLINICAL RECORDS. [facility] [employer] provides no warranty or guarantee of the accuracy or completeness of information in this document.
[2023-03-11] MEDS: Tamsulosin HCl 0.4 MG Capsule 0.400000000000000022 MG PO (21:19)
[2023-03-11] MEDS: Benztropine 2 MG Tablet PO (21:19)
[2023-03-11] MEDS: Divalproex Sodium 250 MG Tablet 1000 MG PO (21:19)
[2023-03-11] MEDS: QUEtiapine 100 MG Tablet 300 MG PO (21:19)
[2023-03-11] MEDS: Docusate Sodium 100 MG Capsule PO (21:19)
[2023-03-12 03:00] VITALS: BP 133/94; PULSE 53; RESP 17; TEMP 36.8; O2SAT 96
[2023-03-12 03:22] VITALS: BP 133/94; PULSE 53; RESP 18; TEMP 36.8; O2SAT 97
[2023-03-12] MEDS: Levothyroxine 50 MCG Tablet PO (04:46)
[2023-03-12] MEDS: 0.9% Normal Saline (1000mL) 1,000 ML 150 ML IV (04:47)
--- OUTSIDE RECORDS SUMMARY | 2023-03-12 05:45 | XMS RPT_ITS | CCD ---
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; Translations: [Encounter for long-term [...] 12:54-0500 Body height 156.2 cm Juan Rambo ASSISTANT PROFESSOR.LICENSE EXAMINER Work Phone: [facility] 01-11-2023 12:54-0500 Body temperature 96.91 [degF] Juan Rambo ASSISTANT PROFESSOR.LICENSE EXAMINER Work Phone: [facility] 01-11-2023 12:54-0500 Body weight 54.61 kg Juan Rambo ASSISTANT PROFESSOR.LICENSE EXAMINER Work Phone: [facility] 01-11-2023 12:54-0500 Diastolic blood pressure 73 mm[Hg] Juan Rambo ASSISTANT PROFESSOR.LICENSE EXAMINER Work Phone: [facility] 01-11-2023 12:54-0500 Heart rate 84 /min Juan Rambo ASSISTANT PROFESSOR.LICENSE EXAMINER Work Phone: [facility] 01-11-2023 12:54-0500 Respiratory rate 16 /min Juan Rambo ASSISTANT PROFESSOR.LICENSE EXAMINER Work Phone: [facility] 01-11-2023 12:54-0500 SaO2% (BldA) [Mass fraction] 97 % Juan Rambo ASSISTANT PROFESSOR.LICENSE EXAMINER Work Phone: [facility] 01-11-2023 12:54-0500 Systolic blood pressure 107 mm[Hg] Juan Rambo ASSISTANT PROFESSOR.LICENSE EXAMINER Work Phone: [facility] 12-28-2022 10:03-0500 Body height 152.4 cm Grace Bhatt PA-C Work Phone: [facility] 12-28-2022 10:03-0500 Body temperature 98.01 [degF] Grace Bhatt PA-C Work Phone: [facility] 12-28-2022 10:03-0500 Body weight 54.7 kg Grace Bhatt PA-C Work Phone: [facility] 12-28-2022 10:03-0500 Diastolic blood pressure 78 mm[Hg] Grace Bhatt PA-C Work Phone: [facility] 12-28-2022 10:03-0500 Heart rate 84 /min Grace Bhatt PA-C Work Phone: [facility] 12-28-2022 10:03-0500 Respiratory rate 14 /min Grace Bhatt PA-C Work Phone: [facility] 12-28-2022 10:03-0500 SaO2% (BldA) [Mass fraction] 98 % Grace Bhatt PA-C Work Phone: [facility] 12-28-2022 10:03-0500 Systolic blood pressure 102 mm[Hg] Grace Bhatt PA-C Work Phone: [facility] 09-27-2022 12:41-0400 Body temperature 97.2 [degF] Kassidy Tannhof ASSISTANT PROFESSOR.LICENSE EXAMINER Work Phone: [facility] 09-27-2022 12:41-0400 Body weight 50.8 kg Kassidy Tannhof ASSISTANT PROFESSOR.LICENSE EXAMINER Work Phone: [facility] 09-27-2022 12:41-0400 Diastolic blood pressure 60 mm[Hg] Kassidy Tannhof ASSISTANT PROFESSOR.LICENSE EXAMINER Work Phone: [facility] 09-27-2022 12:41-0400 Heart rate 77 /min Kassidy Tannhof ASSISTANT PROFESSOR.LICENSE EXAMINER Work Phone: [facility] 09-27-2022 12:41-0400 Respiratory rate 16 /min Kassidy Tannhof ASSISTANT PROFESSOR.LICENSE EXAMINER Work Phone: [facility] 09-27-2022 12:41-0400 SaO2% (BldA) [Mass fraction] 94 % Kassidy Tannhof ASSISTANT PROFESSOR.LICENSE EXAMINER Work Phone: [facility] 09-27-2022 12:41-0400 Systolic blood pressure 90 mm[Hg] Kassidy Tannhof ASSISTANT PROFESSOR.LICENSE EXAMINER Work Phone: [facility] 12-22-2021 11:06-0500 Body height 149.9 cm Grace Bhatt PA-C Work Phone: [facility] 12-22-2021 11:06-0500 Body temperature 96.91 [degF] Grace Bhatt PA-C Work Phone: [facility] 12-22-2021 11:06-0500 Body weight 53.52 kg Grace Bhatt PA-C Work Phone: [facility] 12-22-2021 11:06-0500 Diastolic blood pressure 70 mm[Hg] Grace Bhatt PA-C Work Phone: [facility] 12-22-2021 11:06-0500 Heart rate 86 /min Grace Bhatt PA-C Work Phone: [facility] 12-22-2021 11:06-0500 Respiratory rate 14 /min Grace Bhatt PA-C Work Phone: [facility] 12-22-2021 11:06-0500 SaO2% (BldA) [Mass fraction] 99 % Grace Bhatt PA-C Work Phone: [facility] 12-22-2021 11:06-0500 Systolic blood pressure 104 mm[Hg] Grace Bhatt PA-C Work Phone: [facility] 12-14-2021 10:02-0500 Body height 152 cm Kassidy Tannhof ASSISTANT PROFESSOR.LICENSE EXAMINER Work Phone: [facility] 12-14-2021 10:02-0500 Body weight 53.07 kg Kassidy Tannhof ASSISTANT PROFESSOR.LICENSE EXAMINER Work Phone: [facility] 12-14-2021 10:02-0500 Diastolic blood pressure 70 mm[Hg] Kassidy Tannhof ASSISTANT PROFESSOR.LICENSE EXAMINER Work Phone: [facility] 12-14-2021 10:02-0500 Heart rate 78 /min Kassidy Tannhof ASSISTANT PROFESSOR.LICENSE EXAMINER Work Phone: [facility] 12-14-2021 10:02-0500 Respiratory rate 16 /min Kassidy Tannhof ASSISTANT PROFESSOR.LICENSE EXAMINER Work Phone: [facility] 12-14-2021 10:02-0500 SaO2% (BldA) [Mass fraction] 98 % Kassidy Tannhof ASSISTANT PROFESSOR.LICENSE EXAMINER Work Phone: [facility] 12-14-2021 10:02-0500 Systolic blood pressure 100 mm[Hg] Kassidy Jang APRN.CNP Work Phone: [facility] Encounters Encounter Date Encounter Type Care Provider Facility Start: 02-16-2023 End: 02-17-2023 ambulatory VINI PRADHAN Facility:[facility] Start: 01-12-2023 Telephone encounter Juan rosa APRN.CNP Work Phone: [facility] Procedures Date Procedure Procedure Detail Performing Clinician Start: 12-29-2022 Haloperidol decanoate inj Asim Brown Start: 12-29-2022 Psysoc rehab svc, pe r 15 min Asim Brown Start: 12-13-2022 Lipid 1996 panel - S miguel or Plasma Juan Nguyen APRN.LICENSE EXAMINER Work Phone: Start: 08-01-2018 Adult depression scr eening assessment Vini Pradhan MD Work Phone: Plan of Treatment Date Care Activity Detail Author Start: 12-14-2027 Lipid 1996 panel - S miguel or Plasma Lipid Screening [facility] Start: 08-12-2026 LIPID SCREEN LIPID SCREEN [facility] Start: 12-13-2025 Diabetes Screening Diabetes Screenin g [facility] Start: 05-15-2025 LIPID SCREEN LIPID SCREEN [facility] Start: 08-12-2024 DIABETES SCREEN DIABETES SCREEN [facility] Start: 01-12-2024 Annual PCP Team Heel Slicker inge Disease Visit Annual PCP Team Chronic Disease Visit [facility] Start: 01-12-2024 Covid-19 Vaccine (#1) Covid-19 Vacci ne (#1) [facility] Immunizations Immunization Date Immunization Notes Care Provider Fa cilimolly 12-08-2017 influenza, injectabl e, quadrivalent, contains preservative Vini Pradhan MD Work Phone: [facility] 12-08-2017 influenza virus vaccine, unspecified formulation Juan Nguyen APRN.LICENSE EXAMINER Work Phone: [facility] Payers Date Payer Category [place] [id number] 2012-Present [phone] [address] [place] [address] Medicaid [id number] 2012 [place] [id number] 2012-Present [phone] [address] [place] [id number] Medicaid [id number] 2012 Medicaid [id number] 1970 Unknown [id number] Social History Date Type Detail Facility Start: 05-02-2017 End: 12-14-2021 Tobacco smoking status NHIS Never smoked tobacco [facility] Start: 08-13-2020 End: 09-27-2022 Alcohol intake Current non-drinker of alcohol (finding) [facility] Start: 1970 Sex Assigned At Not on file [facility] Start: 05-02-2017 End: 12-14-2021 Tobacco use and exposure Smokeless tobacco non-user [facility] Start: 12-04-2021 End: 12-22-2021 Exposure to SARS-CoV-2 (event) Not sure [facility] Start: 09-27-2022 End: 01-11-2023 History of Social function [facility] Start: 09-27-2022 End: 01-11-2023 Tobacco use panel [facility] Adult Depression Scr eening Assessment 0 [facility] Start: 12-28-2022 End: 01-11-2023 Alcohol intake Ex-drinker (finding) [facility] Clinical Notes 07-23-2021 to 02-16-2023 Telephone Encounter - Tram Suarez RN - 01/12/2023 8:56 AM ESTTelephone Encounter - Juan Nguyen APRN.CNP - 01/12/2023 8:25 AM Juan Arriola APRN.LICENSE EXAMINER - 01/11/2023 1:00 PM EST Note Date & Type Note Facility 01-10-2024 Note HNO ID: [id number] Author: KASSIDY JANG APRN.LICENSE EXAMINER Service: ? Author Type: Nurse Practitioner Type: Progress Notes Filed: 02/16/2023 11:02 Note Text: This is a 52 year old male who presents today with: Patient presents with: Follow Up: Hospital follow up HISTORY OF PRESENT ILLNESS: Saad Alvarez is a 52 year old male. 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 [facility] 01-12-2023 Miscellaneous Notes Pts title one teacher Mikie was called and is notified of providers results and instructions. She voices understanding. Tram Suarez RN Please let the patient/caregiver know that his TSH was normal. I sent in a refill of his levothyroxine for a year. Juan Nguyen APRN.LUIS MANUEL documented in this encounter [facility] 01-11-2023 Note HNO ID: [id number] Author: Juan Nguyen APRN.LUIS MANUEL Service: ? [...] - 144 mmol/L (more content not included)... [facility] 01-11-2023 History of Presen t illness [...] Z87.438 -Continue following with urology Juan Nguyen APRN.LICENSE EXAMINER RTO in 12 months, sooner if needed. This note was partly generated using [employer] voice recognition dictation and may contain some misspelled or inaccurate words missed on review. documented in this encounter [facility] 12-28-2022 Note HNO ID: [id number] Author: Grace Bhatt PA-C Service: ? Author Type: Physician Canvas Marker Type: Progress Notes Filed: 12/28/2022 10:30 AM Note Text: [facility] ESTABLISHED PATIENT CLINIC NOTE [...] as prescribed > Flomax refills sent to [facility] > 1 year Appt w/ BMONICA Richardson MT, FCO for annual follow-up and refills. MONICA Zee MT, FCO [facility] 12-28-2022 Note HNO ID: [id number] Author: Mariam Lin LPN Service: ? Author [...] the procedure well. Plan: Appointment with Grace. [facility] 12-28-2022 Instructions Grace Bhatt PA-C - 12/28/2022 10:29 AM EST > 1 year Appt w/ B. MONICA Bhatt, MTFCO for annual follow-up and refills. documented in this encounter [facility] 12-28-2022 History of Presen t illness Narrative Images from the original note were not included. [facility] [...] as prescribed > Flomax refills sent to [facility] > 1 year Appt w/ BMONICA [...] Appointment with Grace. documented in this encounter [facility] 12-24-2022 Miscellaneous Notes Spoke with Mikie, resident care aid, and given provider's message below with verbalized [...] to get his TSH drawn. Juan Nguyen APRN.LICENSE EXAMINER documented in this encounter [facility] 09-27-2022 Note HNO ID: [id number] Author: Kassidy Jang APRN.LUIS MANUEL Service: ? [...] discussed and patient voices understanding. Kassidy Jang APRN.LICENSE EXAMINER This note was partially generated using [employer] (more content not included)... [facility] 09-27-2022 Instructions Kassidy Jang APRN.LICENSE EXAMINER - 09/27/2022 1:15 PM EDT Symptoms consistent with viral illness, continue supportive care at home. Stay well hydrated. Consult placed for physical therapy to help with gait. Follow up as needed. documented in this encounter [facility] 09-27-2022 History of Presen t illness [...] APRN.CNP This note was partially generated using [employer] voice recognition system. Note was reviewed for accuracy. There may be minor misspellings or grammar miscues with [employer] voice recognition. documented in this encounter [facility] 03-26-2022 Miscellaneous Notes The following approved [...] Barby Gunn LPN documented in this encounter [facility] 01-25-2022 Miscellaneous Notes Order sent to Tony Pradhan MD Sully from [facility] calls and states that patient is needing a new Quad Cane. Sully asking if provider can write an order for Quad Cane? Patient uses [facility]. Please review and advise, Akila Payan RN documented in this encounter [facility] 12-22-2021 History of Presen t illness Narrative Images from the original note were not included. [facility] [...] Abs Lymph 2.22 1.00 - 4.00 k/uL Fannin% 10.7 % Abs Fannin 0.66 <0.87 k/uL Eosin% 3.1 % Abs [...] Appointment with Grace. documented in this encounter [facility] 12-14-2021 Instructions Kassidy Jang APRN.LUIS MANUEL - 12/14/2021 10:15 AM EST Get repeat labs in 1 year prior to next visit. Keep up coming appointments with specialists. Continue to take all medication as prescribed. Follow up in 1 year or sooner as needed. Health Promotion: - Eat healthy -- go to Augmed[employer].gov to get started - Have a yearly [...] - Wear sunscreen documented in this encounter [facility] 12-14-2021 History of Presen t illness Narrative This is a 51 year old male who presents today with: Patient presents with: Physical HISTORY OF PRESENT ILLNESS: Saad Alvarez is a 51 year old male. Patient presents with: Physical Here in the office for wellness exam. 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 Diet: Eating a well balanced diet. 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 Vision:Due this year, wears glasses. Dental: No teeth. Sleep: Sleeps well no complaints. Thyroid: Takign Synthroid 50 mcg daily. Denies any difficulty swallowing, palpitations, heat/cold intolerances. BPH/UTI?: Taking Flomax 0.4 mg at bedtime. Following with urology, Grace Bhatt PA-C in [place]. Next appt next week. Bipolar: Going through [facility] psychiatry, taking Seroquel 300 mg at [...] discussed and patient voices understanding. Kassidy Jang APRN.LICENSE EXAMINER This note was partially generated using [employer] voice recognition system. Note was reviewed for accuracy. There may be minor misspellings or grammar miscues with [employer] voice recognition. documented in this encounter [facility] 12-02-2021 Miscellaneous Notes Mikie Lomas with [...] Mariam Lin LPN documented in this encounter [facility] 07-23-2021 Miscellaneous Notes This has been [...] Developmental disabilities services & support Admin at [phone]. Route to [place] when form completed for processing documented in this encounter [facility] Diagnosis Benign prostatic hyperplasia, unspecified whether lower urinary tract symptoms present- Primary documented in this encounter [facility] note* Diagnosis Intellectual disability- Primary Unspecified intellectual disabilities Balance disorder Other symptoms involving nervous and musculoskeletal systems documented in this encounter [facility] note* Diagnosis Hypothyroidism, unspecified type- Primary documented in this encounter [facility] note* Diagnosis Viral illness- Primary Unspecified viral infection, in conditions classified elsewhere and of unspecified site Cerebral palsy, unspecified type (HCC) Gait difficulty Abnormality of gait documented in this encounter [facility] note* Diagnosis Benign prostatic hyperplasia, unspecified whether lower urinary tract symptoms present- Primary documented in this encounter [facility] note* Diagnosis Wellness examination- Primary Hypothyroidism, unspecified type Bipolar 1 disorder (HCC) Bipolar I disorder, most recent episode (or current) unspecified Intellectual disability Unspecified intellectual disabilities Cerebral palsy, unspecified type (HCC) History of BPH Personal history of other specified diseases documented in this encounter [facility] note* Diagnosis Hypothyroidism, unspecified type documented in this encounter [facility] Reason for Referral Specialty Diagnoses / Procedures Referred By Moe campos Referred To Contact [facility] Diagnoses Cerebral palsy, unspecified type (HCC) Gait difficulty Procedures CONSULT TO PHYSICAL THERAPY PHYSICAL THERAPY EVALUATION HIGH COMPLEX 45 MINS Kassidy Jang, CECILY.LICENSE EXAMINER [address] [place] [address] [facility] [address] [place] [id number] Referral ID Status Reason Start Date Expiration Date Visits Requested Visits Authorized [id number] Pending Review Auto-Generat ed Referral 09/27/2022 09/27/2023 [...] or prosecute any alcohol or drug abuse patient.[facility] HospitalIn the event this information is protected by the Federal Confidentiality of Alcohol and Drug Abuse Patient Records regulations: The Federal rules restrict any use of the information to criminally investigate or prosecute any alcohol or drug abuse patient.[facility] HospitalIn the event this information is protected by the Federal Confidentiality of Alcohol and Drug Abuse Patient Records regulations: The Federal rules restrict any use of the information to criminally investigate or prosecute any alcohol or drug abuse patient.[facility] HospitalIn the event this information is protected by the Federal Confidentiality of Alcohol and Drug Abuse Patient Records regulations: The Federal rules restrict any use of the information to criminally investigate or prosecute any alcohol or drug abuse patient.[facility] HospitalIn the event this information is protected by the Federal Confidentiality of Alcohol and Drug Abuse Patient Records regulations: The Federal rules restrict any use of the information to criminally investigate or prosecute any alcohol or drug abuse patient.[facility] HospitalIn the event this information is protected by the Federal Confidentiality of Alcohol and Drug Abuse Patient Records regulations: The Federal rules restrict any use of the information to criminally investigate or prosecute any alcohol or drug abuse patient.[facility] HospitalIn the event this information is protected by the Federal Confidentiality of Alcohol and Drug Abuse Patient Records regulations: The Federal rules restrict any use of the information to criminally investigate or prosecute any alcohol or drug abuse patient.[facility] HospitalIn the event this information is protected by the Federal Confidentiality of Alcohol and Drug Abuse Patient Records regulations: The Federal rules restrict any use of the information to criminally investigate or prosecute any alcohol or drug abuse patient.[facility] HospitalIn the event this information is protected by the Federal Confidentiality of Alcohol and Drug Abuse Patient Records regulations: The Federal rules restrict any use of the information to criminally investigate or prosecute any alcohol or drug abuse patient.[facility] HospitalIn the event this information is protected by the [facility] Confidentiality of Alcohol and Drug Abuse Patient Records regulations: The Federal rules restrict any use of the information to criminally investigate or prosecute any alcohol or drug abuse patient.[facility] HospitalIn the event this information is protected by the Federal Confidentiality of Alcohol and Drug Abuse Patient Records regulations: The Federal rules restrict any use of the information to criminally investigate or prosecute any alcohol or drug abuse patient.[facility] Reason for Visit (unrecogniz ed section and content) Reason Comments Physical Reason Onset Date Comments Refill Request 12/02/2021 Reason Comments Follow Up Reason Comments Orders Reason Onset Date Comments Refill Request 03/26/2022 Reason Comments Acute Visit Sore throat Reason Comments Results Reason Comments Follow Up Benign Prostatic Hypertrophy Care Teams (unrecognized sec tion and content) Horticulture Teacher Relationship Specialty Start Date End Date Vini Pradhan MD [address], [place] [id number] PCP - General Family Medicine 11/05/10 Horticulture Teacher Relationship Specialty Start Date End Date Vini Pradhan MD [address] [place] [address] PCP - General Family Medicine 11/05/10 Horticulture Teacher Relationship Specialty Start Date End Date Vini Pradhan MD [address] [place] [address] PCP - General Family Medicine 11/05/10 Horticulture Teacher Relationship Specialty Start Date End Date Vini Pradhan MD [address] [place] [address] PCP - General Family Medicine 11/05/10 Horticulture Teacher Relationship Specialty Start Date End Date Vini Pradhan MD [address] [place] [address] PCP - General Family Medicine 11/05/10 Horticulture Teacher Relationship Specialty Start Date End Date Vini Pradhan MD [address] [place] [address] PCP - General Family Medicine 11/05/10 Horticulture Teacher Relationship Specialty Start Date End Date Vini Pradhan MD [address] [place] [address] PCP - General Family Medicine 11/05/10 Horticulture Teacher Relationship Specialty Start Date End Date Vini Pradhan MD [address] [place] [address] PCP - General Family Medicine 11/05/10 Horticulture Teacher Relationship Specialty Start Date End Date Vini Pradhan MD [address] [place] [address] PCP - General Family Medicine 11/05/10 (unrecognized sect ion and content) No Status Records FoundNo Status Records Found INFORMATION SOURCE (unrecogn ized section and content) DATE CREATED AUTHOR AUTHOR'S ORGANIZ ATION 02/20/2023 [facility] FOR RECORDS PERTAINING TO PATIENTS WHO [...] BE BASED ON THE PRIMARY CLINICAL RECORDS. [facility] [employer] provides no warranty or guarantee of the accuracy or completeness of information in this document.
[2023-03-12 07:00] LABS: Absolute Lymphocyte Count 2.19 X10^3/uL (0.83-4.51); Absolute Neutrophil Count 3.2 X10^3/uL (2.0-7.7); Basophil# 0.06 X10^3/uL; Eosinophil# 0.26 X10^3/uL; Eosinophils% 4.1 % (0-5); Hemoglobin 12.7 g/dL (13.0-16.5); Lymphocyte # 2.19 X10^3/ul (0.83-4.51); Lymphocyte % 34.7 % (19-41); Mean Corp Hgb Conc 32.6 g/dL (32-36); Mean Corpuscular Hgb 28.9 pg (27.0-32.0); Mean Corpuscular Volume 88.8 fL (80-94); Mean Platelet Vol. 8.4 fl (6.2-12.0); Monocyte# 0.49 X10^3/uL; Monocyte% 7.8 % (0-10); NRBC Flagged by Analyzer 0 % (0-5); Neutrophil # 3.24 X10^3/uL (2.7-7.7); Neutrophil % 51.3 % (47-70); Platelet Count 318 K/mm3 (150-450); RBC Distribution Width CV 14.1 % (11.6-14.6); RBC Distribution Width SD 45.3 fl (35.1-43.9); Red Blood Count 4.39 M/mm3 (4.6-6.2); White Blood Count 6.3 K/mm3 (4.4-11.0)
[2023-03-12 07:34] LABS: ALB/GLOB Ratio 0.7 RATIO (0.9-2.4); AST(SGOT) 22 U/L (15-37); Alanine Aminotransfer ALT/SGPT 44 U/L (16-61); Albumin, Serum 3.1 g/dL (3.2-5.0); Alkaline Phosphatase 73 U/L (45-117); Anion Gap 2 (5-15); BUN 8 mg/dL (7-18); BUN/Creat Ratio 12.5 RATIO (10-20); Bilirubin, Direct 0.12 mg/dL (0.00-0.30); Calcium,Total 8.9 mg/dL (8.5-10.1); Chloride 113 mmol/L (98-107); Creatinine, Serum 0.64 mg/dL (0.70-1.30); EST Glomerular Filtration Rate 139 mL/min (>60); Est Glom Filt Rate - Afr Amer 168 mL/min (>60); Estimated Creatinine Clearance 91.76 ml/min; Globulin 4.2 g/dL (2.2-4.2); Glucose 79 mg/dL (74-106); Potassium 3.8 mmol/L (3.5-5.1); Protein, Total 7.3 g/dL (6.4-8.2); Sodium Level 141 mmol/L (136-145); Thyroid Stim Hormone (TSH) 3.42 uIU/mL (0.358-3.74)
--- NOTE | 2023-03-12 08:25 | PN.HOSP_ITS ---
Subjective Subjective Discussed with case with patient's brother who is at bedside. Brother states that the patient peers to be back to his baseline. Patient does have variations in his activity level as well as his speech coherence throughout the day. He does appear better corded the patient's brother. Function with the patient, he is slow and measured his speech but does follow commands appropriately. Patient denies any complaints at this time. Objective Data Objective Data Vital Signs: Vital Signs Temp Pulse Resp BP Pulse Ox O2 Del Method 36.8 C 53 L 18 133/94 H 97 Room Air 03/12/23 03:22 03/12/23 03:22 03/12/23 03:22 03/12/23 03:22 03/12/23 03:22 03/12/23 03:22 Oxygen Delivery Method Room Air Weight: 48.6 kg Body Mass Index (BMI) 20.2 Intake & Output: Intake and Output for Last 24 Hours 03/10/23 03/11/23 03/12/23 23:59 23:59 23:59 Intake Total 2072.5 / 2072.5 1830 / 1830 Output Total 350 / 350 Balance 1722.5 / 1722.5 1830 / 1830 Lab / Micro Data 03/12/23 06:46 03/12/23 06:46 Labs: Laboratory Results - last 24 hr 03/11/23 10:40: WBC 6.4, RBC 4.25 L, Hgb 12.4 L, Hct 38.2 L, MCV 89.9, MCH 29.2, MCHC 32.5, RDW Std Deviation 45.8 H, RDW Coeff of Jonathon 14.1, Plt Count 309, MPV 8.6, Immature Gran % (Auto) 1.100 H, Neut % (Auto) 42.4 L, Lymph % (Auto) 41.5 H , [place] % (Auto) 9.9, Eos % (Auto) 4.5, Baso % (Auto) 0.6, Absolute Neuts (auto) 2.7, Absolute Lymphs (auto) 2.65, Nucleated RBC % 0, D-Dimer Quant (PE/DVT) 0.58 H*, Sodium 142, Potassium 3.8, Chloride 111 H, Carbon Dioxide 28.0, Anion Gap 3 L, BUN 16, Creatinine 0.93, Estim Creat Clear Calc 79.91, Est GFR (MDRD) Af Amer 109, Est GFR (MDRD) Non-Af 90, BUN/Creatinine Ratio 17.2, Glucose 84, Calcium 9.3, Total Bilirubin 0.40, Direct Bilirubin 0.11, AST 23, ALT 50, Alkaline Phosphatase 74, Troponin I High Sens < 3 L, Total Protein 7.7, Albumin 3.2, Globulin 4.5 H 03/11/23 11:00: Urine Color Yellow, Urine Clarity Sl. Cloudy, Urine pH 6.0, Ur Specific [place] 1.015, Urine Protein 15 H, Urine Glucose (UA) Normal, Urine Ketones 5 H, Urine Occult Blood 10 H, Urine Nitrite Positive H, Urine Bilirubin Negative, Urine Urobilinogen 1 H, Ur Leukocyte Esterase 500 H, Urine RBC 0-5 SEEN, Urine WBC 25-50 SEEN, Ur Squamous Epith Cells 0-5 SEEN, Urine Bacteria 2+, Urine Mucus 0 SEEN 03/11/23 15:57: Ammonia < 10.0 L, Valproic Acid 91 03/12/23 06:46: WBC 6.3, RBC 4.39 L, Hgb 12.7 L, Hct 39.0 L, MCV 88.8, MCH 28.9, MCHC 32.6, RDW Std Deviation 45.3 H, RDW Coeff of Jonathon 14.1, Plt Count 318, MPV 8.4, Immature Gran % (Auto) 1.100 H, Neut % (Auto) 51.3, Lymph % (Auto) 34.7, [place] % (Auto) 7.8, Eos % (Auto) 4.1, Baso % (Auto) 1.0, Absolute Neuts (auto) 3.2, Absolute Lymphs (auto) 2.19, Nucleated RBC % 0, Sodium 141, Potassium 3.8, Chloride 113 H, Carbon Dioxide 26.0, Anion Gap 2 L, BUN 8, Creatinine 0.64 L, Estim Creat Clear Calc 91.76, Est GFR (MDRD) Af Amer 168, Est GFR (MDRD) Non-Af 139, BUN/Creatinine Ratio 12.5, Glucose 79, Calcium 8.9, Total Bilirubin 0.40, Direct Bilirubin 0.12, AST 22, ALT 44, Alkaline Phosphatase 73, Total Protein 7.3, Albumin 3.1 L, Globulin 4.2, Albumin/Globulin Ratio 0.7 L, TSH 3.42 Micro: Microbiology 03/11/23 10:44 Mucosa - Nasopharyngeal SARS-CoV-2, Influenza & RSV (PCR) - Final Radiography Diagnostic Testing: Radiology Impression Chest X-Ray 03/11/23 11:20 IMPRESSION: Normal x-ray examination of the chest. Electronically Signed: Jose Rosales MD at 12:00 EST , Chest CTA 03/11/23 11:30 IMPRESSION: Limited examination due to patient motion artifact. No evidence of pulmonary embolism. Findings suggestive of mild atelectasis at the lung bases. Electronically Signed: Jose Rosales MD at 12:07 EST , Physical Exam Const Constitutional Narrative: Awake. In chair. Nontoxic. Follows commands appropriately. Speech is difficult to understand at times but is able to tell me his name. Extremity normal to inspection Neuro moves all extremities and no focal motor deficits Sensorium / Orientation: awake Motor Exam: strength 5/5 throughout Assessment & Plan Assessment/Plan (1) UTI (urinary tract infection): (2) Weakness: (3) Hypotension: (4) Unsteady gait: (5) Hypothyroidism: PLAN: Plan Toxic encephalopathy * 2/2 to unintentional doubling of his medications. Discussed with the patient's brother, this is a concern. Patient been out of medications for about a week and did get his medications was calm and Dosepaks. Is unclear if he actually did take too much medications but he did get his dose of haloperidol yesterday. * monitor * valproic acid wnl Suspected UTI * UA equivocal * follow up UCx * continue CTX Debility * PT OT eval and treat Chronic conditions: * Bipolar disorder-On monthly injections of Haldol, last dose last night-Also takes Seroquel and Depakote-Will continue these at appropriate doses with instructions to hold for sedation * BPH-continue tamsulosin * Hypothyroidism-Continue Synthroid-Family unsure if he is taking his Synthroid, will check TSH DVT ppx: Lovenox subcu Disposition: To be determined. Patient lives with his brother normally. Will have therapy evaluate him to see if there is any additional agnes that they have. If not then the plan to be discharged patient with antibiotics. Charges/Coding Visit Charges Inpatient E&M: 24525 Subs Hosp L2
[2023-03-12 08:46] VITALS: BP 115/75; PULSE 56; RESP 16; TEMP 36.4; O2SAT 100
[2023-03-12] MEDS: Docusate Sodium 100 MG Capsule PO (08:49)
[2023-03-12] MEDS: Divalproex Sodium 250 MG Tablet PO ×2 (08:50→18:09)
[2023-03-12] MEDS: Enoxaparin 40 MG/0.4 ML Syringe SC (08:51)
[2023-03-12] MEDS: QUEtiapine 100 MG Tablet PO (08:51)
[2023-03-12] MEDS: Ceftriaxone 1 GM/50 ML BAG IV (08:58)
--- NOTE | 2023-03-12 10:36 | CASEMGMT ---
Addendum entered by Erin Iyv 03/12/23 15:12: No therapy recommended, pt to dc today. Original Note: RN TRINITY Assessment: Face to Face with pt for initial transition planning/care coordination assessment. RN TRINITY introduced self and role at [facility], pt voices understanding. Pt legal guardian Carolyn Farah present in room and answers assessment questions. Hospitalist in room during assessment as well. Care providers, pharmacy, and demographics verified/updated. Admitting Dx: UTI PCP:Renee Specialists: In [facility], brother unable to state type of doctor, sounds as maybe a psychiatrist Preferred Pharmacy: [facility] Retail Insurance: [employer] [place] Prescription Benefit: yes LNOK: Carolyn Farah, legal guardian, brother Living Arrangements: Pt lives with brother and in a two story home with no steps to enter. Pt lives on main level. Pt brother reports pt is I in bathing and dressing and pt mateus provides meals and home mgmt tasks. Transportation: Pt and family hire drivers. DME:cane that pt uses when he goes to [facility], doesn't use typically at home HHC/SNF: Pt has been to a psychiatric hospital in the past. [facility]. Denies hx of HHC or SNF stays. Pt guardian states no concerns with going home at time of dc. He reports pt gets his meds in packets and is usually I in administering them. Uncertain if he double dosed yesterday. Hospitalist would like therapy to eval pt before dc'ing. TC to therapy, they should be seeing pt in the afternoon. Pt brother unsure if he will leave and come back with his motor vehicle escort driver. Provided him the nurses station phone number to call if he should leave. Pt has CM Lila Cox. [phone].Pt/brother states no further concerns/needs. CM to follow. Advised pt to ask CM if any further question/concerns/needs arise, voices understanding. Pt Goal: Home Plan: Home, follow therapy Message phones: Junior Goins- call first [phone] Kang Mccormick [phone] Chivo GoinsRbxn-[phone]
--- NOTE | 2023-03-12 13:33 | DCINST_ITS ---
Discharge Instructions Diet Discharge Diet: No restrictions Follow Up Care Test Results: Test results from this visit will be discussed in further detail at your follow- up appointment, if applicable. Discharge Plan Admission Admit Date/Time: 03/11/23 14:19 Primary Reason for Your Visit: Urinary tract infection. Attending Provider: Dm Hoang Primary Care Provider: Bry Duran Consulting Providers: Radha Saleh Discharge Orders/Prescriptions Prescriptions: New sulfamethoxazole-trimethoprim [Bactrim DS] 800-160 mg tablet 1 tab PO Q12H Qty: 10 0RF Continued quetiapine [Seroquel] 300 MG tablet 300 tab PO QHS quetiapine 100 MG tablet 100 mg PO DAILY Rx Instructions: take in the am levothyroxine [Synthroid] 50 MCG tablet 50 mcg PO DAILY benztropine 2 MG tablet 2 mg PO QHS divalproex 500 MG tablet,delayed release (DR/EC) 1,000 mg PO QHS Patient Comments: pt takes 250mg in the am and pm, as well as two 500mg tablets in the pm tamsulosin 0.4 MG capsule 0.4 mg PO QHS haloperidol decanoate 100 MG/ML solution 75 mg IM QMONTH docusate sodium [DOK] 100 MG capsule 100 mg PO BID divalproex 250 mg tablet,delayed release (DR/EC) 250 mg PO BID Patient Comments: pt takes 250mg bid, as well as two 500mg tablets in the evening Referrals / Follow Up: Bry Duran MD [Primary Care Provider] - Within 2 Weeks Disposition Disposition (needs filled in before D/C Order can be placed): Home, Self Care
--- NOTE | 2023-03-12 14:08 | DS.PCM_ITS ---
Providers Date of Admission: 03/11/23 Primary Care Physician: Dr. Bry Duran MD Reason For Visit: UTI Diagnosis Discharge Diagnosis (1) UTI (urinary tract infection): Status: Acute Code(s): N39.0 - Urinary tract infection, site not specified (2) Weakness: Status: Acute Code(s): R53.1 - Weakness (3) Hypotension: Status: Acute Code(s): I95.9 - Hypotension, unspecified (4) Unsteady gait: Status: Acute Code(s): R26.81 - Unsteadiness on feet (5) Hypothyroidism: Status: Acute Code(s): E03.9 - Hypothyroidism, unspecified Plan Toxic encephalopathy * 2/2 to unintentional doubling of his medications. Discussed with the patient's brother, this is a concern. Patient been out of medications for about a week and did get his medications was calm and Dosepaks. Is unclear if he actually did take too much medications but he did get his dose of haloperidol yesterday. * monitor * valproic acid wnl Suspected UTI * UA equivocal * follow up UCx * continue CTX Debility * PT OT eval and treat stated that the patient was could return home. Chronic conditions: * Bipolar disorder-On monthly injections of Haldol, last dose last night-Also takes Seroquel and Depakote-Will continue these at appropriate doses with instructions to hold for sedation * BPH-continue tamsulosin * Hypothyroidism-Continue Synthroid-Family unsure if he is taking his Synthroid, will check TSH DVT ppx: Lovenox subcu Disposition: Return to home. Patient lives with his brother. Patient will need to be make sure that he is taking his medications properly. Patient has daily Dosepaks that need to be ensured is not doubling up on his medications. Brother did not know for sure if he did take too much of his medications but he was certainly concerned about that. Medications at Discharge Home Medications benztropine 2 mg tablet 2 mg PO QHS MENTAL HEALTH 08/25/17 levothyroxine 50 mcg tablet (Synthroid) 50 mcg PO DAILY THYROID 08/25/17 quetiapine 100 mg tablet 100 mg PO DAILY MENTAL HEALTH 08/25/17 quetiapine 300 mg tablet (Seroquel) 300 tab PO QHS MENTAL HEALTH 08/25/17 divalproex 500 mg tablet,delayed release 1,000 mg PO QHS 02/14/18 docusate sodium 100 mg capsule (DOK) 100 mg PO BID stool softner 02/14/18 haloperidol decanoate 100 mg/mL intramuscular solution 75 mg IM [facility] 02/14/18 tamsulosin 0.4 mg capsule 0.4 mg PO QHS prostate 02/14/18 divalproex 250 mg tablet,delayed release 250 mg PO BID bipolar 03/11/23 sulfamethoxazole 800 mg-trimethoprim 160 mg tablet (Bactrim DS) 1 tab PO Q12H #10 tabs 03/12/23 Hospital Course Operations None Procedures None Summary of Care Provided Minutes Spent on Discharge: 32 Weight / BMI Weight Weight: 48.6 kg Body Mass Index (BMI) 20.2 ABG / Lab / Microbiology Data 03/12/23 06:46 03/12/23 06:46 Laboratory: Laboratory Results - last 24 hr 03/11/23 15:57: Ammonia < 10.0 L, Valproic Acid 91 03/12/23 06:46: WBC 6.3, RBC 4.39 L, Hgb 12.7 L, Hct 39.0 L, MCV 88.8, MCH 28.9, MCHC 32.6, RDW Std Deviation 45.3 H, RDW Coeff of Jonathon 14.1, Plt Count 318, MPV 8.4, Immature Gran % (Auto) 1.100 H, Neut % (Auto) 51.3, Lymph % (Auto) 34.7, [place] % (Auto) 7.8, Eos % (Auto) 4.1, Baso % (Auto) 1.0, Absolute Neuts (auto) 3.2, Absolute Lymphs (auto) 2.19, Nucleated RBC % 0, Sodium 141, Potassium 3.8, Chloride 113 H, Carbon Dioxide 26.0, Anion Gap 2 L, BUN 8, Creatinine 0.64 L, Estim Creat Clear Calc 91.76, Est GFR (MDRD) Af Amer 168, Est GFR (MDRD) Non-Af 139, BUN/Creatinine Ratio 12.5, Glucose 79, Calcium 8.9, Total Bilirubin 0.40, Direct Bilirubin 0.12, AST 22, ALT 44, Alkaline Phosphatase 73, Total Protein 7.3, Albumin 3.1 L, Globulin 4.2, Albumin/Globulin Ratio 0.7 L, TSH 3.42 Microbiology: Microbiology 03/11/23 11:00 Urine, Catheterized Urine Culture - Preliminary GNR lactose criminal lawyer 03/11/23 10:44 Mucosa - Nasopharyngeal SARS-CoV-2, Influenza & RSV (PCR) - Final D/C Instructions Discharge Diet: No restrictions Meaningful Use Info Meaningful Use Diagnoses (Choose all that apply): None applicable Discharge Plan Admission Admit Date/Time: 03/11/23 14:19 Primary Reason for Your Visit: Urinary tract infection. Attending Provider: Dm Hoang Primary Care Provider: Bry Duran Consulting Providers: Radha Saleh Discharge Orders/Prescriptions Prescriptions: New sulfamethoxazole-trimethoprim [Bactrim DS] 800-160 mg tablet 1 tab PO Q12H Qty: 10 0RF Continued quetiapine [Seroquel] 300 MG tablet 300 tab PO QHS quetiapine 100 MG tablet 100 mg PO DAILY Rx Instructions: take in the am levothyroxine [Synthroid] 50 MCG tablet 50 mcg PO DAILY benztropine 2 MG tablet 2 mg PO QHS divalproex 500 MG tablet,delayed release (DR/EC) 1,000 mg PO QHS Patient Comments: pt takes 250mg in the am and pm, as well as two 500mg tablets in the pm tamsulosin 0.4 MG capsule 0.4 mg PO QHS haloperidol decanoate 100 MG/ML solution 75 mg IM QMONTH docusate sodium [DOK] 100 MG capsule 100 mg PO BID divalproex 250 mg tablet,delayed release (DR/EC) 250 mg PO BID Patient Comments: pt takes 250mg bid, as well as two 500mg tablets in the evening Referrals / Follow Up: Bry Duran MD [Primary Care Provider] - Within 2 Weeks Disposition Disposition (needs filled in before D/C Order can be placed): Home, Self Care Charges/Coding Visit Charges Inpatient E&M: 61905 Disch Hosp >30min
[2023-03-12 15:00] VITALS: BP 98/61; PULSE 94; RESP 16; TEMP 36.3; O2SAT 98
--- OUTSIDE RECORDS SUMMARY | 2023-03-16 14:55 | XMS RPT_ITS | CCD ---
Author Name Unknown Address [address] [place] [address] Organization [facility] Care Team Providers Care Town Administrator Name Role Phone Vini Pradhan MD Primary Care Provider Asim Brown Attending Unavailable Asim Brown Referring Unavailable VINI PRADHAN Primary Care Unavailable GRACE BHATT Attending Unavailable AILYN GARCÍA Referring VNII Kim Primary Care Unavailable VINI PRADHAN Primary [...] [GLUTEN] Drug Allergy 11-05-2010 Other: See Comments [facility] Medications Completed/Discontinued Medications Medication Drug Class(es) [...] 02-16-2023 Episodic Other aftercare (1 source) Other manager terminal (current) drug therapy; Translations: [Encounter for long-term [...] 12:54-0500 Body height 156.2 cm Juan Rambo CHAIR INSPECTOR.FIRE PREVENTION FORESTER Work Phone: [facility] 01-11-2023 12:54-0500 Body temperature 96.91 [degF] Juan Rambo CHAIR INSPECTOR.FIRE PREVENTION FORESTER Work Phone: [facility] 01-11-2023 12:54-0500 Body weight 54.61 kg Juan Rambo CHAIR INSPECTOR.FIRE PREVENTION FORESTER Work Phone: [facility] 01-11-2023 12:54-0500 Diastolic blood pressure 73 mm[Hg] Juan Rambo CHAIR INSPECTOR.FIRE PREVENTION FORESTER Work Phone: [facility] 01-11-2023 12:54-0500 Heart rate 84 /min Juan Rambo CHAIR INSPECTOR.FIRE PREVENTION FORESTER Work Phone: [facility] 01-11-2023 12:54-0500 Respiratory rate 16 /min Juan Rambo CHAIR INSPECTOR.FIRE PREVENTION FORESTER Work Phone: [facility] 01-11-2023 12:54-0500 SaO2% (BldA) [Mass fraction] 97 % Juan Rambo CHAIR INSPECTOR.FIRE PREVENTION FORESTER Work Phone: [facility] 01-11-2023 12:54-0500 Systolic blood pressure 107 mm[Hg] Juan Rambo CHAIR INSPECTOR.FIRE PREVENTION FORESTER Work Phone: [facility] 12-28-2022 10:03-0500 Body height 152.4 cm Grace Bhatt PA-C Work Phone: [facility] 12-28-2022 10:03-0500 Body temperature 98.01 [degF] Grace Bhatt PA-C Work Phone: [facility] 12-28-2022 10:03-0500 Body weight 54.7 kg Grace Bhatt PA-C Work Phone: [facility] 12-28-2022 10:03-0500 Diastolic blood pressure 78 mm[Hg] Grace Bhatt PA-C Work Phone: [facility] 12-28-2022 10:03-0500 Heart rate 84 /min Grace Bhatt PA-C Work Phone: [facility] 12-28-2022 10:03-0500 Respiratory rate 14 /min Grace Bhatt PA-C Work Phone: [facility] 12-28-2022 10:03-0500 SaO2% (BldA) [Mass fraction] 98 % Grace Bhatt PA-C Work Phone: [facility] 12-28-2022 10:03-0500 Systolic blood pressure 102 mm[Hg] Grace Bhatt PA-C Work Phone: [facility] 09-27-2022 12:41-0400 Body temperature 97.2 [degF] Kassidy Tannhof CHAIR INSPECTOR.FIRE PREVENTION FORESTER Work Phone: [facility] 09-27-2022 12:41-0400 Body weight 50.8 kg Kassidy Tannhof CHAIR INSPECTOR.FIRE PREVENTION FORESTER Work Phone: [facility] 09-27-2022 12:41-0400 Diastolic blood pressure 60 mm[Hg] Kassidy Tannhof CHAIR INSPECTOR.FIRE PREVENTION FORESTER Work Phone: [facility] 09-27-2022 12:41-0400 Heart rate 77 /min Kassidy Tannhof CHAIR INSPECTOR.FIRE PREVENTION FORESTER Work Phone: [facility] 09-27-2022 12:41-0400 Respiratory rate 16 /min Kassidy Tannhof CHAIR INSPECTOR.FIRE PREVENTION FORESTER Work Phone: [facility] 09-27-2022 12:41-0400 SaO2% (BldA) [Mass fraction] 94 % Kassidy Tannhof CHAIR INSPECTOR.FIRE PREVENTION FORESTER Work Phone: [facility] 09-27-2022 12:41-0400 Systolic blood pressure 90 mm[Hg] Kassidy Tannhof CHAIR INSPECTOR.FIRE PREVENTION FORESTER Work Phone: [facility] 12-22-2021 11:06-0500 Body height 149.9 cm Grace Bhatt PA-C Work Phone: [facility] 12-22-2021 11:06-0500 Body temperature 96.91 [degF] Grace Bhatt PA-C Work Phone: [facility] 12-22-2021 11:06-0500 Body weight 53.52 kg Grace Bhatt PA-C Work Phone: [facility] 12-22-2021 11:06-0500 Diastolic blood pressure 70 mm[Hg] Grace Bhatt PA-C Work Phone: [facility] 12-22-2021 11:06-0500 Heart rate 86 /min Grace Bhatt PA-C Work Phone: [facility] 12-22-2021 11:06-0500 Respiratory rate 14 /min Grace Bhatt PA-C Work Phone: [facility] 12-22-2021 11:06-0500 SaO2% (BldA) [Mass fraction] 99 % Grace Bhatt PA-C Work Phone: [facility] 12-22-2021 11:06-0500 Systolic blood pressure 104 mm[Hg] Grace Bhatt PA-C Work Phone: [facility] 12-14-2021 10:02-0500 Body height 152 cm Kassidy Tannhof CHAIR INSPECTOR.FIRE PREVENTION FORESTER Work Phone: [facility] 12-14-2021 10:02-0500 Body weight 53.07 kg Kassidy Tannhof CHAIR INSPECTOR.FIRE PREVENTION FORESTER Work Phone: [facility] 12-14-2021 10:02-0500 Diastolic blood pressure 70 mm[Hg] Kassidy Tannhof CHAIR INSPECTOR.FIRE PREVENTION FORESTER Work Phone: [facility] 12-14-2021 10:02-0500 Heart rate 78 /min Kassidy Tannhof CHAIR INSPECTOR.FIRE PREVENTION FORESTER Work Phone: [facility] 12-14-2021 10:02-0500 Respiratory rate 16 /min Kassidy Tannhof CHAIR INSPECTOR.FIRE PREVENTION FORESTER Work Phone: [facility] 12-14-2021 10:02-0500 SaO2% (BldA) [Mass fraction] 98 % Kassidy Tannhof CHAIR INSPECTOR.FIRE PREVENTION FORESTER Work Phone: [facility] 12-14-2021 10:02-0500 Systolic blood pressure 100 mm[Hg] Kassidy Jang APRN.CNP Work Phone: [facility] Encounters Encounter Date Encounter Type Care Provider Facility Start: 02-16-2023 End: 02-17-2023 ambulatory VINI PRADHAN Facility:[facility] Start: 01-12-2023 Telephone encounter Juan rosa APRN.CNP Work Phone: [facility] [place] Procedures Date Procedure Procedure Detail Performing Clinician Start: 12-29-2022 Haloperidol decanoate inj Asim Brown Start: 12-29-2022 Psysoc rehab svc, pe r 15 min Asim Brown Start: 12-13-2022 Lipid 1996 panel - S miguel or Plasma Juan Nguyen APRN.FIRE PREVENTION FORESTER Work Phone: Start: 08-01-2018 Adult depression scr eening assessment Vini Pradhan MD Work Phone: Plan of Treatment Date Care Activity Detail Author Start: 12-14-2027 Lipid 1996 panel - S miguel or Plasma Lipid Screening [facility] Start: 08-12-2026 LIPID SCREEN LIPID SCREEN [facility] Start: 12-13-2025 Diabetes Screening Diabetes Screenin g [facility] Start: 05-15-2025 LIPID SCREEN LIPID SCREEN [facility] Start: 08-12-2024 DIABETES SCREEN DIABETES SCREEN [facility] Start: 01-12-2024 Annual PCP Team Development Mgr inge Disease Visit Annual PCP Team Chronic Disease Visit [facility] Start: 01-12-2024 Covid-19 Vaccine (#1) Covid-19 Vacci ne (#1) [facility] Immunizations Immunization Date Immunization Notes Care Provider Fa cilimolly 12-08-2017 influenza, injectabl e, quadrivalent, contains preservative Vini Pradhan MD Work Phone: [facility] 12-08-2017 influenza virus vaccine, unspecified formulation Juan Nguyen APRN.FIRE PREVENTION FORESTER Work Phone: [facility] Payers Date Payer Category Payer Medicaid [place] [id number] 2012-Present [phone] [address] [place] [address] Medicaid [id number] 2012 [place] [id number] 2012-Present [phone] [address] [place] [id number] Medicaid [id number] 2012 Medicaid [id number] 1970 Unknown [id number] Social History Date Type Detail Facility Start: 05-02-2017 End: 12-14-2021 Tobacco smoking status NHIS Never smoked tobacco [facility] Start: 08-13-2020 End: 09-27-2022 Alcohol intake Current non-drinker of alcohol (finding) [facility] Start: 1970 Sex Assigned At Not on file [facility] Start: 05-02-2017 End: 12-14-2021 Tobacco use and exposure Smokeless tobacco non-user [facility] Start: 12-04-2021 End: 12-22-2021 Exposure to SARS-CoV-2 (event) Not sure [facility] Start: 09-27-2022 End: 01-11-2023 History of Social function [facility] Start: 09-27-2022 End: 01-11-2023 Tobacco use panel [facility] Adult Depression Scr eening Assessment 0 [facility] Start: 12-28-2022 End: 01-11-2023 Alcohol intake Ex-drinker (finding) [facility] Clinical Notes 07-23-2021 to 02-16-2023 Telephone Encounter - Tram Suarez RN - 01/12/2023 8:56 AM ESTTelephone Encounter - Juan Nguyen APRN.CNP - 01/12/2023 8:25 AM Juan Arriola APRN.FIRE PREVENTION FORESTER - 01/11/2023 1:00 PM EST Note Date & Type Note Facility 01-10-2024 Note HNO ID: [id number] Author: KASSIDY JANG APRN.FIRE PREVENTION FORESTER Service: ? Author Type: Nurse Practitioner Type: Progress Notes Filed: 02/16/2023 11:02 Note Text: This is a 52 year old male who presents today with: Patient presents with: Follow Up: Hospital follow up HISTORY OF PRESENT ILLNESS: Saad Alvarez is a 52 year old male. Patient presents with: Follow Up: Hospital follow up HOSPITAL/ER FOLLOW UP: farm or ranch animal caretaker present Reason for visit: Agitation Which facility: [facility] Date of visit: 01/08/23 Diagnosis: [...] treatment plan and (more content not included)... [facility] 01-12-2023 Miscellaneous Notes Pts drying room attendant Mikie was called and is notified of providers results and instructions. She voices understanding. Tram Suarez RN Please let the patient/caregiver know that his TSH was normal. I sent in a refill of his levothyroxine for a year. Juan Nguyen APRN.LUIS MANUEL documented in this encounter [facility] 01-11-2023 Note HNO ID: [id number] Author: Juan Nguyen APRN.LUIS MANUEL Service: ? [...] - 144 mmol/L (more content not included)... [facility] 01-11-2023 History of Presen t [...] Z87.438 -Continue following with urology Juan Nguyen APRN.FIRE PREVENTION FORESTER RTO in 12 months, sooner if needed. This note was partly generated using [employer] voice recognition dictation and may contain some misspelled or inaccurate words missed on review. documented in this encounter [facility] 12-28-2022 Note HNO ID: [id number] Author: Grace Bhatt PA-C Service: ? Author Type: Physician Branch Operations Manager Type: Progress Notes Filed: 12/28/2022 10:30 AM Note Text: [facility] ESTABLISHED PATIENT CLINIC NOTE [...] as prescribed > Flomax refills sent to [facility] > 1 year Appt w/ BMONICA Rihcardson MT, FCO for annual follow-up and refills. MONICA Zee MT, FCO [facility] 12-28-2022 Note HNO ID: [id number] Author: Mariam Lin LPN Service: ? Author [...] time in the bathroom trying. Mikie Lomas, clinical social work aide for patient, states he often takes a long time to go. Results of scan: 4 mL The patient tolerated the procedure well. Plan: Appointment with Grace. [facility] 12-28-2022 Instructions Grace Bhatt PA-C - 12/28/2022 10:29 AM EST > 1 year Appt w/ B. MONICA Bhatt, MTFCO for annual follow-up and refills. documented in this encounter [facility] 12-28-2022 History of Presen t illness Narrative Images from the original note were not included. [facility] [...] as prescribed > Flomax refills sent to [facility] > 1 year Appt w/ BMONICA Richardson, CIRO, FCO for annual follow-up and refills. MOINCA Zee MT, FCO Verified name and date [...] time in the bathroom trying. Mikie Lomas, clinical social work aide for patient, states he often takes a long time to go. Results of scan: 4 mL The patient tolerated the procedure well. Plan: Appointment with Grace. documented in this encounter [facility] 12-24-2022 Miscellaneous Notes Spoke with Mikie, certified caregiver, and given provider's message below with verbalized [...] to get his TSH drawn. Juan Nguyen APRN.FIRE PREVENTION FORESTER documented in this encounter [facility] 09-27-2022 Note HNO ID: [id number] Author: Kassidy Jang APRN.LUIS MANUEL Service: ? [...] discussed and patient voices understanding. Kassidy Jang APRN.FIRE PREVENTION FORESTER This note was partially generated using [employer] (more content not included)... [facility] 09-27-2022 Instructions Kassidy Jang APRN.FIRE PREVENTION FORESTER - 09/27/2022 1:15 PM EDT Symptoms consistent with viral illness, continue supportive care at home. Stay well hydrated. Consult placed for physical therapy to help with gait. Follow up as needed. documented in this encounter [facility] 09-27-2022 History of Presen t illness [...] APRN.CNP This note was partially generated using [employer] voice recognition system. Note was reviewed for accuracy. There may be minor misspellings or grammar miscues with [employer] voice recognition. documented in this encounter [facility] 03-26-2022 Miscellaneous Notes The following approved [...] Barby Gunn LPN documented in this encounter [facility] 01-25-2022 Miscellaneous Notes Order sent to Tony Pradhan MD [facility] from [facility] calls and states that patient is needing a new Quad Cane. Sully asking if provider can write an order for Quad Cane? Patient uses [facility]. Please review and advise, Akila Payan RN documented in this encounter [facility] 12-22-2021 History of Presen t illness Narrative Images from the original note were not included. [facility] [...] Abs Lymph 2.22 1.00 - 4.00 k/uL Irion% 10.7 % Abs Irion 0.66 <0.87 k/uL Eosin% 3.1 % Abs [...] Appointment with Grace. documented in this encounter [facility] 12-14-2021 Instructions Kassidy Jang APRN.LUIS MANUEL - 12/14/2021 10:15 AM EST Get repeat labs in 1 year prior to next visit. Keep up coming appointments with specialists. Continue to take all medication as prescribed. Follow up in 1 year or sooner as needed. Health Promotion: - Eat healthy -- go to [email or web address] to get started - Have a yearly [...] - Wear sunscreen documented in this encounter [facility] 12-14-2021 History of Presen t illness Narrative This is a 51 year old male who presents today with: Patient presents with: Physical HISTORY OF PRESENT ILLNESS: Saad Alvarez is a 51 year old male. Patient presents with: Physical Here in the office for wellness exam. Nail Cutter Mikie present today. Diet: Eating a well balanced diet. 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 Vision:Due this year, wears glasses. Dental: No teeth. Sleep: Sleeps well no complaints. Thyroid: Takign Synthroid 50 mcg daily. Denies any difficulty swallowing, palpitations, heat/cold intolerances. BPH/UTI?: Taking Flomax 0.4 mg at bedtime. Following with urology, Grace Bhatt PA-C in [place]. Next appt next week. Bipolar: Going through [facility] psychiatry, taking Seroquel 300 mg at [...] discussed and patient voices understanding. Kassidy Jang APRN.FIRE PREVENTION FORESTER This note was partially generated using [employer] voice recognition system. Note was reviewed for accuracy. There may be minor misspellings or grammar miscues with Dragon voice recognition. documented in this encounter [facility] 12-02-2021 Miscellaneous Notes Mikie Lomas with [...] Mariam Lin LPN documented in this encounter [facility] 07-23-2021 Miscellaneous Notes This has been [...] Developmental disabilities services & support Admin at [phone]. Route to DC when form completed for processing documented in this encounter [facility] documented [facility] Diagnosis Benign prostatic hyperplasia, unspecified whether lower urinary tract symptoms present- Primary documented in this encounter [facility] note* Diagnosis Intellectual disability- Primary Unspecified intellectual disabilities Balance disorder Other symptoms involving nervous and musculoskeletal systems documented in this encounter [facility] note* Diagnosis Hypothyroidism, unspecified type- Primary documented in this encounter [facility] note* Diagnosis Viral illness- Primary Unspecified viral infection, in conditions classified elsewhere and of unspecified site Cerebral palsy, unspecified type (HCC) Gait difficulty Abnormality of gait documented in this encounter [facility] note* Diagnosis Benign prostatic hyperplasia, unspecified whether lower urinary tract symptoms present- Primary documented in this encounter [facility] note* Diagnosis Wellness examination- Primary Hypothyroidism, unspecified type Bipolar 1 disorder (HCC) Bipolar I disorder, most recent episode (or current) unspecified Intellectual disability Unspecified intellectual disabilities Cerebral palsy, unspecified type (HCC) History of BPH Personal history of other specified diseases documented in this encounter [facility] note* Diagnosis Hypothyroidism, unspecified type documented in this encounter [facility] Reason for Referral Specialty Diagnoses / Procedures Referred By Moe campos Referred To Contact [facility] Diagnoses Cerebral palsy, unspecified type (HCC) Gait difficulty Procedures CONSULT TO PHYSICAL THERAPY PHYSICAL THERAPY EVALUATION HIGH COMPLEX 45 MINS Kassidy Jang, CECILY.FIRE PREVENTION FORESTER [address] [place] [address] [facility] [place] [address] [place] [id number] Referral ID Status Reason Start Date Expiration Date Visits Requested Visits Authorized [id number] Pending Review Auto-Generat ed Referral 09/27/2022 09/27/2023 [...] or prosecute any alcohol or drug abuse patient.[facility] the event this information is protected by the Federal Confidentiality of Alcohol and Drug Abuse Patient Records regulations: The Federal rules restrict any use of the information to criminally investigate or prosecute any alcohol or drug abuse patient.[facility] the event this information is protected by the Federal Confidentiality of Alcohol and Drug Abuse Patient Records regulations: The Federal rules restrict any use of the information to criminally investigate or prosecute any alcohol or drug abuse patient.[facility] the event this information is protected by the Federal Confidentiality of Alcohol and Drug Abuse Patient Records regulations: The Federal rules restrict any use of the information to criminally investigate or prosecute any alcohol or drug abuse patient.[facility] the event this information is protected by the Federal Confidentiality of Alcohol and Drug Abuse Patient Records regulations: The Federal rules restrict any use of the information to criminally investigate or prosecute any alcohol or drug abuse patient.[facility] the event this information is protected by the Federal Confidentiality of Alcohol and Drug Abuse Patient Records regulations: The Federal rules restrict any use of the information to criminally investigate or prosecute any alcohol or drug abuse patient.[facility] the event this information is protected by the Federal Confidentiality of Alcohol and Drug Abuse Patient Records regulations: The Federal rules restrict any use of the information to criminally investigate or prosecute any alcohol or drug abuse patient.[facility] the event this information is protected by the Federal Confidentiality of Alcohol and Drug Abuse Patient Records regulations: The Federal rules restrict any use of the information to criminally investigate or prosecute any alcohol or drug abuse patient.[facility] the event this information is protected by the Federal Confidentiality of Alcohol and Drug Abuse Patient Records regulations: The Federal rules restrict any use of the information to criminally investigate or prosecute any alcohol or drug abuse patient.[facility] Hospital[facility] the event this information is protected by the [facility] Confidentiality of Alcohol and Drug Abuse Patient Records regulations: The Federal rules restrict any use of the information to criminally investigate or prosecute any alcohol or drug abuse patient.[facility] the event this information is protected by the Federal Confidentiality of Alcohol and Drug Abuse Patient Records regulations: The Federal rules restrict any use of the information to criminally investigate or prosecute any alcohol or drug abuse patient.[facility] Reason for Visit (unrecogniz ed section and content) Reason Comments Physical Reason Onset Date Comments Refill Request 12/02/2021 Reason Comments Follow Up Reason Comments Orders Reason Onset Date Comments Refill Request 03/26/2022 Reason Comments Acute Visit Sore throat Reason Comments Results Reason Comments Follow Up Benign Prostatic Hypertrophy Care Teams (unrecognized sec tion and content) Town Administrator Relationship Specialty Start Date End Date Vini Pradhan MD [address] [place], [place] [id number] PCP - General Family Medicine 11/05/10 Town Administrator Relationship Specialty Start Date End Date Vini Pradhan MD [address] [place] [address] PCP - General Family Medicine 11/05/10 Town Administrator Relationship Specialty Start Date End Date Vini Pradhan MD [address] [place] [address] PCP - General Family Medicine 11/05/10 Town Administrator Relationship Specialty Start Date End Date Vini Pradhan MD [address] [place] [address] PCP - General Family Medicine 11/05/10 Town Administrator Relationship Specialty Start Date End Date Vini Pradhan MD [address] [place] [address] PCP - General Family Medicine 11/05/10 Town Administrator Relationship Specialty Start Date End Date Vini Pradhan MD [address] [place] [address] PCP - General Family Medicine 11/05/10 Town Administrator Relationship Specialty Start Date End Date Vini Pradhan MD [address] [place] [address] PCP - General Family Medicine 11/05/10 Town Administrator Relationship Specialty Start Date End Date Vini Pradhan MD [address] [place] [address] PCP - General Family Medicine 11/05/10 Town Administrator Relationship Specialty Start Date End Date Vini Pradhan MD [address] [place] [address] PCP - General Family Medicine 11/05/10 (unrecognized sect ion and content) No Status Records FoundNo Status Records Found INFORMATION SOURCE (unrecogn ized section and content) DATE CREATED AUTHOR AUTHOR'S ORGANIZ ATION 02/20/2023 [facility] FOR RECORDS PERTAINING TO PATIENTS [...] BE BASED ON THE PRIMARY CLINICAL RECORDS. [facility] [employer] provides no warranty or guarantee of the accuracy or completeness of information in this document.
--- OUTSIDE RECORDS SUMMARY | 2023-03-29 09:23 | XMS RPT_ITS | CCD ---
Author Name Unknown Address [address] [facility] [address] [place] [address] Organization [facility] Care Team Providers Care Central Processing Tech Name Role Phone Vini Pradhan MD Primary Care Provider Asim Brown Attending Unavailable Asim Brown Referring Unavailable Vini Pradhan MD Primary Care Provider GRACE BHATT Attending Unavailable VINI PRADHAN Primary Care Unavailable VINI PRADHAN Primary Care Unavailable AILYN GARCÍA Referring DoloresvaVINI Schuster Primary Care Unavailable KASSIDY JANG Attending Unavailable VINI PRADHAN Primary Care Unavailable KASSIDY JANG Attending Unavailable VINI PRADHAN Primary Care Unavailable JUAN NGUYEN Referring Unavailable VINI PRADHAN Primary Care Unavailable JUAN NGUYEN Attending Unavailable Allergies Allergy Classification Reported Allergen(s) Allergy Type Date of Onset Reaction(s) Facility (14 sources) Wheat gluten extract; Translations: [GLUTEN] Drug Allergy 11-05-2010 Other: See Comments [facility] Medications Completed/Discontinued Medications Medication Drug Class(es) Dates Sig (Normalized) Sig (Original) 8 hr acetaminophen 650 mg extended release oral tablet (13 sources) Start: 11-05-2010 take 1 tablet by mouth every eight hours as needed acetaminophen 650 mg CR tablet Take 1 tablet by mouth every 8 hours as needed. 0 11/05/2010 Active Problems Active Problems Problem Classification Problem Date Documented Da te Episodic/Chronic Developmental disorders (17 sources) Intellectual disability; Translations: [Unspecified intellectual disabilities] Onset: 11-06-2010 08-01-2018 Chronic Disorders of lipid metabolism (1 source) Mixed hyperlipidemia; Translations: [Mixed hyperlipidemia] Onset: 12-13-2022 Chronic Genitourinary symptoms and ill-defined conditions (1 source) Scalding pain on urination ; Translations: [Dysuria] 03-24-2023 Episodic Hyperplasia of prostate (2 sources) Benign prostatic hyperplasia; Translations: [Benign prostatic hyperplasia without lower urinary tract symptoms] Chronic Mood disorders (17 sources) Bipolar I disorder; Translations: [Bipolar disorder, unspecified] Onset: 11-06-2010 11-06-2010 Chronic Other aftercare (1 source) Encounter for follow-up examination after completed treatment for conditions other than malignant neoplasm; Translations: [Hospital discharge follow-up] Onset: 02-16-2023 Episodic Other gastrointestinal disorders (13 sources) Celiac disease; Translations: [Celiac disease] Onset: [...] unspecified] Onset: 09-27-2022 09-27-2022 Chronic Thyroid disorders (18 sources) Hypothyroidism; Translations: [Hypothyroidism, unspecified] Onset: 11-06-2010 11-06-2010 Chronic Urinary tract infections (15 sources) Recurrent urinary tract infection; Translations: [Urinary tract infection, site not specified] Onset: 02-01-2018 02-01-2018 Episodic Past or Other Problems Problem Classification Problem Date Documented Date Episodic/Chronic Diabetes mellitus without complication (2 sources) Increased glucose level; Translations: [Other abnormal glucose] Onset: 12-13-2022 Episodic Other aftercare (1 source) Other custodial (current) drug therapy; Translations: [Encounter for long-term (current) drug use] Onset: 12-13-2022 Episodic Other nervous system disorders (1 source) Unspecified abnormalities of gait and mobility; Translations: [Gait difficulty] Onset: 09-27-2022 Episodic Viral infection (2 sources) Viral disease; Translations: [Viral infection, unspecified] Onset: 09-27-2022 09-27-2022 Episodic Results Test Name Value Interpretation Reference Range Facil ity Vital Signs Date Time Vital Sign Value Performing Clinician Sendy oscar 01-11-2023 12:54-0500 Body height 156.2 cm Juan Nguyen PURSE SEINING [employer].HEEL PACKER Work Phone: [facility] 01-11-2023 12:54-0500 Body temperature 96.91 [degF] Juan Hail [employer]HEEL P[employer]ER Work Phone: [facility] 01-11-2023 12:54-0500 Body weight 54.61 kg Juan Nguyen [employer]HE[employer] P[employer]ER Work Phone: [facility] 01-11-2023 12:54-0500 Diastolic blood pressure 73 mm[Hg] Juan Rambo [employer]HE[employer] P[employer]ER Work Phone: [facility] 01-11-2023 12:54-0500 Heart rate 84 /min Juan Nguyen [employer].HEEL P[employer]ER Work Phone: [facility] 01-11-2023 12:54-0500 Respiratory rate 16 /min Juan Nguyen [employer].HEEL P[employer]ER Work Phone: [facility] 01-11-2023 12:54-0500 SaO2% (BldA) [Mass fraction] 97 % Juan Nguyen [employer]HEEL P[employer]ER Work Phone: [facility] 01-11-2023 12:54-0500 Systolic blood pressure 107 mm[Hg] Juna Rambo [employer] SE[employer]HEEL P[employer]ER Work Phone: [facility] 12-28-2022 10:03-0500 Body height 152.4 cm Grace MORTON-C Work Phone: [facility] 12-28-2022 10:03-0500 Body temperature 98.01 [degF] Grace Bhatt PA-C Work Phone: [facility] 12-28-2022 10:03-0500 Body weight 54.7 kg Grace Bhatt PA-C Work Phone: [facility] 12-28-2022 10:03-0500 Diastolic blood pressure 78 mm[Hg] Grace Bhatt PA-C Work Phone: [facility] 12-28-2022 10:03-0500 Heart rate 84 /min Grace Bhatt PA-C Work Phone: [facility] 12-28-2022 10:03-0500 Respiratory rate 14 /min Grace Bhatt PA-C Work Phone: [facility] 12-28-2022 10:03-0500 SaO2% (BldA) [Mass fraction] 98 % Grace Bhatt PA-C Work Phone: [facility] 12-28-2022 10:03-0500 Systolic blood pressure 102 mm[Hg] Grace Bhatt PA-C Work Phone: [facility] 09-27-2022 12:41-0400 Body temperature 97.2 [degF] Kassidy Tannhof [employer]HE[employer] P[employer]ER Work Phone: [facility] 09-27-2022 12:41-0400 Body weight 50.8 kg Kassidy Boydhof [employer]HE[employer] P[employer]ER Work Phone: [facility] 09-27-2022 12:41-0400 Diastolic blood pressure 60 mm[Hg] Kassidy Tannhof [employer]HE[employer] P[employer]ER Work Phone: [facility] 09-27-2022 12:41-0400 Heart rate 77 /min Kassidy Tannhof [employer]HE[employer] P[employer]ER Work Phone: [facility] 09-27-2022 12:41-0400 Respiratory rate 16 /min Kassidy Tannhof [employer] SE[employer]ING [employer].HE[employer] P[employer]ER Work Phone: [facility] 09-27-2022 12:41-0400 SaO2% (BldA) [Mass fraction] 94 % Kassidy Tannhof [employer]HEEL P[employer]ER Work Phone: [facility] 09-27-2022 12:41-0400 Systolic blood pressure 90 mm[Hg] Kassidy Tannhof [employer]HE[employer] P[employer]ER Work Phone: [facility] 12-22-2021 11:06-0500 Body height 149.9 cm Grace Bhatt PA-C Work Phone: [facility] 12-22-2021 11:06-0500 Body temperature 96.91 [degF] Grace Bhatt PA-C Work Phone: [facility] 12-22-2021 11:06-0500 Body weight 53.52 kg Grace Bhatt PA-C Work Phone: [facility] 12-22-2021 11:06-0500 Diastolic blood pressure 70 mm[Hg] Grace Bhatt PA-C Work Phone: [facility] 12-22-2021 11:06-0500 Heart rate 86 /min Grace Bhatt PA-C Work Phone: [facility] 12-22-2021 11:06-0500 Respiratory rate 14 /min Grace Bhatt PA-C Work Phone: [facility] 12-22-2021 11:06-0500 SaO2% (BldA) [Mass fraction] 99 % Grace Bhatt PA-C Work Phone: [facility] 12-22-2021 11:06-0500 Systolic blood pressure 104 mm[Hg] Grace Bhatt PA-C Work Phone: [facility] 12-14-2021 10:02-0500 Body height 152 cm Kassidy Tannhof [employer]HE[employer] P[employer]ER Work Phone: [facility] 12-14-2021 10:02-0500 Body weight 53.07 kg Kassidy Tannhof [employer]ING [employer]HE[employer] P[employer]ER Work Phone: [facility] 12-14-2021 10:02-0500 Diastolic blood pressure 70 mm[Hg] Kassidy Tannhof [employer] SE[employer]ING [employer]HE[employer] P[employer]ER Work Phone: [facility] 12-14-2021 10:02-0500 Heart rate 78 /min Kassidy Tannhof [employer] SE[employer]ING [employer]HE[employer] P[employer]ER Work Phone: [facility] 12-14-2021 10:02-0500 Respiratory rate 16 /min Kassidy Jang PUR[employer] SE[employer]ING [employer].HEEL P[employer]ER Work Phone: [facility] 12-14-2021 10:02-0500 SaO2% (BldA) [Mass fraction] 98 % Kassidy Jang [employer] SE[employer]ING [employer]HEEL P[employer]ER Work Phone: [facility] 12-14-2021 10:02-0500 Systolic blood pressure 100 mm[Hg] Kassidy Jang [employer]HE[employer] P[employer]ER Work Phone: [facility] Encounters Encounter Date Encounter Type Care Provider Facility Start: 03-24-2023 Orders Only John Self PA-C Work Phone: Urology Procedures Date Procedure Procedure Detail Performing Clinician Start: 12-29-2022 Haloperidol decanoate inj Asim Brown Start: 12-29-2022 Psysoc rehab svc, pe r 15 min Asim Brown Start: 12-13-2022 Lipid 1996 panel - S miguel or Plasma Juan Nguyen [employer]ER Work Phone: Start: 08-01-2018 Adult depression scr eening assessment Vini Pradhan MD Work Phone: Plan of Treatment Date Care Activity Detail Author Start: 12-14-2027 Lipid 1996 panel - S miguel or Plasma Lipid Screening [facility] Start: 12-14-2027 Lipid panel Lipid Screening [facility] Start: 08-12-2026 LIPID SCREEN LIPID SCREEN [facility] Start: 12-13-2025 Diabetes Screening Diabetes Screenin g [facility] Start: 05-15-2025 LIPID SCREEN LIPID SCREEN [facility] Start: 08-12-2024 DIABETES SCREEN DIABETES SCREEN [facility] Start: 02-17-2024 Annual PCP Team Photo Print Specialist inge Disease Visit Annual PCP Team Chronic Disease Visit [facility] Start: 01-12-2024 Annual PCP Team Photo Print Specialist inge Disease Visit Annual PCP Team Chronic Disease Visit [facility] Start: 01-12-2024 Covid-19 Vaccine (#1) Covid-19 Vacci ne (#1) [facility] Immunizations Immunization Date Immunization Notes Care Provider Fa cility 12-08-2017 influenza, injectabl e, quadrivalent, contains preservative Vini Pradhan MD Work Phone: [facility] 12-08-2017 influenza virus vaccine, unspecified formulation Juan Nguyen APRN.CNP Work Phone: [facility] Payers Date Payer Category Payer Medicaid [place] [id number] 2012-Present [phone] [address] [place] [address] Medicaid [id number] 2012 [place] [id number] 2012-Present [phone] [address] [place] [id number] Medicaid [id number] 2012 Medicaid [id number] 1970 Unknown [id number] Social History Date Type Detail Facility Start: 05-02-2017 End: 12-14-2021 Tobacco smoking status NHIS Never smoked tobacco [facility] Start: 08-13-2020 End: 09-27-2022 Alcohol intake Current non-drinker of alcohol (finding) [facility] Start: 1970 Sex Assigned At Not on file [facility] Start: 05-02-2017 End: 12-14-2021 Tobacco use and exposure Smokeless tobacco non-user [facility] Start: 12-04-2021 End: 12-22-2021 Exposure to SARS-CoV-2 (event) Not sure [facility] Start: 09-27-2022 End: 01-11-2023 History of Social function [facility] Start: 09-27-2022 End: 01-11-2023 Tobacco use panel [facility] Adult Depression Scr eening Assessment 0 [facility] Start: 12-28-2022 End: 02-16-2023 Alcohol intake Ex-drinker (finding) [facility] Clinical Notes 07-23-2021 to 03-24-2023 Telephone Encounter - Mariam Lin LPN - 03/24/2023 2:45 PM ESTTelephone Encounter - Kassandra Denise LPN - 03/24/2023 11:33 AM Juan Arriola APRN.HEEL PACKER - 01/11/2023 1:00 PM EST Note Date & Type Note Facility 03-24-2023 Miscellaneous Notes Images from the original note were not included. John Self PA-C You; [facility] Pool 2 hours ago (11:55 AM) He will need to drop off a urine for culture, if able. Order is in Called Mikie. Verified name and date of of patient. Mikie notified- states patient will not give specimen. Aware of emergency room if cognitive behaviors worsen, fever. Did check schedule again for Tuesday and opening for nurse visit for straight cath for collection. Mariam Lin LPN Mikie with [facility] called with additional information and wanted this sent to pcp. Pt's behavior is not quite right and feel pt may need additional ATB. PT was on Sulfamethoxacole. She did not have the strength. Pharmacy is [facility] . Please advise Ramon. Kassandra Denise LPN Mikie, [facility] called. Verified name and date of of patient. Mikie reports that staff tell her that patient not acting right but could not give specifics. Patient was seen in emergency room recently and was treated with antibiotic (unknown details). Mikie is asking if an antibiotic can be ordered without having a urine sample. States that patient will not give urine specimen. Educated of importance of urine culture and treatment and verbalizes understanding. States she will call PCP to see if they will order a antibiotic if urology is not able to. Mariam Lin LPN documented in this encounter [facility] 02-16-2023 Note HNO ID: [id number] Author: KASSIDY JANG APRN.HEEL PACKER Service: ? Author Type: Nurse Practitioner Type: Progress Notes Filed: 02/16/2023 11:02 Note Text: This is a 52 year old male who presents today with: Patient presents with: Follow Up: Hospital follow up HISTORY OF PRESENT ILLNESS: Mich Farah is a 52 year old male. Patient presents with: Follow Up: Hospital follow up HOSPITAL/ER FOLLOW UP: baker helper present Reason for visit: Agitation Which facility: [facility] ER Date of visit: 01/08/23 Diagnosis: [...] treatment plan and (more content not included)... [facility] 01-12-[address] manager Mikie was called and is notified of providers results and instructions. She voices understanding. Tram Suarez RN Please let the patient/caregiver know that his TSH was normal. I sent in a refill of his levothyroxine for a year. Juan Nguyen APRN.LUIS MANUEL documented in this encounter [facility] 01-11-2023 Note HNO ID: [id number] Author: Juan Nguyen APRN.LUIS MANUEL Service: ? Author Type: Nurse Practitioner Type: Progress Notes Filed: 01/11/2023 1:15 PM Note Text: Chief Complaint Patient presents with: Physical HPI Mich Farah is a 52 year old male who [...] - 144 mmol/L (more content not included)... [facility] 01-11-2023 History of Presen t illness Narrative Chief Complaint Patient presents with: Physical HPI Mich Farah is a 52 year old male who [...] Z87.438 -Continue following with urology Juan Nguyen APRN.CNP RTO in 12 months, sooner if needed. This note was partly generated using [employer] voice recognition dictation and may contain some misspelled or inaccurate words missed on review. documented in this encounter [facility] 12-28-2022 Note HNO ID: [id number] Author: Grace Bhatt PA-C Service: ? Author Type: Physician Treating Engineer Type: Progress Notes Filed: 12/28/2022 10:30 AM Note Text: [facility] PATIENT [facility] NOTE Some elements copied from his previous note, which have been updated where appropriate, and all reflect current medical decision making from date of this visit. SERVICE DATE: 12/28/2022 SERVICE TIME: 10:24 AM NAME: Mich Farah CHIEF COMPLAINT: Annual Follow-up HISTORY OF PRESENT ILLNESS: Mich Farah is a 52 year old male an [...] as prescribed > Flomax refills sent to [facility] > 1 year Appt w/ B. MONICA Bhatt MT, FCO for annual follow-up and refills. MONICA Zee MT, FCO [facility] 12-28-2022 Note HNO ID: [id number] Author: Mariam Lin LPN Service: ? Author Type: ? Type: Progress Notes Filed: 12/28/2022 10:30 AM Note Text: Verified name and date of . CC Post Void Residual HPI: Mich Farah is a 52 year old male. The patient is here now for an appointment with MONICA Zee MT, ODALIS. Procedure: Explained procedure to patient and verbalizes understanding. Performed a PVR. Patient unable to urinate at this time. States he went to bathroom just prior to leaving workshop. Spend a lengthy time in the bathroom trying. Mikie Lomas, social work lecturer for patient, states he often takes a long time to go. Results of scan: 4 mL The patient tolerated the procedure well. Plan: Appointment with Grace. [facility] 12-28-2022 Instructions Grace Bhatt PA-C - 12/28/2022 10:29 AM EST > 1 year Appt w/ B. MONICA Bhatt, MT, FCO for annual follow-up and refills. documented in this encounter [facility] 12-28-2022 History of Presen t illness Narrative Images from the original note were not included. [facility] PATIENT CLIN[facility] NOTE Some elements copied from his previous note, which have been updated where appropriate, and all reflect current medical decision making from date of this visit. SERVICE DATE: 12/28/2022 SERVICE TIME: 10:24 AM NAME: Mich Farah CHIEF COMPLAINT: Annual Follow-up HISTORY OF PRESENT ILLNESS: Mihc Farah is a 52 year old male an [...] as prescribed > Flomax refills sent to [facility] > 1 year Appt w/ BMONICA Richardson, CIRO, FOC for annual follow-up and refills. MONICA Zee MT, FCO Verified name and date of . CC Post Void Residual HPI: Mich Farah is a 52 year old male. The patient is here now for an appointment with MONICA Zee, MT, PA-COV. Procedure: Explained procedure to patient and verbalizes understanding. Performed a PVR. Patient unable to urinate at this time. States he went to bathroom just prior to leaving workshop. Spend a lengthy time in the bathroom trying. Mikie Lomas, social work lecturer for patient, states he often takes a long time to go. Results of scan: 4 mL The patient tolerated the procedure well. Plan: Appointment with Grace. documented in this encounter [facility] 12-24-2022 Miscellaneous Notes Spoke with Mikie, care navigator, and given provider's message below with verbalized [...] to get his TSH drawn. Juan Nguyen APRN.HEEL PACKER documented in this encounter [facility] 09-27-2022 Note HNO ID: [id number] Author: Kassidy Jang APRN.LUIS MANUEL Service: ? Author Type: Nurse Practitioner Type: Progress Notes Filed: 09/27/2022 1:25 PM Note Text: This is a 52 year old male who presents today with: Patient presents with: Acute Visit: Sore throat HISTORY OF PRESENT ILLNESS: Mich Farah is a 52 year old male. Patient [...] were discussed and patient voices understanding. Kassidy Jang, CECILY.HEEL PACKER This note was partially generated using [employer] (more content not included)... [facility] 09-27-2022 Instructions Kassidy Jang APRN.LUIS MANUEL - 09/27/2022 1:15 PM EDT Symptoms consistent with viral illness, continue supportive care at home. Stay well hydrated. Consult placed for physical therapy to help with gait. Follow up as needed. documented in this encounter [facility] 09-27-2022 History of Presen t illness Narrative This is a 52 year old male who presents today with: Patient presents with: Acute Visit: Sore throat HISTORY OF PRESENT ILLNESS: Mich Farah is a 52 year old male. Patient [...] APRN.CNP This note was partially generated using [employer] voice recognition system. Note was reviewed for accuracy. There may be minor misspellings or grammar miscues with [employer] voice recognition. documented in this encounter [facility] 03-26-2022 Miscellaneous Notes The following approved medication [...] Barby Gunn LPN documented in this encounter [facility] 01-25-2022 Miscellaneous Notes Order sent to Tony Pradhan MD Sully from [facility] calls and states that patient is needing a new Quad Cane. Sully asking if provider can write an order for Quad Cane? Patient uses [facility]. Please review and advise, Akila Payan RN documented in this encounter [facility] 12-22-2021 History of Presen t illness Narrative Images from the original note were not included. [facility] EST[facility] PATIENT CLIN[facility] NOTE Some elements copied from his previous note, which have been updated where appropriate, and all reflect current medical decision making from date of this visit. SERVICE DATE: 12/22/2021 SERVICE TIME: 11:29 AM NAME: Mich Farah CHIEF COMPLAINT: BPH followup HISTORY OF PRESENT ILLNESS: Mich Farah is a 51 year old Male with [...] Abs Lymph 2.22 1.00 - 4.00 k/uL Ocean% 10.7 % Abs Ocean 0.66 <0.87 k/uL Eosin% 3.1 % Abs [...] Post Void Residual- unable to urinate HPI: Mich Farah is a 51 year old male. The [...] Appointment with Grace. documented in this encounter [facility] 12-14-2021 Instructions Kassidy Jang APRN.LUIS MANUEL - 12/14/2021 10:15 AM EST Get repeat labs in 1 year prior to next visit. Keep up coming appointments with specialists. Continue to take all medication as prescribed. Follow up in 1 year or sooner as needed. Health Promotion: - Eat healthy -- go to [email or web address] to get started - Have a yearly [...] - Wear sunscreen documented in this encounter [facility] 12-14-2021 History of Presen t illness Narrative This is a 51 year old male who presents today with: Patient presents with: Physical HISTORY OF PRESENT ILLNESS: Mich Farah is a 51 year old male. Patient presents with: Physical Here in the office for wellness exam. Fruit And Vegetable Packer Mikie present today. Diet: Eating a well balanced diet. 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 Vision:Due this year, wears glasses. Dental: No teeth. Sleep: Sleeps well no complaints. Thyroid: Takign Synthroid 50 mcg daily. Denies any difficulty swallowing, palpitations, heat/cold intolerances. BPH/UTI?: Taking Flomax 0.4 mg at bedtime. Following with urology, Grace Bhatt PA-C in [place]. Next appt next week. Bipolar: Going through [facility] psychiatry, taking Seroquel 300 mg at bedtime, [...] discussed and patient voices understanding. Kassidy Jang APRN.HEEL PACKER This note was partially generated using [employer] voice recognition system. Note was reviewed for accuracy. There may be minor misspellings or grammar miscues with [employer] voice recognition. documented in this encounter [facility] 12-02-2021 Miscellaneous Notes Mikie Lomas with [facility] [...] Mariam Lin LPN documented in this encounter [facility] 07-23-2021 Miscellaneous Notes This has been completed and faxed back to number below. Tatyana Carter Ma Letter printed Vini Pradhan MD Type of letter/form/fax request - celiac/gluten free diet order Form received from fax on 1 floor and placed on MD desk () for completion. Completed form needs to be faxed to [place] [employer] Developmental disabilities services & support Admin at [phone]. Route to [place] when form completed for processing documented in this encounter [facility] Diagnosis Benign prostatic hyperplasia, unspecified whether lower urinary tract symptoms present- Primary documented in this encounter [facility] note* Diagnosis Intellectual disability- Primary Unspecified intellectual disabilities Balance disorder Other symptoms involving nervous and musculoskeletal systems documented in this encounter [facility] note* Diagnosis Hypothyroidism, unspecified type- Primary documented in this encounter [facility] note* Diagnosis Viral illness- Primary Unspecified viral infection, in conditions classified elsewhere and of unspecified site Cerebral palsy, unspecified type (HCC) Gait difficulty Abnormality of gait documented in this encounter [facility] note* Diagnosis Benign prostatic hyperplasia, unspecified whether lower urinary tract symptoms present- Primary documented in this encounter [facility] note* Diagnosis Wellness examination- Primary Hypothyroidism, unspecified type Bipolar 1 disorder (HCC) Bipolar I disorder, most recent episode (or current) unspecified Intellectual disability Unspecified intellectual disabilities Cerebral palsy, unspecified type (HCC) History of BPH Personal history of other specified diseases documented in this encounter [facility] note* Diagnosis Hypothyroidism, unspecified type documented in this encounter [facility] note* Diagnosis Acute cystitis without hematuria- Primary Acute cystitis documented in this encounter [facility] note* Diagnosis Burning with urination- Primary Dysuria documented in this encounter [facility] Reason for Referral Specialty Diagnoses / Procedures Referred By Moe campos Referred To Contact [facility] Diagnoses Cerebral palsy, unspecified type (HCC) Gait difficulty Procedures CONSULT TO PHYSICAL THERAPY PHYSICAL THERAPY EVALUATION HIGH COMPLEX 45 MINS Kassidy Jang, CECILY.HEEL P[employer]ER [address] [place] [address] [facility] [address] [address] Referral ID Status Reason Start Date Expiration Date Visits Requested Visits Authorized [id number] Pending Review Auto-Generat ed Referral 09/27/2022 09/27/2023 [...] or prosecute any alcohol or drug abuse patient.[facility] the event this information is protected by the Federal Confidentiality of Alcohol and Drug Abuse Patient Records regulations: The Federal rules restrict any use of the information to criminally investigate or prosecute any alcohol or drug abuse patient.[facility] the event this information is protected by the Federal Confidentiality of Alcohol and Drug Abuse Patient Records regulations: The Federal rules restrict any use of the information to criminally investigate or prosecute any alcohol or drug abuse patient.[facility] the event this information is protected by the Federal Confidentiality of Alcohol and Drug Abuse Patient Records regulations: The Federal rules restrict any use of the information to criminally investigate or prosecute any alcohol or drug abuse patient.[facility] the event this information is protected by the Federal Confidentiality of Alcohol and Drug Abuse Patient Records regulations: The Federal rules restrict any use of the information to criminally investigate or prosecute any alcohol or drug abuse patient.[facility] the event this information is protected by the Federal Confidentiality of Alcohol and Drug Abuse Patient Records regulations: The Federal rules restrict any use of the information to criminally investigate or prosecute any alcohol or drug abuse patient.[facility] the event this information is protected by the Federal Confidentiality of Alcohol and Drug Abuse Patient Records regulations: The Federal rules restrict any use of the information to criminally investigate or prosecute any alcohol or drug abuse patient.[facility] the event this information is protected by the Federal Confidentiality of Alcohol and Drug Abuse Patient Records regulations: The Federal rules restrict any use of the information to criminally investigate or prosecute any alcohol or drug abuse patient.[facility] the event this information is protected by the Federal Confidentiality of Alcohol and Drug Abuse Patient Records regulations: The Federal rules restrict any use of the information to criminally investigate or prosecute any alcohol or drug abuse patient.[facility] the event this information is protected by the Federal Confidentiality of Alcohol and Drug Abuse Patient Records regulations: The Federal rules restrict any use of the information to criminally investigate or prosecute any alcohol or drug abuse patient.[facility] the event this information is protected by the Federal Confidentiality of Alcohol and Drug Abuse Patient Records regulations: The Federal rules restrict any use of the information to criminally investigate or prosecute any alcohol or drug abuse patient.[facility] the event this information is protected by the Federal Confidentiality of Alcohol and Drug Abuse Patient Records regulations: The Federal rules restrict any use of the information to criminally investigate or prosecute any alcohol or drug abuse patient.[facility] the event this information is protected by the Federal Confidentiality of Alcohol and Drug Abuse Patient Records regulations: The Federal rules restrict any use of the information to criminally investigate or prosecute any alcohol or drug abuse patient.[facility] Reason for Visit (unrecogniz ed section and content) Reason Comments Physical Reason Onset Date Comments Refill Request 12/02/2021 Reason Comments Follow Up Reason Comments Orders Reason Onset Date Comments Refill Request 03/26/2022 Reason Comments Acute Visit Sore throat Reason Comments Results Reason Comments Follow Up Benign Prostatic Hypertrophy Reason Comments Patient Update Care Teams (unrecognized sec tion and content) Central Processing Tech Relationship Specialty Start Date End Date Vini Pradhan MD [address] [place] [address] PCP - General Family Medicine 11/05/10 Central Processing Tech Relationship Specialty Start Date End Date Vini Pradhan MD [address] [place] [address] PCP - General Family Medicine 11/05/10 Central Processing Tech Relationship Specialty Start Date End Date Vini Pradhan MD [address] [place] [address] PCP - General Family Medicine 11/05/10 Central Processing Tech Relationship Specialty Start Date End Date Vini Pradhan MD [address] [place] [address] PCP - General Family Medicine 11/05/10 Central Processing Tech Relationship Specialty Start Date End Date Vini Pradhan MD [address] [place] [address] PCP - General Family Medicine 11/05/10 Central Processing Tech Relationship Specialty Start Date End Date Vini Pradhan MD [address] [place] [address] PCP - General Family Medicine 11/05/10 Central Processing Tech Relationship Specialty Start Date End Date Vini Pradhan MD [address] [place] [address] PCP - General Family Medicine 11/05/10 Central Processing Tech Relationship Specialty Start Date End Date Vini Pradhan MD [address] [place] [address] PCP - General Family Medicine 11/05/10 Central Processing Tech Relationship Specialty Start Date End Date Vini Pradhan MD [address] [place] [address] PCP - General Family Medicine 11/05/10 Central Processing Tech Relationship Specialty Start Date End Date Vini Pradhan MD [address] [place] [address] PCP - General Family Medicine 11/05/10 Central Processing Tech Relationship Specialty Start Date End Date Vini Pradhan MD [address] [place] [address] PCP - General Family Medicine 11/05/10 (unrecognized sect ion and content) No Status Records FoundNo Status Records Found INFORMATION SOURCE (unrecogn ized section and content) DATE CREATED AUTHOR AUTHOR'S ORGANIZ ATION 03/26/2023 [facility] FOR RECORDS PERTAINING TO PATIENTS [...] ON THE PRIMARY CLINICAL RECORDS. [facility] [employer] [facility]. provides no warranty or guarantee of the accuracy or completeness of information in this document.
== END 2023-03-12 19:55 | disposition home or self-care (01) | DRG 812 ==
LOC: ED 13:54 → PCU 03-12 06:58
PROVIDERS: Admitting Provider Internal Medicine; Emergency Provider Emergency Medicine; PCP Family Medicine
DX: T42.71XA Poisoning by unspecified antiepileptic and sedative-hypnotic drugs, accidental (unintentional), initial encounter (principal); G92.9 Unspecified toxic encephalopathy; E03.9 Hypothyroidism, unspecified; I95.2 Hypotension due to drugs; N39.0 Urinary tract infection, site not specified; N40.0 Benign prostatic hyperplasia without lower urinary tract symptoms; F79 Unspecified intellectual disabilities; R53.81 Other malaise; Z79.899 Other long term (current) drug therapy
CPT/HCPCS: 36415; 71045; 71275; 80048; 80053; 80076; 80164; 81001; 82140; 84443; 84484; 85025; 85379; 87077; 87086; 87088; 87186; 87631; 93005; 97162; 97166; 99285; J7030; Q9967; A4216

== ENCOUNTER 2023-07-25 12:26 | Emergency (ER) | payer MEDICAID, SELFPAY ==
[2023-07-25 12:29] VITALS: BP 112/86; PULSE 97; RESP 16; TEMP 37.2; O2SAT 97; BMI 23.0
--- NOTE | 2023-07-25 12:59 | CT_ITS ---
STUDY: CT BRAIN WITHOUT CONTRAST REASON FOR EXAM: Male, 52 years old. Syncope, head injury RADIATION DOSAGE (If Supplied By Facility): CTDIvol = ( 44.99 ) mGy, DLP = ( 1558.48 ) mGycm TECHNIQUE: Transaxial CT imaging of the brain was performed without administration of intravenous contrast material. Individualized dose optimization techniques were used for this CT. COMPARISON: No relevant priors. FINDINGS: Normal soft tissue structures. Normal calvarium. There is mild cerebral atrophy with widening of the extra-axial spaces and ventricular dilatation. Normal white matter tracts of the cerebral hemispheres. Normal basal ganglia and thalami. Normal brainstem. Normal cerebellum. There is no intracranial hemorrhage. There are no findings of an acute ischemic infarction. Normal visualized paranasal sinuses. CT/Brain/Head without Contrast IMPRESSION: Chronic involutional changes of the brain. Electronically Signed: Jose Rosales MD at 13:49 EDT ,
--- NOTE | 2023-07-25 12:59 | EKG12_ITS ---
Test Reason : FALL Blood Pressure : / mmHG Vent. Rate : 085 BPM Atrial Rate : 085 BPM P-R Int : 148 ms QRS Dur : 084 ms QT Int : 336 ms P-R-T Axes : 023 002 030 degrees QTc Int : 399 ms Normal sinus rhythm Normal ECG Confirmed by TEAGAN CHO, ALKA ([id number]), editor at large SARAH MEDINA ([id number]) on 07/26/2023 11:23:52 AM Referred By: Confirmed By:ALKA CANDELARIA MD
--- NOTE | 2023-07-25 13:01 | CT_ITS ---
STUDY: CT CERVICAL SPINE WITHOUT CONTRAST REASON FOR EXAM: Male, 52 years old. History of fall. RADIATION DOSAGE (If Supplied By Facility): CTDIvol = ( 12.30 ) mGy, DLP = ( 237.36 ) mGycm TECHNIQUE: High resolution transaxial imaging was performed without contrast material. Sagittal and coronal images were reconstructed. Individualized dose optimization techniques were used for this CT. COMPARISON: None FINDINGS: Normal craniovertebral junction. Normal anterior atlantoaxial articulation. Normal odontoid process. There is reversal of the normal cervical lordosis. Normal vertebral bodies and posterior osseous elements. C2-3: Normal endplates. Normal disc height and morphology. Normal central canal and intervertebral neuroforamina. C3-4: Normal endplates. Normal disc height and morphology. Normal central canal and intervertebral neuroforamina. C4-5: Facet joint osteoarthritis and hypertrophy. No significant stenosis is seen. C5-6: Minimal anterior listhesis of C5 on C6. Facet joint osteoarthritis. Uncovertebral arthrosis. Mild bilateral neural foraminal stenosis. Mild central canal stenosis. C6-7: Marked degree of disc space narrowing and spondylosis. C7-T1: Normal endplates. Normal disc height and morphology. Normal central canal and intervertebral neuroforamina. Normal visualized soft tissue structures. CT/Spine Cervical without Contras IMPRESSION: Multilevel degenerative changes, as described above. Electronically Signed: Jose Rosales MD at 13:47 EDT ,
--- NOTE | 2023-07-25 13:02 | EX.ED.GENINJ ---
HPI <PRAVEEN Barker - Last Filed: 07/25/23 17:48> History of Present Illness Chief Complaint: Fall Narrative Narrative: Today with his brother due to a fall that occurred this afternoon. Patient has a history of developmental delay, history provided by brother. His brother states that he was standing on the porch and is unsure if he had a syncopal event or a mechanical fall but he did fall and hit his head on the cement. Brother reports that he appeared to be out for about 10 minutes before he became responsive again. He reports that he has seemed off over the last few days and did see his PCP who obtained a urine specimen and started him on Bactrim Tuesday. He does have a laceration to his head but does not been complaining of any other injury, unsure of last tetanus update. PFS <PRAVEEN Barker - Last Filed: 07/25/23 17:48> [facility] Medical History Recurrent UTI Unsteady gait Hypothyroidism Schizophrenia Mental retardation Celiac disease Bipolar disorder Home Medications ?Medication ?Instructions ?Recorded ?Last Taken ?Type benztropine 2 mg tablet 2 mg PO QHS MENTAL HEALTH 08/25/17 03/10/23 History levothyroxine 50 mcg tablet 50 mcg PO DAILY THYROID 08/25/17 08/25/17 History (Synthroid) quetiapine 100 mg tablet 100 mg PO DAILY MENTAL HEALTH 08/25/17 03/11/23 History quetiapine 300 mg tablet (Seroquel) 300 tab PO QHS MENTAL HEALTH 08/25/17 03/10/23 History divalproex 500 mg tablet,delayed 1,000 mg PO QHS 02/14/18 03/10/23 History release docusate sodium 100 mg capsule 100 mg PO BID stool softner 02/14/18 Unknown History (DOK) haloperidol decanoate 100 mg/mL 75 mg IM QMONTH mental health 02/14/18 03/09/23 History intramuscular solution tamsulosin 0.4 mg capsule 0.4 mg PO QHS prostate 02/14/18 03/10/23 History divalproex 250 mg tablet,delayed 250 mg PO BID bipolar 03/11/23 03/11/23 History release sulfamethoxazole 800 1 tab PO Q12H #10 tabs 02/03/24 Unknown Rx mg-trimethoprim 160 mg tablet (Bactrim DS) cephalexin 500 mg capsule 500 mg PO Q12 #14 CAPSULES 07/25/23 Unknown Rx Allergy/AdvReac Type Severity Reaction Status Date / Time gluten AdvReac Other Verified 03/11/23 09:49 Social History household members: family housing: house Smoking Status: Never smoker ROS <PRAVEEN Barker - Last Filed: 07/25/23 17:48> ROS ED Constitutional Constitutional ED: Denies chills or fever(s) Cardiovascular Cardiovascular: Denies chest pain Respiratory/Chest Respiratory/Chest: Denies cough or dyspnea Gastrointestinal Gastrointestinal: Denies abdominal pain, nausea or vomiting Musculoskeletal Musculoskeletal: Denies arthralgias, myalgias or neck pain Integumentary Reports laceration EXAM <PRAVEEN Barker - Last Filed: 07/25/23 17:48> Physical Exam Const Vital Signs: 07/25/23 12:29 07/25/23 12:58 07/25/23 14:27 Temperature 98.9 F Temperature Source Oral Pulse Rate 97 88 Respiratory Rate 16 16 Respiratory Effort Normal Non-Labored Respiratory Depth Normal Respiratory Pattern Normal Blood Pressure 112/86 H 98/76 Blood Pressure Mean 94 83 Pulse Ox 97 98 Oxygen Delivery Method Room Air Room Air Room Air Positive well nourished, well developed and no apparent distress General Appearance ED: well developed HEENT Reports normocephalic and head/scalp atraumatic HEENT Narrative: Abrasion to the forehead without any active bleeding. Mouth ED: Yes moist mucous membranes normal Eyes PERRL and EOMs intact bilaterally Neck full ROM and supple Chest Wall inspection of chest normal Resp normal respiratory effort and clear to auscultation bilaterally Cardio regular rate and regular rhythm GI soft to palpation, non-tender, non-distended and no masses Back/Spine normal ROM and normal to inspection Extremity normal to inspection and full ROM Neuro CN's II-XII intact bilaterally, moves all extremities, no focal motor deficits and no sensory deficits noted Sensorium / Orientation: awake and alert <Dr. Timmy Mason MD - Last Filed: 07/25/23 14:49> Physical Exam Const Vital Signs: 07/25/23 12:29 07/25/23 12:58 07/25/23 14:27 Temperature 98.9 F Temperature Source Oral Pulse Rate 97 88 Respiratory Rate 16 16 Respiratory Effort Normal Non-Labored Respiratory Depth Normal Respiratory Pattern Normal Blood Pressure 112/86 H 98/76 Blood Pressure Mean 94 83 Pulse Ox 97 98 Oxygen Delivery Method Room Air Room Air Room Air [facility] <PRAVEEN Barker - Last Filed: 07/25/23 17:48> [facility] Narrative Medical decision making narrative: Patient presenting due to a fall that occurred this afternoon, unsure whether this was syncope versus mechanical fall. Cardiac workup will be obtained, head CT will be obtained to rule out intracranial bleed and other abnormality. Cervical spine CT to rule out neck fracture. Tetanus will be updated given his forehead abrasion. CT is negative for acute findings, hemoglobin 12.5, BUN 34, creatinine 1.61. He was given IV fluids. He is currently being treated for a UTI with Bactrim, his caregiver did request that we switch that to Keflex as he tolerates this medication better and has been on it previously for UTIs. I did write a prescription for Keflex and he will discontinue the Bactrim. Head abrasion was cleaned, no repair is necessary. Chest x-ray negative for acute findings. I encouraged the patient follow-up with his PCP and he will be discharged in stable condition. I have personally performed a face to face assessment of the patient and have reviewed the GRICEL Note. I performed a substantive portion of the visit including all aspects of the following. My preston findings include: History is 52-year-old male fell off his front porch about 14 inches and onto the driveway striking his head and believes of loss conscious. Patient himself has developmental delay is a very limited informant. History from his brother. Exam is [noise male vital signs stable afebrile. Pulse ox 97% on room air no signs hypoxia. No fever. He does not look septic or toxic. H EENT exam pupils round react light. It is contusion to his face. No lacerations that need to be sewn. No significant bleeding. No bony abnormalities. Neck nontender. Lungs clear to auscultation. Heart regular rhythm rate about 90 no murmur. Chest wall and ribs are nontender. Abdomen soft nontender. Moving all 4 extremities. Normal mobile device engineer strength. Normal dorsi plantarflexion. Nontender no deformity. Back nontender. Neurologically is awake. He is answering questions. He is very limited speech is difficult to understand at his baseline. He has no focal motor deficits.] Medical Decision Making [52-year-old male with fall head injury. CAT scan of his head and neck are unremarkable. Screening labs show baseline anemia. Negative cardiac workup. Negative EKG and chest x-ray.] Other additions or changes: [Repeat exam patient is doing well at 2:40 PM. Exam unchanged.] Lab Data Attestation: I reviewed the patient's lab results. Labs: Laboratory Results - last 24 hr 07/25/23 13:10 WBC 8.2 RBC 4.29 L Hgb 12.5 L Hct 38.1 L MCV 88.8 MCH 29.1 MCHC 32.8 RDW Std Deviation 44.8 H RDW Coeff of Jonathon 13.8 Plt Count 216 MPV 8.9 Immature Gran % (Auto) 0.900 Neut % (Auto) 65.0 Lymph % (Auto) 18.5 L [place] % (Auto) 12.3 H Eos % (Auto) 2.7 Baso % (Auto) 0.6 Absolute Neuts (auto) 5.3 Absolute Lymphs (auto) 1.52 Nucleated RBC % 0 Sodium 138 Potassium 4.7 Chloride 111 H Carbon Dioxide 23.0 Anion Gap 4 L BUN 34 H Creatinine 1.61 H Estim Creat Clear Calc 39.25 Est GFR (MDRD) Af Amer 58 L Est GFR (MDRD) Non-Af 48 L BUN/Creatinine Ratio 21.1 H Glucose 108 H Calcium 9.2 Troponin I High Sens 22 Radiography X-Ray: Read by ED Physician Diagnostic Testing: Clinical Impression(s) from Imaging Studies Brain CT 07/25/23 12:59 IMPRESSION: Chronic involutional changes of the brain. Electronically Signed: Jose Rosales MD at 13:49 EDT , Cervical Spine CT 07/25/23 13:01 IMPRESSION: Multilevel degenerative changes, as described above. Electronically Signed: Jose Rosales MD at 13:47 EDT , Chest X-Ray 07/25/23 13:33 IMPRESSION: Mild increased markings at the lung bases slightly worse on the left side suggestive of linear bibasilar atelectasis. Electronically Signed: Jose Rosales MD at 14:26 EDT , EKG Initial EKG: Comments: 85 bpm, normal sinus rhythm, no ST elevation, interpreted by attending ED physician <Dr. Timmy Mason MD - Last Filed: 07/25/23 14:49> [facility] MDM Narrative Medical decision making narrative: Patient presenting due to a fall that occurred this afternoon, unsure whether this was syncope versus mechanical fall. Cardiac workup will be obtained, head CT will be obtained to rule out intracranial bleed and other abnormality. Cervical spine CT to rule out neck fracture. Tetanus will be updated given his forehead laceration. I have personally performed a face to face assessment of the patient and have reviewed the GRICEL Note. I performed a substantive portion of the visit including all aspects of the following. My preston findings include: History is 52-year-old male fell off his front porch about 14 inches and onto the driveway striking his head and believes of loss conscious. Patient himself has developmental delay is a very limited informant. History from his brother. Exam is [noise male vital signs stable afebrile. Pulse ox 97% on room air no signs hypoxia. No fever. He does not look septic or toxic. H EENT exam pupils round react light. It is contusion to his face. No lacerations that need to be sewn. No significant bleeding. No bony abnormalities. Neck nontender. Lungs clear to auscultation. Heart regular rhythm rate about 90 no murmur. Chest wall and ribs are nontender. Abdomen soft nontender. Moving all 4 extremities. Normal mobile device engineer strength. Normal dorsi plantarflexion. Nontender no deformity. Back nontender. Neurologically is awake. He is answering questions. He is very limited speech is difficult to understand at his baseline. He has no focal motor deficits.] Medical Decision Making [52-year-old male with fall head injury. CAT scan of his head and neck are unremarkable. Screening labs show baseline anemia. Negative cardiac workup. Negative EKG and chest x-ray.] Other additions or changes: [Repeat exam patient is doing well at 2:40 PM. Exam unchanged.] History & Record Review Discussion w/independent historian: Patient and Family Additional record(s) reviewed:: Prior inpatient record, Prior outpatient record, Prior ED visit and Prior labs Lab Data Lab results narrative: CBC white count 8. H&H 12.5 and 38. Platelets 216. Electrolytes show gap 4. BUN and creatinine are 34 and 1.6. Glucose 108. Troponin 22. Labs: Laboratory Results - last 24 hr 07/25/23 13:10 WBC 8.2 RBC 4.29 L Hgb 12.5 L Hct 38.1 L MCV 88.8 MCH 29.1 MCHC 32.8 RDW Std Deviation 44.8 H RDW Coeff of Jonathon 13.8 Plt Count 216 MPV 8.9 Immature Gran % (Auto) 0.900 Neut % (Auto) 65.0 Lymph % (Auto) 18.5 L [place] % (Auto) 12.3 H Eos % (Auto) 2.7 Baso % (Auto) 0.6 Absolute Neuts (auto) 5.3 Absolute Lymphs (auto) 1.52 Nucleated RBC % 0 Sodium 138 Potassium 4.7 Chloride 111 H Carbon Dioxide 23.0 Anion Gap 4 L BUN 34 H Creatinine 1.61 H Estim Creat Clear Calc 39.25 Est GFR (MDRD) Af Amer 58 L Est GFR (MDRD) Non-Af 48 L BUN/Creatinine Ratio 21.1 H Glucose 108 H Calcium 9.2 Troponin I High Sens 22 Radiography Chest X-Ray - ED: 1 View, Read by ED Physician, Read by Radiologist, Heart, Lungs, Mediastinum, Bony Structures, No Acute Disease and Chronic Changes Diagnostic Testing: Clinical Impression(s) from Imaging Studies Brain CT 07/25/23 12:59 IMPRESSION: Chronic involutional changes of the brain. Electronically Signed: Jose Rosales MD at 13:49 EDT , Cervical Spine CT 07/25/23 13:01 IMPRESSION: Multilevel degenerative changes, as described above. Electronically Signed: Jose Rosales MD at 13:47 EDT , Chest X-Ray 07/25/23 13:33 IMPRESSION: Mild increased markings at the lung bases slightly worse on the left side suggestive of linear bibasilar atelectasis. Electronically Signed: Jose Rosales MD at 14:26 EDT , Chest x-ray portable, single view, interpreted by myself and radiologist shows no acute abnormality. Chronic changes. No pneumonia. Normal cardiac silhouette. No pneumothorax. No obvious rib fractures. Rhythm Strip Rhythm Strip: Sinus Rhythm Rate: 85 Ectopy: None EKG Initial EKG: Attestation: I personally reviewed and interpreted this EKG as follows: Interpretation: Sinus Rhythm and No Acute Injury Pattern Discharge Plan Triage Chief Complaint: Fall ED Midlevel Provider: Prachi Danielle ED Provider: Timmy Mason Dx/Rx/DC Orders Clinical Impression: Fall, Head injury, History of UTI Instructions: ED Head Injury (Adult) Prescriptions: New cephalexin 500 mg capsule 500 mg PO Q12 Qty: 14 0RF No Action quetiapine [Seroquel] 300 MG tablet 300 tab PO QHS quetiapine 100 MG tablet 100 mg PO DAILY Rx Instructions: take in the am levothyroxine [Synthroid] 50 MCG tablet 50 mcg PO DAILY benztropine 2 MG tablet 2 mg PO QHS divalproex 500 MG tablet,delayed release (DR/EC) 1,000 mg PO QHS Patient Comments: pt takes 250mg in the am and pm, as well as two 500mg tablets in the pm tamsulosin 0.4 MG capsule 0.4 mg PO QHS haloperidol decanoate 100 MG/ML solution 75 mg IM QMONTH docusate sodium [DOK] 100 MG capsule 100 mg PO BID divalproex 250 mg tablet,delayed release (DR/EC) 250 mg PO BID Patient Comments: pt takes 250mg bid, as well as two 500mg tablets in the evening sulfamethoxazole-trimethoprim [Bactrim DS] 800-160 mg tablet 1 tab PO Q12H Qty: 10 0RF Stand Alone Forms: ED Work / School Excuse Primary Care Provider: Bry Duran Referrals: Bry Duran MD [Primary Care Provider] - Activity Restrictions/Additional Instructions: Follow-up with his doctor to ensure he is improving. Plenty of fluids and rest. Stop the Bactrim and start antibiotic Keflex for the possible UTI. Print Language: Vietnamese Disposition Disposition: Home, Self Care Discharge Date/Time: 07/25/23 15:55
[2023-07-25 13:16] LABS: Absolute Lymphocyte Count 1.52 X10^3/uL (0.83-4.51); Absolute Neutrophil Count 5.3 X10^3/uL (2.0-7.7); Basophil# 0.05 X10^3/uL; Basophil% 0.6 % (0-1); Eosinophil# 0.22 X10^3/uL; Eosinophils% 2.7 % (0-5); Hematocrit 38.1 % (40-54); Hemoglobin 12.5 g/dL (13.0-16.5); Lymphocyte # 1.52 X10^3/ul (0.83-4.51); Lymphocyte % 18.5 % (19-41); Mean Corp Hgb Conc 32.8 g/dL (32-36); Mean Corpuscular Hgb 29.1 pg (27.0-32.0); Mean Corpuscular Volume 88.8 fL (80-94); Mean Platelet Vol. 8.9 fl (6.2-12.0); Monocyte# 1.01 X10^3/uL; Monocyte% 12.3 % (0-10); NRBC Flagged by Analyzer 0 % (0-5); Neutrophil # 5.34 X10^3/uL (2.7-7.7); Platelet Count 216 K/mm3 (150-450); RBC Distribution Width CV 13.8 % (11.6-14.6); RBC Distribution Width SD 44.8 fl (35.1-43.9); Red Blood Count 4.29 M/mm3 (4.6-6.2); White Blood Count 8.2 K/mm3 (4.4-11.0)
--- NOTE | 2023-07-25 13:33 | RAD_ITS ---
STUDY: X-RAY CHEST REASON FOR EXAM: Male, 52 years old. Syncope TECHNIQUE: Single AP portable view of the chest. COMPARISON: Comparison is made with prior study dated March 11, 2023. FINDINGS: Mild increased linear markings at the lung bases slightly more prominent on the left side suggestive of a bibasilar atelectasis. There is no demonstrated pleural abnormality. Normal size heart. Normal mediastinum and loyda. Normal visualized pulmonary arteries. Normal visualized aortic arch and descending thoracic aorta. Normal visualized thoracic spine. Normal visualized ribs, clavicles, and shoulders. There is no demonstrated abnormality of the visualized soft tissue structures of the upper abdomen. RAD/Chest 1 View (Portable) IMPRESSION: Mild increased markings at the lung bases slightly worse on the left side suggestive of linear bibasilar atelectasis. Electronically Signed: Jose Rosales MD at 14:26 EDT ,
[2023-07-25 13:38] LABS: Anion Gap 4 (5-15); BUN 34 mg/dL (7-18); BUN/Creat Ratio 21.1 RATIO (10-20); Calcium,Total 9.2 mg/dL (8.5-10.1); Chloride 111 mmol/L (98-107); Creatinine, Serum 1.61 mg/dL (0.70-1.30); EST Glomerular Filtration Rate 48 mL/min (>60); Est Glom Filt Rate - Afr Amer 58 mL/min (>60); Estimated Creatinine Clearance 39.25 ml/min; Glucose 108 mg/dL (74-106); Potassium 4.7 mmol/L (3.5-5.1); Sodium Level 138 mmol/L (136-145); Troponin-I HS 22 pg/mL (3.0-78.0)
[2023-07-25] MEDS: Diphth,Pertuss(Acell),Tet Vac 0.5 ML Vial IM (14:00)
[2023-07-25 14:27] VITALS: BP 98/76; PULSE 88; RESP 16; O2SAT 98
[2023-07-25] MEDS: 0.9% Normal Saline (1000mL) 1,000 ML 999 ML IV (15:04)
--- NOTE | 2023-07-25 15:04 | ED.RN ---
Pt refusing keep monitor on.
== END 2023-07-25 15:55 | disposition home or self-care (01) ==
PROVIDERS: Physician Assistant; Emergency Provider Emergency Medicine; PCP Family Medicine; Visit Provider Emergency Medicine
DX: S09.90XA Unspecified injury of head, initial encounter (principal); F20.9 Schizophrenia, unspecified; F31.9 Bipolar disorder, unspecified; W19.XXXA Unspecified fall, initial encounter
CPT/HCPCS: 70450; 71045; 72125; 80048; 84484; 85025; 90715; 93005; 96360; 99285; J7030; A4216

== ENCOUNTER 2023-07-27 16:59 | Emergency (ER) | payer MEDICAID, SELFPAY ==
[2023-07-27] VITALS (7 sets, daily range): BP systolic 115–134; BP diastolic 74–90; PULSE 68–94; RESP 18–20; TEMP 36.1–36.8; O2SAT 94–95; BMI 22.3
--- NOTE | 2023-07-27 19:38 | EKG12_ITS ---
Test Reason : DYSRHYTHMIA Blood Pressure : / mmHG Vent. Rate : 072 BPM Atrial Rate : 072 BPM P-R Int : 168 ms QRS Dur : 094 ms QT Int : 382 ms P-R-T Axes : 039 -12 027 degrees QTc Int : 418 ms Normal sinus rhythm Normal ECG Confirmed by TEAGAN CHO, ALKA ([id number]), purchasing expeditor TREV BRADLEY ([id number]) on 07/28/2023 10:25:26 AM Referred By: Confirmed By:ALKA CANDELARIA MD
--- NOTE | 2023-07-27 19:40 | EX.ED.DYSGE1 ---
HPI History of Present Illness Chief Complaint: General Illness Narrative Narrative: Patient with past medical history of schizophrenia, MRDD, celiac disease presents with his family because of abnormal behavior and aggression. They state that at times when he has a urinary tract infection, he has behavioral problems. It also happens when he eats too much gluten because he has celiac disease. They relate history that they took him to see his primary care provider on Tuesday, approximately 5 days ago, and started him on Bactrim even though they did not necessarily see a urinary tract infection. He has been having problems with his behavior for the last week or so. They then report that on Tuesday they were seen in the emergency department and wanted his medication changed to Keflex because that is what is worked for him in the past. They present him again today because they have seen no change in his behavior. They think that he needs his Depakote level checked because he takes that along with Seroquel he has not had a medication adjustment in quite some time. Additionally, they state that he has not been hospitalized at [facility] for years. [facility] Medical History Recurrent UTI Unsteady gait Hypothyroidism Schizophrenia Mental retardation Celiac disease Bipolar disorder Home Medications ?Medication ?Instructions ?Recorded ?Last Taken ?Type benztropine 2 mg tablet 2 mg PO Q MENTAL HEALTH 08/25/17 03/10/23 History levothyroxine 50 mcg tablet 50 mcg PO DAILY THYROID 08/25/17 08/25/17 History (Synthroid) quetiapine 100 mg tablet 100 mg PO DAILY MENTAL HEALTH 08/25/17 03/11/23 History quetiapine 300 mg tablet (Seroquel) 300 tab PO Q MENTAL HEALTH 08/25/17 03/10/23 History divalproex 500 mg tablet,delayed 1,000 mg PO QHS 02/14/18 03/10/23 History release docusate sodium 100 mg capsule 100 mg PO BID stool softner 02/14/18 Unknown History (DOK) haloperidol decanoate 100 mg/mL 75 mg IM QMONTH [facility] 02/14/18 03/09/23 History intramuscular solution tamsulosin 0.4 mg capsule 0.4 mg PO QHS prostate 02/14/18 03/10/23 History divalproex 250 mg tablet,delayed 250 mg PO BID bipolar 03/11/23 03/11/23 History release sulfamethoxazole 800 1 tab PO Q12H #10 tabs 03/12/23 Unknown Rx mg-trimethoprim 160 mg tablet (Bactrim DS) cephalexin 500 mg capsule 500 mg PO Q12 #14 CAPSULES 07/25/23 Unknown Rx Allergy/AdvReac Type Severity Reaction Status Date / Time gluten AdvReac Other Verified 07/27/23 17:02 Social History household members: family housing: house Smoking Status: Never smoker ROS ROS ED Review of Systems ROS Unobtainable: due to mental condition EXAM Physical Exam Narrative Exam Narrative: Afebrile. Vital signs noted. Regular rate and rhythm. Lungs clear to auscultation bilaterally. Abdomen soft nontender with normal active bowel sounds. Occasionally verbal. No evidence of aggression or behavioral problems now. Const Vital Signs: 07/27/23 16:59 07/27/23 17:02 07/27/23 18:59 Temperature 96.9 F L 96.9 F L Temperature Source Temporal Temporal Pulse Rate 94 94 83 Respiratory Rate 19 H 19 H 18 Respiratory Effort Respiratory Pattern Blood Pressure 119/90 H 119/90 H 115/79 Blood Pressure Mean 99 99 91 Pulse Ox 95 95 95 Oxygen Delivery Method Room Air Room Air Room Air 07/27/23 19:31 07/27/23 20:00 07/27/23 20:00 Temperature 98.2 F 97.3 F L Temperature Source Oral Temporal Pulse Rate 80 69 68 Respiratory Rate 18 20 H 20 H Respiratory Effort Respiratory Pattern Blood Pressure 115/79 134/83 H 134/83 H Blood Pressure Mean 91 100 100 Pulse Ox 94 94 94 Oxygen Delivery Method Room Air Room Air Room Air 07/27/23 20:48 Temperature Temperature Source Pulse Rate Respiratory Rate Respiratory Effort Normal Respiratory Pattern Normal Blood Pressure Blood Pressure Mean Pulse Ox Oxygen Delivery Method MDM MDM MDM Narrative Medical decision making narrative: Family states that when they brought him in 2 hours ago in the waiting room he would not sit in a chair or be still. He is very calm currently. I can recheck a urinalysis and do medical clearance for evaluation by crisis, but as it stands currently I am unsure if he requires hospitalization because seems to be more of a behavioral problem. Medical clearance labs will be obtained and crisis will be contacted for evaluation. I will also obtain a valproic acid level although he does not take this for seizures. EKG was obtained and interpreted by myself independently as normal sinus rhythm at 72 bpm without ectopy or acute ST changes. No STEMI. I reviewed his laboratory work and he has normal white count of 6.9, hemoglobin 12.5, hematocrit 37.3, platelet count normal at 219. Sodium is normal at 136 with potassium 3.6, chloride normal at 107. BUN of 33 with creatinine 0.91. Glucose appropriately elevated at 107 with an anion gap low at 4. LFTs are grossly unremarkable. Urine for drugs of abuse is negative and ethanol level is negative as well. Depakote level within normal limits in the 50s. Urinalysis is negative for infection with 0-5 WBCs. His medical clearance labs are essentially negative. Initially I had discussed with the family the possibility of a crisis evaluation. However, he has been calm throughout his emergency department stay, and they prefer to take him home and follow-up with his psychiatrist as an outpatient. They are declining crisis evaluation at this time and would like to be discharged. They state that he has had a lot of mood swings and would be crying at times. He may need an outpatient medication adjustment. I feel he can be discharged to follow-up. Return instructions to the emergency department were reviewed. Family is comfortable with the plan. Disposition is discharged home in stable condition. History & Record Review Discussion w/independent historian: Family Lab Data Attestation: I reviewed the patient's lab results. Labs: Laboratory Results - last 24 hr 07/27/23 07/27/23 19:43 20:13 WBC 6.9 RBC 4.27 L Hgb 12.5 L Hct 37.3 L MCV 87.4 MCH 29.3 MCHC 33.5 RDW Std Deviation 43.3 RDW Coeff of Jonathon 13.6 Plt Count 219 MPV 9.1 Immature Gran % (Auto) 0.400 Neut % (Auto) 61.6 Lymph % (Auto) 20.4 [place] % (Auto) 14.0 H Eos % (Auto) 3.2 Baso % (Auto) 0.4 Absolute Neuts (auto) 4.2 Absolute Lymphs (auto) 1.40 Nucleated RBC % 0 Sodium 136 Potassium 3.6 Chloride 107 Carbon Dioxide 25.0 Anion Gap 4 L BUN 33 H Creatinine 0.91 Estim Creat Clear Calc 69.45 Est GFR (MDRD) Af Amer 111 Est GFR (MDRD) Non-Af 92 BUN/Creatinine Ratio 36.2 H Glucose 107 H Calcium 9.5 Total Bilirubin 0.50 AST 33 ALT 21 Alkaline Phosphatase 75 Total Protein 7.9 Albumin 3.4 Globulin 4.5 H Albumin/Globulin Ratio 0.8 L Urine Color Yellow Urine Clarity Clear Urine pH 6.0 Ur Specific [place] 1.020 Urine Protein Negative Urine Glucose (UA) Normal Urine Ketones 5 H Urine Occult Blood Negative Urine Nitrite Negative Urine Bilirubin Negative Urine Urobilinogen Normal Ur Leukocyte Esterase 25 H Urine RBC 0 SEEN Urine WBC 0-5 SEEN Ur Squamous Epith Cells 0 SEEN Urine Bacteria 0 SEEN Urine Mucus RARE Urine Opiates Screen NEGATIVE Urine Methadone Screen NEGATIVE Ur Barbiturates Screen NEGATIVE Valproic Acid 56 Ur Phencyclidine Scrn NEGATIVE Ur Amphetamines Screen NEGATIVE MDMA (Ecstasy) Screen NEGATIVE U Benzodiazepines Scrn NEGATIVE Urine Cocaine Screen NEGATIVE U Cannabinoids Screen NEGATIVE Ur Drug Screen Comment Ethyl Alcohol < 3.0 Discharge Plan Triage Chief Complaint: General Illness ED Provider: Kee Vivas Dx/Rx/DC Orders Clinical Impression: Mood swings, Behavior disturbance, Schizophrenia Instructions: ED Psychosis, ED Schizophrenia, General Prescriptions: No Action quetiapine [Seroquel] 300 MG tablet 300 tab PO QHS quetiapine 100 MG tablet 100 mg PO DAILY Rx Instructions: take in the am levothyroxine [Synthroid] 50 MCG tablet 50 mcg PO DAILY benztropine 2 MG tablet 2 mg PO QHS divalproex 500 MG tablet,delayed release (DR/EC) 1,000 mg PO QHS Patient Comments: pt takes 250mg in the am and pm, as well as two 500mg tablets in the pm tamsulosin 0.4 MG capsule 0.4 mg PO QHS haloperidol decanoate 100 MG/ML solution 75 mg IM QMONTH docusate sodium [DOK] 100 MG capsule 100 mg PO BID divalproex 250 mg tablet,delayed release (DR/EC) 250 mg PO BID Patient Comments: pt takes 250mg bid, as well as two 500mg tablets in the evening sulfamethoxazole-trimethoprim [Bactrim DS] 800-160 mg tablet 1 tab PO Q12H Qty: 10 0RF cephalexin 500 mg capsule 500 mg PO Q12 Qty: 14 0RF Primary Care Provider: Bry Duran Referrals: Bry Duran MD [Primary Care Provider] - Activity Restrictions/Additional Instructions: Follow up with his psychiatrist as soon as possible. He may need a medication adjustment especially for his mood disorders. Print Language: Ukrainian Disposition Disposition: Home, Self Care
[2023-07-27 20:03] LABS: Absolute Neutrophil Count 4.2 X10^3/uL (2.0-7.7); Basophil# 0.03 X10^3/uL; Basophil% 0.4 % (0-1); Eosinophil# 0.22 X10^3/uL; Eosinophils% 3.2 % (0-5); Hematocrit 37.3 % (40-54); Hemoglobin 12.5 g/dL (13.0-16.5); Lymphocyte % 20.4 % (19-41); Mean Corp Hgb Conc 33.5 g/dL (32-36); Mean Corpuscular Hgb 29.3 pg (27.0-32.0); Mean Corpuscular Volume 87.4 fL (80-94); Mean Platelet Vol. 9.1 fl (6.2-12.0); Monocyte# 0.96 X10^3/uL; NRBC Flagged by Analyzer 0 % (0-5); Neutrophil # 4.23 X10^3/uL (2.7-7.7); Neutrophil % 61.6 % (47-70); Platelet Count 219 K/mm3 (150-450); RBC Distribution Width CV 13.6 % (11.6-14.6); RBC Distribution Width SD 43.3 fl (35.1-43.9); Red Blood Count 4.27 M/mm3 (4.6-6.2); White Blood Count 6.9 K/mm3 (4.4-11.0)
[2023-07-27 20:33] LABS: ALB/GLOB Ratio 0.8 RATIO (0.9-2.4); AST(SGOT) 33 U/L (15-37); Alanine Aminotransfer ALT/SGPT 21 U/L (16-61); Albumin, Serum 3.4 g/dL (3.2-5.0); Alkaline Phosphatase 75 U/L (45-117); Anion Gap 4 (5-15); BUN 33 mg/dL (7-18); BUN/Creat Ratio 36.2 RATIO (10-20); Calcium,Total 9.5 mg/dL (8.5-10.1); Chloride 107 mmol/L (98-107); Creatinine, Serum 0.91 mg/dL (0.70-1.30); EST Glomerular Filtration Rate 92 mL/min (>60); Est Glom Filt Rate - Afr Amer 111 mL/min (>60); Estimated Creatinine Clearance 69.45 ml/min; Globulin 4.5 g/dL (2.2-4.2); Glucose 107 mg/dL (74-106); Potassium 3.6 mmol/L (3.5-5.1); Protein, Total 7.9 g/dL (6.4-8.2); Sodium Level 136 mmol/L (136-145)
[2023-07-27 20:51] LABS: Bacteria 0 SEEN /hpf (None Seen); Red Blood Cells-Urine 0 SEEN /hpf (0-5); Squamous Epithelial Cells - UA 0 SEEN /hpf (0-5)
[2023-07-27 20:54] LABS: Alcohol, Blood (Medical)-Serum < 3.0 mg/dL; Valproic Acid (Depakene) Level 56 ug/mL (50-100)
[2023-07-27 20:54] LABS: Color, Urine Yellow (Yellow); Glucose, Dipstick Normal (Normal); Ketone-Dipstick 5 mg/dl (Negative); Leukocyte Esterase-Dipstick 25 /ul (Negative); Nitrite-Dipstick Negative (Negative); Occult Blood-Urine Negative /ul (Negative); Protein-Dipstick Negative (Negative); Urine Bilirubin Dipstick Negative (Negative); Urine Clarity Clear (Clear); Urine Urobilinogen Normal (Normal)
[2023-07-27 20:55] LABS: Amphetamine Urine VISTA NEGATIVE (<1000 ng/mL); Barbiturate Urine VISTA NEGATIVE (< 200 ng/mL); Benzodiazepine Urine VISTA NEGATIVE (< 200 ng/mL); Cocaine Urine VISTA NEGATIVE (< 300 ng/mL); Ecstacy Urine VISTA NEGATIVE (< 500 ng/mL); Methadone Urine VISTA NEGATIVE (< 300 ng/mL); PCP Urine VISTA NEGATIVE (< 25 ng/mL); THC Urine VISTA NEGATIVE (< 50 ng/mL); Vista UDS pH Range 5
[2023-07-27 21:05] LABS: Mucous, Urine RARE /hpf (<or=2+); White Blood Cells 0-5 SEEN /hpf (0-5)
== END 2023-07-27 22:04 | disposition home or self-care (01) ==
PROVIDERS: Emergency Provider Emergency Medicine; PCP Family Medicine; Visit Provider Emergency Medicine
DX: F20.9 Schizophrenia, unspecified (principal); F31.9 Bipolar disorder, unspecified; K90.0 Celiac disease
CPT/HCPCS: 80053; 80164; 80307; 80320; 81001; 85025; 93005; 99282; G0480

== ENCOUNTER → 2024-05-28 | Outpatient (CLI) | payer MEDICAID, SELFPAY ==
--- NOTE | 2024-05-29 10:50 | ST.MBS ---
Modified Barium Swallow Patient Information Study Date: 05/28/24 Study Time: 13:00 Direct Billable Minutes: 100 Total Minutes procedure & reportin Diagnosis: Dysphagia R13.10 Referring Physician: Bisi Jang Reason for Referral: The patient was referred for repeat MBSS to re-evaluate swallow function from prior MBSS 03/02/2018. Prior MBSS revealed mild oral dysphagia and moderate-severe pharyngeal dysphagia w/ silent aspiration of thin and mildly thickened liquids. He was recommended for mechanical soft textures / moderately thick liquids. recreation facility manager, Mikie, attended this evaluation with the patient and provided further history. The patient has been consuming regular textures / thin liquids most of the time. 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 At home, she believes he has regular textures / thin liquids without concern for swallowing difficulty. Medical History: PMH: MRDD, hypothyroidism, Celiac disease, Schizophrenia, Bipolar 1, unsteady gait. Current Diet Ordered: Regular textures / thin liquids Mental Status: Impaired Respiratory Status: Oxygenating on Room Air Penetration-Aspiration Scale Penetration-Aspiration Scale: OBJECTIVE ASSESSMENT OF SWALLOW FUNCTION (QUANTITATIVE ? PER TRIAL): PENETRATION / ASPIRATION SCALE (CARRANZA): 1 = does not enter airway 2 = enters airway/above vocal folds/ejected 3 = enters airway/above vocal folds/not ejected 4 = enters airway/contacts vocal folds/ejected 5 = enters airway/contacts vocal folds/not ejected 6 = enters airway/below vocal folds/ejected 7 = enters airway/below vocal folds/not ejected despite effort 8 = enters airway/below vocal folds/no effort VIDEOFLOROSCOPIC SCALE SCORE (CARRANZA): Grade I = aspiration of material that has penetrated into the laryngeal vestibule, intact cough reflex Grade II = aspiration < 10 % of the bolus, intact cough reflex Grade III = aspiration of < 10 % of the bolus, reduced cough reflex or aspiration of > 10 % of the bolus, intact cough reflex Grade IV = aspiration of > 10 % of the bolus, reduced cough reflex Penetration-Aspiration Scale Score Thin Liquid via teaspoon: Result: 2= enter airway/above vocal folds/ejected Thin Liquid via teaspoon Trial 2: Result: 8= enters airway/below vocal folds/no effort Thin Liquid via large single sip: cup: Result: 8= enters airway/below vocal folds/no effort Comment: Cued cough and re-swallow after the swallow = not effective. Thin Liquid via small single sip: cup: Result: 8= enters airway/below vocal folds/no effort Thin Liquid via large single sip: cup Trial 2: Result: 8= enters airway/below vocal folds/no effort [place] Thick Liquid via small single sip: cup: Result: 1= does not enter airway Thin Liquid via small single sip: cup Effortful swallow: Result: 8= enters airway/below vocal folds/no effort Pudding via teaspoon: Result: 1= does not enter airway Comment: Esophageal screen - Trace retention in UES; otherwise, complete clearance. Diced peaches coated in barium pudding: Result: 1= does not enter airway [place] Thick Liquid via small single sip: cup Trial 2: Result: 1= does not enter airway Thin Liquid via small single sip: cup [place] t[place]: Result: 8= enters airway/below vocal folds/no effort Thin Liquid via small single sip: cup Chin t[place] Trial 2: Result: 5= enters airways/contacts vocal folds/not ejected Oral Phase Labial Seal: No Labial Escape Tongue Control During Bolus Hold: Posterior escape of greater than half of bolus Bolus Preparation/Mastication: Disorganized chewing/mashing with solid pieces of bolus unchewed Bolus Transport/Lingual Motion: Slowed tongue motion Oral Residue: Residue collection on oral structures Pharyngeal Phase Initiation of Pharyngeal Swallow: Bolus head in pyriforms Soft Palate Elevation: No bolus between soft palate and pharyngeal wall Laryngeal Elevation: Partial superior movement thyroid cart/partial apprx aryt-epig petiole Anterior Hyoid Excursion: Partial anterior movement Epiglottic Movement: Complete inversion Laryngeal Vestibule Closure at Height of Swallow: Incomplete; narrow column of air/contrast in laryngeal vestibule Pharyngeal Stripping Wave: Present - complete Pharyngoesophageal Segment Opening: Parital distension and partial duration; parital obstruction of flow Tongue Base Retraction: Trace column of contrast between tongue base & post. pharyngeal wall Pharyngeal Residue: Trace residue within or on pharyngeal structures Esophageal Phase Esophageal Clearance: Esophageal retention Diagnosis/Impression Diagnosis: Moderate oropharyngeal dysphagia R13.12 Impression: Pt continues w/ small CP bar and osteophytes at C5-C6 noted during previous MBSS. The oral phase is primarily marked by... -Decreased bolus control w/ posterior loss of >1/2 the bolus to the pharynx prior to swallow onset. -Slowed tongue motion for A-P transport. -Disorganized mastication w/ small pieces of peaches appeared somewhat un-chewed. -Mild-moderate oral residues, which were seen spilling to the pharynx after the swallow. He independently completed multiple swallows as needed to clear these residues. The pharyngeal phase is primarily marked by... -Delayed swallow onset. -Decreased airway closure due to decreased laryngeal elevation and poor anterior hyoid excursion. -SILENT aspiration of thin liquids via tsp, cup, and cup w/ chin tuck and effortful swallows. The esophageal phase is primarily marked by... -Minimal retention of barium in small pouch-like collection just above small CP bar, which would mostly clear to the esophagus after the swallow. Trace/minimal barium in the upper esophagus. No GI consult recommended at this time. Recommendations Diet: Soft and Bite Sized Textures and Mildly Thick Liquids Compensatory Strategies: Small Bites, Small Sips, Slow Rate, Sitting upright and Remain sitting upright for 30 minutes after PO intake Recommend Repeat Modified Barium Swallow: Yes Comment: Repeat MBSS in 2-4 months if participating in oropharyngeal strengthening exercise program with speech therapy. Need for Skilled Speech Therapy Services: Yes Comment: -Train the patient, family, and workshop staff in use of strategies to decrease risk for aspiration. Consider use of [place] bolus control cup to help patient control bolus size when drinking. -Ongoing assessment of diet tolerance of recommended textures. -Train the patient in oropharyngeal exercise program to improve bolus control, airway closure, and swallow onset (lingual resistance, lingual coordination, effortful, Brianna). Education Completed: 1. Described result of evaluation., 2. Pt understands evaluation & agrees with goals and treatment plan. and 7. Pt requires further education on strategies & risks. Status Active ST Patient: Active Contact Information [facility]:: Shani Garg M.A. CCC-MANUFACTURING TEAM LEADER? Speech-Language Pathologist?? [facility] [address] [place] [address]? [email or web address]?? [phone]
== END | disposition home or self-care (01) ==
LOC: RAD 12:52
PROVIDERS: PCP Family Medicine; Referring Provider Nurse Practitioner Family; Visit Provider Nurse Practitioner Family
DX: R13.10 Dysphagia, unspecified (principal)
CPT/HCPCS: 74230; 92611

== ENCOUNTER 2024-10-19 11:24 | Emergency (ER) | payer MEDICAID, SELFPAY ==
[2024-10-19 11:24] VITALS: BP 131/90; PULSE 86; RESP 14; TEMP 37.2; O2SAT 98; BMI 25.8
--- NOTE | 2024-10-19 11:47 | EX.ED.DYSGE1 ---
HPI History of Present Illness Chief Complaint: Complaint Narrative Narrative: Patient is a 54-year-old male with past medical history of hypothyroidism, schizophrenia, MRDD, celiac disease, bipolar disorder who presented to the emergency department with a chief complaint of urinary symptoms. According to the caregiver at bedside she received a phone call from the workshop and noted that he was having urinary symptoms complaining that he was unable to urinate. Here in the emergency department the patient states that he did urinate. States that he does get frequent urinary tract infections and has prostate issues for which she is on medication for. [facility] Medical History Recurrent UTI Unsteady gait Hypothyroidism Schizophrenia Mental retardation Celiac disease Bipolar disorder Home Medications ?Medication ?Instructions ?Recorded ?Last Taken ?Type benztropine 2 mg tablet 2 mg PO QHS MENTAL HEALTH 08/25/17 03/10/23 History levothyroxine 50 mcg tablet 50 mcg PO DAILY THYROID 08/25/17 08/25/17 History (Synthroid) quetiapine 100 mg tablet 100 mg PO DAILY MENTAL HEALTH 08/25/17 03/11/23 History quetiapine 300 mg tablet (Seroquel) 300 tab PO QHS MENTAL HEALTH 08/25/17 03/10/23 History divalproex 500 mg tablet,delayed 1,000 mg PO QHS 02/14/18 03/10/23 History release docusate sodium 100 mg capsule 100 mg PO BID stool softner 02/14/18 Unknown History (DOK) haloperidol decanoate 100 mg/mL 75 mg IM QMONTH mental health 02/14/18 03/09/23 History intramuscular solution tamsulosin 0.4 mg capsule 0.4 mg PO QHS prostate 02/14/18 03/10/23 History divalproex 250 mg tablet,delayed 250 mg PO BID bipolar 03/11/23 03/11/23 History release sulfamethoxazole 800 1 tab PO Q12H #10 tabs 03/12/23 Unknown Rx mg-trimethoprim 160 mg tablet (Bactrim DS) cephalexin 500 mg capsule 500 mg PO Q12 #14 CAPSULES 07/25/23 Unknown Rx cephalexin 500 mg capsule 500 mg PO BID #10 caps 10/19/24 Unknown Rx Allergy/AdvReac Type Severity Reaction Status Date / Time gluten AdvReac Other Verified 10/19/24 11:25 Social History household members: family housing: house Smoking Status: Never smoker ROS ROS ED ROS Narrative Constitutional: Denies any fevers, chills Cardiovascular: Denies chest pain Respiratory: Denies shortness of breath Abdomen: Denies abdominal pain nausea vomit diarrhea : Complains urinary symptoms as noted above Neurological: Denies any numbness, weakness, tingling Musculoskeletal: Denies back pain Skin: Denies any rashes or lesions EXAM Physical Exam Narrative Exam Narrative: General: Patient was lying in bed rest comfortably did not appear to be in acute distress Head: Atraumatic, normocephalic Eyes: PERRL bilaterally, EOMI bilaterally, no conjunctival injection noted Neck: Soft, supple, trachea midline Cardiovascular: Regular rate and rhythm no murmurs gallops rubs are noted Respiratory: Clear to auscultation bilaterally Abdomen: Soft, nondistended, no tenderness to palpation Extremities: +5/5 strength noted in the bilateral upper and lower extremities, radial pulses +2/4 in the bilateral extremities Neurological: Patient follow commands knew that he was at the hospital is at baseline according to the caregiver at bedside Skin: Warm, dry, tact no rashes or lesions noted Const Vital Signs: 10/19/24 11:24 10/19/24 13:24 Temperature 98.9 F Temperature Source Temporal Pulse Rate 86 76 Respiratory Rate 14 16 Blood Pressure 131/90 H 128/70 H Blood Pressure Mean 103 89 Pulse Ox 98 98 Oxygen Delivery Method Room Air MDM MDM MDM Narrative Medical decision making narrative: Patient is a 54-year-old male who presented to the emergency department with a complaint of difficulty with urinating. 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 On the differential diagnose includes Melamin to urinary retention, UTI. Patient will have bladder scan performed. Bladder scan performed patient had 65 cc of urine in his bladder. Patient's urinalysis reviewed showed evidence of urinary tract infection with 100 leukocyte esterase 5-10 white cells with 2+ bacteria patient will be started on antibiotics. Urine was sent for culture. Discussed this plan and result with the caregiver at bedside they are agreeable this plan they like to go home at this point time. Encouraged to follow-up with the urologist and return with worsening symptoms or concerns. Zeus concerns answered he is discharged home in stable condition. Lab Data Labs: Laboratory Results - last 24 hr 10/19/24 13:54 Urine Color Yellow Urine Clarity Clear Urine pH 7.0 Ur Specific [place] 1.010 Urine Protein 30 H Urine Glucose (UA) Normal Urine Ketones Negative Urine Occult Blood Negative Urine Nitrite Negative Urine Bilirubin Negative Urine Urobilinogen Normal Ur Leukocyte Esterase 100 H Urine RBC 0-5 SEEN Urine WBC 5-10 SEEN Ur Squamous Epith Cells 0 SEEN Ur Renal Epithelial Cell 0-5 SEEN Urine Bacteria 2+ Urine Mucus 0 SEEN Discharge Plan Triage Chief Complaint: Complaint ED Provider: Jay Pritchard Dx/Rx/DC Orders Clinical Impression: Urinary frequency, Schizophrenia, Urinary tract infection Prescriptions: New cephalexin 500 mg capsule 500 mg PO BID Qty: 10 0RF No Action quetiapine [Seroquel] 300 MG tablet 300 tab PO QHS quetiapine 100 MG tablet 100 mg PO DAILY Rx Instructions: take in the am levothyroxine [Synthroid] 50 MCG tablet 50 mcg PO DAILY benztropine 2 MG tablet 2 mg PO QHS divalproex 500 MG tablet,delayed release (DR/EC) 1,000 mg PO QHS Patient Comments: pt takes 250mg in the am and pm, as well as two 500mg tablets in the pm tamsulosin 0.4 MG capsule 0.4 mg PO QHS haloperidol decanoate 100 MG/ML solution 75 mg IM QMONTH docusate sodium [DOK] 100 MG capsule 100 mg PO BID divalproex 250 mg tablet,delayed release (DR/EC) 250 mg PO BID Patient Comments: pt takes 250mg bid, as well as two 500mg tablets in the evening sulfamethoxazole-trimethoprim [Bactrim DS] 800-160 mg tablet 1 tab PO Q12H Qty: 10 0RF cephalexin 500 mg capsule 500 mg PO Q12 Qty: 14 0RF Primary Care Provider: Bry Duran Referrals: Bry Duran MD [Primary Care Provider] - Activity Restrictions/Additional Instructions: Follow-up your doctor in the outpatient setting. You are diagnosed with a urinary tract infection in the emergency department take antibiotics or symptoms pharmacy as prescribed. Print Language: Mohawk Disposition Disposition: Home, Self Care
[2024-10-19 13:24] VITALS: BP 128/70; PULSE 76; RESP 16; O2SAT 98
[2024-10-19 13:57] LABS: Mucous, Urine 0 SEEN /hpf (<or=2+); Squamous Epithelial Cells - UA 0 SEEN /hpf (0-5)
[2024-10-19 14:02] LABS: Color, Urine Yellow (Yellow); Glucose, Dipstick Normal (Normal); Ketone-Dipstick Negative (Negative); Leukocyte Esterase-Dipstick 100 /ul (Negative); Nitrite-Dipstick Negative (Negative); Occult Blood-Urine Negative /ul (Negative); Protein-Dipstick 30 mg/dl (Negative); Specific Gravity, Urine 1.010 (1.002-1.030); Urine Bilirubin Dipstick Negative (Negative)
[2024-10-19 14:13] LABS: Red Blood Cells-Urine 0-5 SEEN /hpf (0-5)
[2024-10-19 14:52] VITALS: BP 128/70; PULSE 76; RESP 16; TEMP 37; O2SAT 98
== END 2024-10-19 14:56 | disposition home or self-care (01) ==
PROVIDERS: Emergency Provider Emergency Medicine; PCP Family Medicine; Visit Provider Emergency Medicine
DX: N39.0 Urinary tract infection, site not specified (principal); F20.9 Schizophrenia, unspecified; F31.9 Bipolar disorder, unspecified; E03.9 Hypothyroidism, unspecified; F79 Unspecified intellectual disabilities; K90.0 Celiac disease; Z87.440 Personal history of urinary (tract) infections; Z79.890 Hormone replacement therapy; Z79.899 Other long term (current) drug therapy
CPT/HCPCS: 81001; 87077; 87086; 87088; 87186; 99282